=== PATIENT | male | born 1935 | race Caucasian/White ===

== ENCOUNTER 2017-03-26 06:00 | Outpatient (RCR) | payer SELFPAY | END 2017-04-17 23:59 | LOC: PR 06:00 | PROVIDERS: Family Provider Physician Assistant; PCP Physician Assistant; Visit Provider Family Medicine Geriatric Medicine | DX: Z00.00 Encounter for general adult medical examination without abnormal findings (principal) ==

== ENCOUNTER → 2017-07-04 06:58 | Outpatient (CLI) | payer MEDICARE, SELFPAY | PROVIDERS: Family Provider Physician Assistant; PCP Physician Assistant; Visit Provider Urology | DX: R97.20 Elevated prostate specific antigen [PSA] (principal) | CPT/HCPCS: 36415; 84153 ==

== ENCOUNTER → 2017-08-29 06:34 | Outpatient (CLI) | payer MEDICARE, SELFPAY ==
[2017-08-29 07:40] LABS: ALB/GLOB Ratio 1.1 RATIO (0.9-2.4); AST(SGOT) 16 U/L (15-37); Alanine Aminotransfer ALT/SGPT 22 U/L (16-61); Albumin, Serum 3.7 g/dL (3.2-5.0); Alkaline Phosphatase 80 U/L (45-117); Anion Gap 8 (5-15); BUN 20 mg/dL (7-18); BUN/Creat Ratio 16.9 RATIO (10-20); Calcium,Total 8.4 mg/dL (8.5-10.1); Chloride 101 mmol/L (98-107); Cholesterol 166 mg/dL (200); Creatinine, Serum 1.18 mg/dL (0.70-1.30); EST Glomerular Filtration Rate 63 mL/min (>60); Est Glom Filt Rate - Afr Amer 76 mL/min (>60); Globulin 3.5 g/dL (2.2-4.2); Glucose 92 mg/dL (74-106); High Density Lipoprotein 62 mg/dL; Potassium 4.2 mmol/L (3.5-5.1); Protein, Total 7.2 g/dL (6.4-8.2); Sodium Level 133 mmol/L (136-145); Thyroid Stim Hormone (TSH) 4.69 uIU/mL (0.358-3.74); Triglycerides 120 mg/dL; Very Low Density Lipoprotein 24 mg/dL (5-40)
[2017-08-29 08:18] LABS: Hemoglobin A1c 6.2 % (4.2-6.3)
[2017-08-30 08:21] LABS: Vitamin D,25 Hydroxy 24.6 ng/mL (29.95-100.01)
== END ==
PROVIDERS: Family Provider Physician Assistant; PCP Physician Assistant; Visit Provider Physician Assistant
DX: E11.22 Type 2 diabetes mellitus with diabetic chronic kidney disease (principal); N18.3 Chronic kidney disease, stage 3 (moderate); E78.2 Mixed hyperlipidemia; E55.9 Vitamin D deficiency, unspecified
CPT/HCPCS: 36415; 80053; 80061; 82306; 83036; 84443

== ENCOUNTER 2017-10-27 22:57 | Emergency (ER) | payer MEDICARE, SELFPAY ==
[2017-10-27 22:59] VITALS: BP 165/73; PULSE 55; RESP 16; TEMP 36.8; O2SAT 98; BMI 32.4
[2017-10-27 23:19] VITALS: BP 159/82; BP 170/77; BP 174/74; BP 174/77; PULSE 55; PULSE 56; PULSE 57; PULSE 58; RESP 14; O2SAT 96
--- NOTE | 2017-10-27 23:20 | ED.DCSUM_ITS ---
- ER Visit Summary Date of Service: 10/27/17 Chief Complaint: Acute generalized weakness and dizziness History of Present Illness: The patient is a 82 M history of CAD prior AR, cardiac stents ?3 and triple bypass. Patient also has a history of a prior prostatectomy for prostate CA. States 1-2 hours ago he had onset of dizziness. He did denies room spinning. He denies headache. He denies chest pain or shortness of breath. He just feels weak all over. No syncope. Denies any slurred speech or unilateral weakness or numbness. Denies any visual change. He denies any recent illness. Said he felt fine all day. Denies any nausea, vomiting, diarrhea, melena, fever or chills. No dysuria. Physical Examination: Well appearing older male comes in by his . Vital signs are stable afebrile. His heart rate is 55 they state that is his baseline he is on a beta-rabia. HEENT exam unremarkable. No facial droop. No slurred speech. Neck nontender. Lungs clear to auscultation bilaterally. Heart bradycardic rate 50-60 no appreciable murmur. Normal sinus rhythm. Abdomen soft and nontender. Normal bowel sounds. No peritoneal signs. He is moving all 4 extremities. They are neurovascularly intact. 5 out of 5 electronic semiconductor processor strength. Dorsi plantar flexion intact. No edema. Neurologically is awake and alert with no focal motor or sensory deficits. NIH is 0. Test Results: CBC normal. Normal hemoglobin and white count. Electrolytes unremarkable. Slightly signs of mild dehydration with a BUN 3 and a creatinine of 1. Troponin normal. Initial EKG sinus bradycardia rate of 52 but no change from prior EKG from 2016. Chest x-ray chronic changes no acute process with a prior sternotomy. Read both by myself and the radiologist. CAT scan of the brain showed chronic changes with chronic white matter changes but no acute process. No acute bleed or stroke as read by the radiologist and reviewed by me. His initial orthostatic vital signs his blood pressure did drop with standing. He was treated with p.o. fluids. Multiple repeat exams currently is doing well at 00 57. He walked to the bathroom on his own without any difficulty. His neurologic exam remains normal. Emergency Department Course and Treatment: Older male with known cardiac disease with onset of dizziness. Clinically this is not vertigo. He has a normal neurologic exam. He has had recent carotid studies which showed less than or equal to 50% stenosis. Currently has a normal neurologic exam Treatment Plan: Patient and are comfortable with him being discharged home. He will follow-up with his primary care provider as needed. Return if worse. Disposition: Discharge Impression: Acute generalized weakness and dizziness of uncertain etiology This note was generated with Brightfish dictation software. It may contain incorrect words, spelling, and punctuation that were not noted in review of the chart prior to signing ED Disposition - Plan for ED Patient: Chief Complaint: Dizziness Referrals: Chapito Das PA [Primary Care Provider] -
[2017-10-27 23:29] LABS: Absolute Lymphocyte Count 3.47 X10^3/ul (0.83-4.51); Absolute Neutrophil Count 3.5 X10^3/uL (2.0-7.7); Basophil# 0.05 X10^3/uL; Basophil% 0.6 % (0-1); Eosinophil# 0.65 X10^3/uL; Eosinophils% 7.5 % (0-5); Hematocrit 40.4 % (40-54); Hemoglobin 13.3 g/dl (13.0-16.5); Lymphocyte # 3.47 X10^3/ul (4.0); Lymphocyte % 40.1 % (19-41); Mean Corp Hgb Conc 32.9 g/gl (32-36); Mean Corpuscular Hgb 32.2 pg (27.0-32.0); Mean Corpuscular Volume 97.8 fL (80-94); Mean Platelet Vol. 9.4 fl (6.2-12.0); Monocyte# 0.94 X10^3/uL; Monocyte% 10.9 % (0-10); Neutrophil # 3.53 X10^3/uL (2.7-7.7); Neutrophil % 40.8 % (47-70); POSITIVE COUNT NO; POSITIVE DIFFERENTIAL NO; POSITIVE MORPHOLOGY NO; Platelet Count 200 K/mm3 (150-450); RBC Distribution Width CV 14.7 % (11.6-14.6); RBC Distribution Width SD 51.7 fl (35.1-43.9); Red Blood Count 4.13 M/mm3 (4.6-6.2); White Blood Count 8.7 K/mm3 (4.4-11.0)
[2017-10-27 23:46] LABS: Anion Gap 11 (5-15); BUN 23 mg/dL (7-18); BUN/Creat Ratio 22.1 RATIO (10-20); Calcium,Total 8.4 mg/dL (8.5-10.1); Chloride 100 mmol/L (98-107); Creatinine, Serum 1.04 mg/dL (0.70-1.30); EST Glomerular Filtration Rate 73 mL/min (>60); Est Glom Filt Rate - Afr Amer 88 mL/min (>60); Estimated Creatinine Clearance 62.96 ml/min; Glucose 109 mg/dL (74-106); Potassium 4.3 mmol/L (3.5-5.1); Sodium Level 136 mmol/L (136-145)
[2017-10-28 00:15] VITALS: BP 171/70; PULSE 52; RESP 20; O2SAT 94
--- NOTE | 2017-10-28 00:58 | ED.DEP ---
ED Disposition - Plan for ED Patient: Disposition: Home or Assisted Living Chief Complaint: Dizziness Instructions: ED Dizziness [facility] Referrals: Chapito Das PA [Primary Care Provider] - 3-5 Days if not improving Additional Instructions: Plenty of fluids and rest. Follow-up your primary care physician if not improving or return to the ER if feeling worse.
[2017-10-28 01:00] VITALS: BP 171/67; PULSE 50; RESP 15; O2SAT 97
== END 2017-10-28 01:07 | disposition home or self-care (01) ==
PROVIDERS: Emergency Provider Emergency Medicine; Family Provider Physician Assistant; PCP Physician Assistant
DX: R53.1 Weakness (principal); R42 Dizziness and giddiness; I25.10 Atherosclerotic heart disease of native coronary artery without angina pectoris; I25.2 Old myocardial infarction; Z95.1 Presence of aortocoronary bypass graft; Z95.5 Presence of coronary angioplasty implant and graft; Z85.46 Personal history of malignant neoplasm of prostate; E78.00 Pure hypercholesterolemia, unspecified; Z79.82 Long term (current) use of aspirin; Z79.01 Long term (current) use of anticoagulants; Z79.899 Other long term (current) drug therapy
CPT/HCPCS: 70450; 71045; 80048; 84484; 85025; 93005; 99284; A4216

== ENCOUNTER → 2018-01-02 06:41 | Outpatient (CLI) | payer MEDICARE, SELFPAY ==
[2018-01-02 07:21] LABS: Hematocrit 39.7 % (40-54); Hemoglobin 13.2 g/dl (13.0-16.5); Mean Corp Hgb Conc 33.2 g/gl (32-36); Mean Corpuscular Hgb 32.2 pg (27.0-32.0); Mean Corpuscular Volume 96.8 fL (80-94); Mean Platelet Vol. 9.5 fl (6.2-12.0); Platelet Count 204 K/mm3 (150-450); RBC Distribution Width CV 14.5 % (11.6-14.6); RBC Distribution Width SD 49.6 fl (35.1-43.9); White Blood Count 7.8 K/mm3 (4.4-11.0)
[2018-01-02 07:22] LABS: Scan Indicated on CBC? Y/N NO
[2018-01-02 07:51] LABS: ALB/GLOB Ratio 1.1 RATIO (0.9-2.4); AST(SGOT) 14 U/L (15-37); Alanine Aminotransfer ALT/SGPT 20 U/L (16-61); Albumin, Serum 3.6 g/dL (3.2-5.0); Alkaline Phosphatase 81 U/L (45-117); Anion Gap 7 (5-15); BUN 25 mg/dL (7-18); Calcium,Total 8.2 mg/dL (8.5-10.1); Chloride 101 mmol/L (98-107); Cholesterol 171 mg/dL (200); Creatinine, Serum 1.19 mg/dL (0.70-1.30); EST Glomerular Filtration Rate 62 mL/min (>60); Est Glom Filt Rate - Afr Amer 75 mL/min (>60); Globulin 3.4 g/dL (2.2-4.2); Glucose 87 mg/dL (74-106); High Density Lipoprotein 52 mg/dL; Potassium 4.5 mmol/L (3.5-5.1); Sodium Level 134 mmol/L (136-145); Triglycerides 142 mg/dL; Very Low Density Lipoprotein 28 mg/dL (5-40)
[2018-01-02 08:55] LABS: Vitamin D,25 Hydroxy 61.7 ng/mL (29.95-100.01)
== END ==
PROVIDERS: Family Provider Physician Assistant; PCP Physician Assistant; Referring Provider Physician Assistant; Visit Provider Physician Assistant
DX: N18.3 Chronic kidney disease, stage 3 (moderate) (principal); J44.9 Chronic obstructive pulmonary disease, unspecified; E78.2 Mixed hyperlipidemia
CPT/HCPCS: 36415; 80053; 80061; 82306; 85027

== ENCOUNTER 2018-05-23 09:42 | Emergency (ER) | payer MEDICARE, SELFPAY ==
[2018-05-23 09:42] VITALS: BP 139/65; PULSE 70; RESP 16; TEMP 36.2; O2SAT 95; BMI 33.4
--- NOTE | 2018-05-23 09:58 | RAD_ITS ---
STUDY: X-RAY - LEFT ELBOW REASON FOR EXAM: Male, 82 years old. Increased swelling of the left elbow after fall TECHNIQUE: 3 view(s) of the elbow. COMPARISON: None. FINDINGS: Normal visualized humerus, radius and ulna. Normal radiocapitellar and ulnotrochlear articulations. The soft tissue structures are unremarkable. There is no demonstrated fracture. Enthesophyte at the medial humeral epicondyle. RAD/Elbow min 3 Views IMPRESSION: No acute findings Electronically Signed: Wilbert Salazar DO at 10:39 EST Tel , Service support ,
--- NOTE | 2018-05-23 10:07 | ED.VIS.GEN ---
History of Present Illness Chief Complaint: Upper Extremity Injury Informant: Patient Onset: Today Context: Sudden Onset - awoke w/ sx this AM Timing: Continuous Quality: sore/painful Location: left elbow Current Severity: Moderate Maximum Severity: Moderate Worsened by: movement Relieved by: remaining still Associated Symptoms: swelling at elbow Narrative: LHD. Patient states he slipped on ice and fell onto his left upper extremity 1 week or more ago. He did not have discomfort he states until this morning when he woke up. Swelling started this morning too. He states he fell against his left shoulder but that has not been bothering him at all, and still is not no other injuries. He takes Plavix from a history of heart stents. - Past Medical History (1) CAD (coronary artery disease) Status: Chronic (2) COPD (chronic obstructive pulmonary disease) Status: Chronic (3) HLD (hyperlipidemia) Status: Chronic (4) HTN (hypertension) Status: Chronic (5) History of prostate cancer Status: Chronic (6) Hypothyroidism Status: Chronic Past Medical History - Allergies and Home Meds Allergies/Adverse Reactions: Allergies Penicillins Allergy (Verified 05/23/18 09:44) Hives Sulfa (Sulfonamide Antibiotics) Allergy (Verified 05/23/18 09:44) Hives minocycline Adverse Reaction (Verified 05/23/18 09:44) Nausea Primary Care Physician: Chapito Das PA [Primary Care Provider] - Surgical History: coronary bypass surgery Lives: Alone Smoking Status: Former smoker Review of Systems Gastrointestinal: Denies: Nausea, Vomiting Musculoskeletal: Reports: Swelling - Focal at left elbow, Extremity Pain. Denies: Neck pain, Back pain Neurological: Denies: Headache, Weakness, Parasthesia Physical Exam Vital Signs/Narrative: Vital Signs Temp Pulse Resp BP Pulse Ox 05/23/18 09:42 97.2 F L 70 16 139/65 H 95 Inital Vital Signs reviewed: Yes General: Well nourished, Well developed, No Acute Distress Head: Normocephalic, Atraumatic Extremities: Tenderness - Tenderness and swelling with ecchymosis about left radial head area. Olecranon nontender. Full range of motion with regards to flexion and extension, but has painful supination and pronation, limited due to pain. , - - Nontender throughout all bony aspects of left shoulder girdle, full range of motion without pain there. Skin: Normal color, Trauma - Ecchymosis about lateral aspect of left elbow. Skin is intact. Neurological: Alert, Oriented x3, Cranial nerves II-XII grossly intact, Normal Strength, Normal Sensation, Normal Gait, - - Left upper extremity radial, median, ulnar nerve function all intact, including AIN, PIN. Psychological: Normal affect, Normal Mood Diagnostic/Tx/Re-eval Clinical Impression(s) from Imaging Studies Elbow X-Ray 05/23/18 09:58 IMPRESSION: No acute findings Electronically Signed: Wilbert Salazar DO at 10:39 EST Tel , Service support , - Medical Decision Making X-rays are negative but I am suspicious of a possible occult radial head fracture. That is exactly where he is hurting and bruised. Will give him a sling. He declined analgesics here and states he has them at home. Advised to avoid heat and apply ice as needed, and follow-up with orthopedics. He is comfortable with that plan. ED Disposition - Plan for ED Patient: Disposition: Home or Assisted Living Diagnosis: Injury of elbow, left Instructions: ED Fx Radial Head Referrals: Chapito Das PA [Primary Care Provider] - Addison Garcia MD [STAFF PHYSICIAN] - (Call for appointment to be seen within the next week.) Additional Instructions: Use sling as much as you need. Let pain be your guide on what to do with your elbow. Pain medication and ice as needed, avoid applying heat.
== END 2018-05-23 12:48 | disposition home or self-care (01) ==
PROVIDERS: Emergency Provider Emergency Medicine; Family Provider Physician Assistant; PCP Physician Assistant
DX: S59.902A Unspecified injury of left elbow, initial encounter (principal); W00.9XXA Unspecified fall due to ice and snow, initial encounter; Y93.9 Activity, unspecified; Y92.9 Unspecified place or not applicable; I25.10 Atherosclerotic heart disease of native coronary artery without angina pectoris; I10 Essential (primary) hypertension; J44.9 Chronic obstructive pulmonary disease, unspecified; E78.5 Hyperlipidemia, unspecified; E03.9 Hypothyroidism, unspecified; Z95.1 Presence of aortocoronary bypass graft; Z95.5 Presence of coronary angioplasty implant and graft; Z85.46 Personal history of malignant neoplasm of prostate; Z79.01 Long term (current) use of anticoagulants; Z79.82 Long term (current) use of aspirin; Z79.899 Other long term (current) drug therapy; Z87.891 Personal history of nicotine dependence
CPT/HCPCS: 73080; 99283

== ENCOUNTER → 2018-06-07 07:01 | Outpatient (CLI) | payer MEDICARE, SELFPAY ==
[2018-05-23 09:42] VITALS: BMI 33.4
[2018-06-07 08:48] LABS: Hematocrit 41.9 % (40-54); Hemoglobin 13.5 g/dl (13.0-16.5); Mean Corp Hgb Conc 32.2 g/gl (32-36); Mean Corpuscular Hgb 31.5 pg (27.0-32.0); Mean Corpuscular Volume 97.9 fL (80-94); Mean Platelet Vol. 9.9 fl (6.2-12.0); Platelet Count 186 K/mm3 (150-450); RBC Distribution Width CV 14.9 % (11.6-14.6); RBC Distribution Width SD 51.5 fl (35.1-43.9); Red Blood Count 4.28 M/mm3 (4.6-6.2)
[2018-06-07 08:54] LABS: Scan Indicated on CBC? Y/N NO
[2018-06-07 09:11] LABS: Cholesterol 178 mg/dL (200); High Density Lipoprotein 55 mg/dL; Triglycerides 177 mg/dL; Very Low Density Lipoprotein 35 mg/dL (5-40)
[2018-06-07 09:56] LABS: ALB/GLOB Ratio 1.2 RATIO (0.9-2.4); AST(SGOT) 17 U/L (15-37); Alanine Aminotransfer ALT/SGPT 23 U/L (16-61); Albumin, Serum 3.7 g/dL (3.2-5.0); Alkaline Phosphatase 86 U/L (45-117); Anion Gap 6 (5-15); BUN 18 mg/dL (7-18); BUN/Creat Ratio 17.5 RATIO (10-20); Calcium,Total 8.6 mg/dL (8.5-10.1); Chloride 101 mmol/L (98-107); Creatinine, Serum 1.03 mg/dL (0.70-1.30); EST Glomerular Filtration Rate 74 mL/min (>60); Est Glom Filt Rate - Afr Amer 90 mL/min (>60); Globulin 3.1 g/dL (2.2-4.2); Glucose 83 mg/dL (74-106); Potassium 4.6 mmol/L (3.5-5.1); Protein, Total 6.8 g/dL (6.4-8.2); Sodium Level 134 mmol/L (136-145)
== END ==
PROVIDERS: Family Provider Physician Assistant; PCP Physician Assistant; Referring Provider Urology; Visit Provider Urology
DX: C61 Malignant neoplasm of prostate (principal); E78.2 Mixed hyperlipidemia; I25.119 Atherosclerotic heart disease of native coronary artery with unspecified angina pectoris; N18.3 Chronic kidney disease, stage 3 (moderate); E29.1 Testicular hypofunction; R97.20 Elevated prostate specific antigen [PSA]
CPT/HCPCS: 36415; 80053; 80061; 84153; 84403; 85027

== ENCOUNTER 2019-08-06 18:49 | Emergency (ER) | payer MEDICARE, SELFPAY ==
[2018-09-30 08:52] VITALS: BMI 32.8
[2019-08-06 18:49] VITALS: BP 152/85; PULSE 65; RESP 16; TEMP 36.1; O2SAT 97; BMI 31.9
--- NOTE | 2019-08-06 19:53 | ED.VIS.GEN ---
History of Present Illness Chief Complaint: Lower Extremity Injury Informant: Patient Narrative: Patient states for the past 2 weeks he has had pain in his calf. He thinks that maybe he bumped his upper right thigh because it started to turn green. Now he has some red dots on the lower leg. He is on aspirin and Plavix. He states he spoke with primary care and they wanted him to come in for an ultrasound to rule out DVT. No fevers. Past Medical History - Allergies and Home Meds Allergies/Adverse Reactions: Allergies Penicillins Allergy (Verified 05/23/18 09:44) Hives Sulfa (Sulfonamide Antibiotics) Allergy (Verified 05/23/18 09:44) Hives minocycline Adverse Reaction (Verified 05/23/18 09:44) Nausea Primary Care Physician: Chapito Das PA [Primary Care Provider] - 3-5 Days Surgical History: coronary bypass surgery Smoking Status: Former smoker Review of Systems General: Denies: Chills, Fever, Sweats Eyes: Denies: Visual changes - bilaterally, Diplopia ENT: Denies: Rhinorrhea, Sore throat Cardiovascular: Denies: Chest pain, Palpitations Respiratory: Denies: Dyspnea, Cough, Dyspnea on exertion Gastrointestinal: Denies: Abdominal pain, Nausea, Vomiting, Diarrhea, Melena, Hematochezia Genitourinary: Denies: Dysuria, Hematuria, Frequency Musculoskeletal: Reports: Swelling, Extremity Pain. Denies: Back pain Skin: Denies: Rash, Wounds Neurological: Denies: Headache, Weakness, Numbness Physical Exam Vital Signs/Narrative: Vital Signs Temp Pulse Resp BP Pulse Ox 08/06/19 18:49 97 F L 65 16 152/85 H 97 Inital Vital Signs reviewed: Yes General: Well nourished, Well developed, No Acute Distress Head: Normocephalic, Atraumatic Eyes: Perrl, EOMI ENT: Moist mucous membranes, No rhinorrhea Neck: Supple, Nontender Cardiovascular: Regular rate, Regular rhythm, No murmurs Respiratory: No distress, CTA bilaterally, Chest nontender Abdomen: Soft, Nontender, Nondistended, Normal bowel sounds Back: Nontender, Normal Inspection Extremities: Edema - Right slightly larger than left leg swelling on gross examination, Calf Tenderness - Patient is tender in the proximal calf and popliteal fossa., - - There is some nonblanching flat erythematous areas on his very distal right leg. There are not necessarily increased warmth. They do not change with elevation. Skin: Normal color, No rash Neurological: Alert, Oriented x3, Cranial nerves II-XII grossly intact, Normal Strength, Normal Sensation Psychological: Normal affect, Normal Mood Diagnostic/Tx/Re-eval - Medical Decision Making Duplex ultrasound reveals a fluid collection consistent with a Arango's cyst versus hematoma. I will see any ecchymosis in the region I think is most likely a Arango's cyst. Have him follow-up with primary care return if worsening or concerns ED Disposition - Plan for ED Patient: Disposition: Home or Assisted Living Diagnosis: Bakers cyst Instructions: ED Cyst Arango Referrals: Chapito Das PA [Primary Care Provider] - 3-5 Days
--- NOTE | 2019-08-06 19:56 | US_ITS ---
STUDY: VENOUS DOPPLER ULTRASOUND - RIGHT LOWER EXTREMITY REASON FOR EXAM: Male, 84 years old. RT LEG REDNESS AND SWELLING AROUND ANKLE-started posterior rt knee TECHNIQUE: Ultrasound evaluation of the deep vein system to include adams-scale imaging and compression was performed. Adams-scale imaging and Doppler sonographic evaluation, including duplex spectral analysis and qualitative color flow sonography, was performed. COMPARISON: None. FINDINGS: Common Femoral Vein: Normal compression, spontaneity and augmentation. Normal color Doppler. Common Femoral Vein/Greater Saphenous Junction: Normal compression. Deep Femoral Vein: Not assessed Femoral Proximal: Normal compression. Femoral Middle: Normal compression, spontaneity and augmentation. Normal color Doppler. Femoral Distal: Normal compression. Popliteal Vein: Normal compression, spontaneity and augmentation. Normal color Doppler. Posterior Tibial Vein: Normal compression. Peroneal Vein: Normal compression. Complex anechoic structure in the popliteal fossa, measuring 3.5 x 2.5 x 1.5 cm with a larger anechoic structure measuring 5.0 x 4.2 x 0.9 cm. US/Venous Duplex Imag/Limited/Uni IMPRESSION: No evidence for DVT of the left lower extremity. Complex anechoic structure in the popliteal fossa most likely represents a Arango''s cyst or hematoma. Electronically Signed: Joon Sandoval, at 21:02 EDT Tel , Service support ,
[2019-08-06 21:25] VITALS: BP 145/80; PULSE 68; RESP 16; O2SAT 99
== END 2019-08-06 21:30 | disposition home or self-care (01) ==
LOC: ED 21:26
PROVIDERS: Emergency Provider Emergency Medicine; PCP Physician Assistant
DX: M71.21 Synovial cyst of popliteal space [Baker], right knee (principal); M79.661 Pain in right lower leg; Z79.82 Long term (current) use of aspirin; Z79.02 Long term (current) use of antithrombotics/antiplatelets; Z95.5 Presence of coronary angioplasty implant and graft; Z79.891 Long term (current) use of opiate analgesic
CPT/HCPCS: 93971; 99282

== ENCOUNTER → 2020-01-02 06:59 | Outpatient (CLI) | payer MEDICARE, SELFPAY ==
[2020-01-02 08:27] LABS: Absolute Lymphocyte Count 2.67 X10^3/uL (0.83-4.51); Absolute Neutrophil Count 3.2 X10^3/uL (2.0-7.7); Basophil# 0.05 X10^3/uL; Basophil% 0.7 % (0-1); Eosinophil# 0.45 X10^3/uL; Eosinophils% 6.3 % (0-5); Hematocrit 39.5 % (40-54); Hemoglobin 12.7 g/dL (13.0-16.5); Lymphocyte # 2.67 X10^3/ul (4.0); Lymphocyte % 37.7 % (19-41); Mean Corp Hgb Conc 32.2 g/dL (32-36); Mean Corpuscular Hgb 31.7 pg (27.0-32.0); Mean Corpuscular Volume 98.5 fL (80-94); Mean Platelet Vol. 9.9 fl (6.2-12.0); Monocyte# 0.66 X10^3/uL; Monocyte% 9.3 % (0-10); NRBC Flagged by Analyzer 0 % (0-5); Neutrophil # 3.23 X10^3/uL (2.7-7.7); Neutrophil % 45.6 % (47-70); Platelet Count 175 K/mm3 (150-450); RBC Distribution Width CV 14.6 % (11.6-14.6); RBC Distribution Width SD 53.1 fl (35.1-43.9); Red Blood Count 4.01 M/mm3 (4.6-6.2); White Blood Count 7.1 K/mm3 (4.4-11.0)
[2020-01-02 09:29] LABS: Vitamin D,25 Hydroxy 51.7 ng/mL
[2020-01-02 12:01] LABS: AST(SGOT) 15 U/L (15-37); Alanine Aminotransfer ALT/SGPT 21 U/L (16-61); Albumin, Serum 3.5 g/dL (3.2-5.0); Alkaline Phosphatase 86 U/L (45-117); Anion Gap 5 (5-15); BUN 21 mg/dL (7-18); BUN/Creat Ratio 19.1 RATIO (10-20); Calcium,Total 8.2 mg/dL (8.5-10.1); Chloride 104 mmol/L (98-107); Cholesterol 159 mg/dL (200); EST Glomerular Filtration Rate 68 mL/min (>60); Est Glom Filt Rate - Afr Amer 82 mL/min (>60); Globulin 3.4 g/dL (2.2-4.2); Glucose 86 mg/dL (74-106); High Density Lipoprotein 63 mg/dL; Potassium 4.2 mmol/L (3.5-5.1); Protein, Total 6.9 g/dL (6.4-8.2); Sodium Level 136 mmol/L (136-145); Triglycerides 104 mg/dL; Very Low Density Lipoprotein 21 mg/dL (5-40)
== END ==
PROVIDERS: PCP Physician Assistant; Referring Provider Physician Assistant; Visit Provider Physician Assistant
DX: I25.119 Atherosclerotic heart disease of native coronary artery with unspecified angina pectoris (principal); N18.2 Chronic kidney disease, stage 2 (mild); E78.2 Mixed hyperlipidemia; E55.9 Vitamin D deficiency, unspecified; C61 Malignant neoplasm of prostate
CPT/HCPCS: 36415; 80053; 80061; 82306; 84153; 85025

== ENCOUNTER 2020-04-23 08:50 | Emergency (ER) | payer MEDICARE, SELFPAY ==
[2020-01-22 09:07] VITALS: BMI 31.9
[2020-04-23 08:52] VITALS: BP 107/56; PULSE 71; RESP 22; TEMP 36.1; O2SAT 96; BMI 32.1
[2020-04-23 09:29] VITALS: BP 126/57; PULSE 61; RESP 15; O2SAT 95
--- NOTE | 2020-04-23 09:35 | RAD_ITS ---
STUDY: X-RAY CHEST REASON FOR EXAM: Male, 84 years old. Fever and cough TECHNIQUE: Single AP portable view of the chest. COMPARISON: 2017 FINDINGS: EKG leads overlie the chest The lungs are clear and expanded. There is no demonstrated pleural abnormality. Sternal cerclage wires and vascular clips are present from a prior sternotomy and coronary artery bypass graft procedure (CABG). Normal mediastinum and carlos. Normal visualized pulmonary arteries. Normal visualized aortic arch and descending thoracic aorta. Normal visualized thoracic spine. Normal visualized ribs, clavicles, and shoulders. There is no demonstrated abnormality of the visualized soft tissue structures of the upper abdomen. RAD/Chest 1 View (Portable) IMPRESSION: No acute pulmonary process Electronically Signed: Arnold Brizuela MD at 10:55 EST , Service support ,
--- NOTE | 2020-04-23 09:35 | EKG12_ITS ---
Test Reason : FATIGUE Blood Pressure : / mmHG Vent. Rate : 061 BPM Atrial Rate : 061 BPM P-R Int : 218 ms QRS Dur : 094 ms QT Int : 444 ms P-R-T Axes : 036 -17 029 degrees QTc Int : 446 ms Sinus rhythm with 1st degree A-V block Otherwise normal ECG Confirmed by HUGO BOLTON, LENNIE ([id number]), book editor JILLIAN DE LA GARZA ([id number]) on 04/26/2020 8:17:41 AM Referred By: KIARA Confirmed By:LENNIE ARIAS MD
[2020-04-23 10:05] VITALS: PULSE 69; RESP 16
[2020-04-23 10:13] LABS: Absolute Lymphocyte Count 2.24 X10^3/uL (0.83-4.51); Absolute Neutrophil Count 2.8 X10^3/uL (2.0-7.7); Basophil# 0.01 X10^3/uL; Basophil% 0.2 % (0-1); Eosinophil# 0.05 X10^3/uL; Eosinophils% 0.8 % (0-5); Hematocrit 39.2 % (40-54); Hemoglobin 13.1 g/dL (13.0-16.5); Lymphocyte # 2.24 X10^3/ul (4.0); Lymphocyte % 37.5 % (19-41); Mean Corp Hgb Conc 33.4 g/dL (32-36); Mean Corpuscular Hgb 31.2 pg (27.0-32.0); Mean Corpuscular Volume 93.3 fL (80-94); Mean Platelet Vol. 9.6 fl (6.2-12.0); Monocyte# 0.89 X10^3/uL; Monocyte% 14.9 % (0-10); NRBC Flagged by Analyzer 0 % (0-5); Neutrophil # 2.78 X10^3/uL (2.7-7.7); Neutrophil % 46.4 % (47-70); Platelet Count 150 K/mm3 (150-450); RBC Distribution Width CV 14.3 % (11.6-14.6); RBC Distribution Width SD 48.6 fl (35.1-43.9)
[2020-04-23 10:27] LABS: AST(SGOT) 29 U/L (15-37); Alanine Aminotransfer ALT/SGPT 29 U/L (16-61); Albumin, Serum 3.4 g/dL (3.2-5.0); Alkaline Phosphatase 87 U/L (45-117); Anion Gap 7 (5-15); BUN 19 mg/dL (7-18); BUN/Creat Ratio 18.4 RATIO (10-20); Calcium,Total 8.2 mg/dL (8.5-10.1); Chloride 97 mmol/L (98-107); Creatinine, Serum 1.03 mg/dL (0.70-1.30); EST Glomerular Filtration Rate 73 mL/min (>60); Est Glom Filt Rate - Afr Amer 89 mL/min (>60); Estimated Creatinine Clearance 59.64 ml/min; Globulin 3.4 g/dL (2.2-4.2); Glucose 104 mg/dL (74-106); Potassium 4.3 mmol/L (3.5-5.1); Protein, Total 6.8 g/dL (6.4-8.2); Sodium Level 128 mmol/L (136-145)
[2020-04-23 10:36] LABS: Lactic Acid 1.1 mmol/L (0.4-1.9)
--- NOTE | 2020-04-23 10:37 | ED.DCSUM_ITS ---
- ER Visit Summary Date of Service: 04/23/20 Chief Complaint: Weakness History of Present Illness: The patient is a 84 M who presents with generalized weakness that is been getting worse over the past couple days. Patient states his symptoms began approximately 1-1/2 weeks ago. Patient had a positive COVID- 19 PCR test yesterday. Patient does admit to some general aches. Patient also admits to some pain in his chest. Patient denies any shortness of breath or cough. Patient states his symptoms improve whenever he lays down. Patient denies any fevers or chills. Patient denies any loss of taste or smell. Patient states his also tested positive for COVID-19. Physical Examination: Vital signs are stable. Patient is afebrile. Patient is in no acute distress. Oral mucosa is pink and moist. Neck is supple. Trachea is midline. There is no JVD noted. Heart was regular rate and rhythm. Lungs are diminished in the bases bilaterally. Abdomen is soft. Bowel sounds are normal. There is no tenderness. There is no rebound or guarding noted. Skin is warm dry. Cranial nerves II through XII are intact. There are no focal motor or sensory deficits noted. Extremities are intact. There is no calf tenderness or edema. Test Results: EKG was obtained. On my interpretation, there is a normal sinus rhythm with first-degree AV block with a rate of 61. There are no acute ST or T wave changes. Portable 1 view chest x-ray was obtained. On my interpretation, lung salazar are clear. There is normal cardiac silhouette. Bony thorax is normal. There is no acute process noted. Radiologist also interpreted the x- ray and agrees. CBC and comprehensive metabolic profile were obtained. There is mild hyponatremia with a sodium of 128. Lactate was normal. Emergency Department Course and Treatment: Patient was given albuterol inhaler here. Patient was feeling better on reevaluation. Patient was ambulated in his room and maintained pulse oximeter of 94% on room air. Patient was instructed t o continue his albuterol inhaler as needed. Patient was instructed to follow-up with his primary care physician in 3 to 5 days. Patient understood and was agreeable with the plan. All questions were answered. Disposition: Discharge home Impression: 1. COVID-19 This note was generated with Tamionation software. It may contain incorrect words, spelling, and punctuation that were not noted in review of the chart prior to signing ED Disposition - Plan for ED Patient: Disposition: Home or Assisted Living Diagnosis: COVID-19 Instructions: Coronavirus Disease 2019 (COVID-19): Overview Referrals: Chapito Das PA [Primary Care Provider] - 3-5 Days
[2020-04-23 11:15] VITALS: BP 137/92; PULSE 73; RESP 13; TEMP 36.7; O2SAT 94
[2020-04-23 12:23] VITALS: O2SAT 96
[2020-04-23 12:53] VITALS: BP 147/72; PULSE 68; RESP 15; O2SAT 95
== END 2020-04-23 13:17 | disposition home or self-care (01) ==
PROVIDERS: Emergency Provider Emergency Medicine; PCP Physician Assistant
DX: U07.1 COVID-19 (principal); I25.10 Atherosclerotic heart disease of native coronary artery without angina pectoris; Z95.1 Presence of aortocoronary bypass graft
CPT/HCPCS: 71045; 80053; 83605; 85025; 93005; 94640; 96360; 99284; J7040; A4216

== ENCOUNTER → 2020-06-16 06:32 | Outpatient (CLI) | payer MEDICARE, SELFPAY ==
[2020-06-16 07:55] LABS: AST(SGOT) 19 U/L (15-37); Alanine Aminotransfer ALT/SGPT 22 U/L (16-61); Albumin, Serum 3.6 g/dL (3.2-5.0); Alkaline Phosphatase 88 U/L (45-117); Bilirubin, Direct 0.14 mg/dL (0.00-0.30); Cholesterol 185 mg/dL (200); Globulin 3.8 g/dL (2.2-4.2); High Density Lipoprotein 68 mg/dL; Protein, Total 7.4 g/dL (6.4-8.2); Triglycerides 152 mg/dL; Very Low Density Lipoprotein 30 mg/dL (5-40)
== END ==
PROVIDERS: PCP Physician Assistant; Referring Provider Internal Medicine Cardiovascular Disease; Visit Provider Internal Medicine Cardiovascular Disease
DX: E78.00 Pure hypercholesterolemia, unspecified (principal)
CPT/HCPCS: 36415; 80061; 80076

== ENCOUNTER → 2021-03-01 10:28 | Outpatient (CLI) | payer MEDICARE, SELFPAY ==
--- NOTE | 2021-03-01 10:31 | ECHOD_ITS ---
Reason For Study: S/P CABG Procedure This was a 2D Doppler, Color Flow transthoracic echocardiogram. Exam performed in department. Left Ventricle Normal LV size. Left ventricular systolic function is normal. The estimated ejection fraction is 60 %. Stage 1 diastolic dysfunction. No regional wall motion abnormalities noted. Right Ventricle Normal RV size. Normal systolic function. Atria Normal left atrium. Normal right atrium. Mitral Valve Normal mitral valve. Tricuspid Valve Normal tricuspid valve. Mild tricuspid valve insufficiency. Aortic Valve Trisinus/trileaflet aortic valve. Mild (1+) aortic valve insufficiency. Pulmonic Valve The pulmonic valve is not well visualized. Great Vessels Normal aortic root. The pulmonary artery is normal size. Normal inferior vena cava. Pericardium/Pleural No pericardial effusion. MMode/2D Measurements & Calculations LVIDd: 5.1 cm IVSd: 1.1 cm LVOT diam: 2.1 cm LVIDs: 3.7 cm LVPWd: 1.3 cm LVOT area: 3.6 cm2 RVDd: 3.4 cm FS: 27.7 % Ao root diam: 3.4 cm LAV(MOD-bp): 92.6 ml LA A4 area: 27.5 cm2 LAV(MOD-bp) Indexed: 40.2 ml/m2 LAV(MOD-sp2): 91.7 ml LAV(MOD-sp4): 91.8 ml LA dimension(2D): 4.3 cm RA A4 area: 20.0 cm2 Time Measurements MV dec time: 0.20 sec Doppler Measurements & Calculations MV E max vernon: 71.1 cm/sec Lat Peak E' Vernon: 10.5 cm/sec Med Peak E' Vernon: 5.9 cm/sec MV A max vernon: 75.3 cm/sec E/E' lat: 6.8 E/E' med: 12.0 MV E/A: 0.94 Ao V2 max: 97.2 cm/sec AI max vernon: 390.3 cm/sec LV V1 max: 78.0 cm/sec Ao max P.8 mmHg AI max P.0 mmHg LV V1 max P.4 mmHg Ao V2 mean: 67.7 cm/sec AI dec slope: 161.6 cm/sec2 LV V1 mean P.2 mmHg Ao mean P.0 mmHg AI P1/2t: 707.5 msec LV V1 mean: 51.0 cm/sec Ao V2 VTI: 24.7 cm LV V1 VTI: 19.1 cm YAEL(I,D): 2.8 cm2 YAEL(V,D): 2.9 cm2 SV(LVOT): 69.0 ml PA V2 max: 85.5 cm/sec ECHO/Echo Complete Interpretation Summary Normal LV size. Left ventricular systolic function is normal. The estimated ejection fraction is 60 %. Stage 1 diastolic dysfunction. Mild (1+) aortic valve insufficiency. Ordering Physician: Jesús Antonio Referring Physician: Keaton Das Performed By: Roma Ch, PEYMAN, RVT
== END ==
PROVIDERS: PCP Physician Assistant; Referring Provider Internal Medicine Cardiovascular Disease; Visit Provider Internal Medicine Cardiovascular Disease
DX: I25.10 Atherosclerotic heart disease of native coronary artery without angina pectoris (principal)
CPT/HCPCS: 93306

== ENCOUNTER 2021-10-12 08:00 | Outpatient (RCR) | payer SELFPAY | END 2021-10-15 23:59 | LOC: PR 08:00 | PROVIDERS: PCP Physician Assistant; Visit Provider Family Medicine Geriatric Medicine | DX: Z00.00 Encounter for general adult medical examination without abnormal findings (principal) ==

== ENCOUNTER 2021-11-14 08:00 | Outpatient (RCR) | payer SELFPAY | END 2021-11-15 23:59 | LOC: PR 08:00 | PROVIDERS: PCP Physician Assistant; Referring Provider Family Medicine Geriatric Medicine; Visit Provider Family Medicine Geriatric Medicine | DX: Z00.00 Encounter for general adult medical examination without abnormal findings (principal) ==

== ENCOUNTER 2021-12-14 08:00 | Outpatient (RCR) | payer SELFPAY | END 2021-12-15 23:59 | LOC: PR 08:00 | PROVIDERS: PCP Physician Assistant; Referring Provider Family Medicine Geriatric Medicine; Visit Provider Family Medicine Geriatric Medicine | DX: Z00.00 Encounter for general adult medical examination without abnormal findings (principal) ==

== ENCOUNTER 2022-01-11 08:00 | Outpatient (RCR) | payer SELFPAY | END 2022-01-15 23:59 | LOC: PR 08:00 | PROVIDERS: PCP Physician Assistant; Referring Provider Family Medicine Geriatric Medicine; Visit Provider Family Medicine Geriatric Medicine | DX: Z00.00 Encounter for general adult medical examination without abnormal findings (principal) ==

== ENCOUNTER 2022-02-13 08:00 | Outpatient (RCR) | payer SELFPAY | END 2022-02-14 23:59 | LOC: PR 08:00 | PROVIDERS: PCP Physician Assistant; Referring Provider Family Medicine Geriatric Medicine; Visit Provider Family Medicine Geriatric Medicine | DX: Z00.00 Encounter for general adult medical examination without abnormal findings (principal) ==

== ENCOUNTER 2022-03-15 08:00 | Outpatient (RCR) | payer SELFPAY | END 2022-03-17 23:59 | LOC: PR 08:00 | PROVIDERS: PCP Physician Assistant; Referring Provider Family Medicine Geriatric Medicine; Visit Provider Family Medicine Geriatric Medicine | DX: Z00.00 Encounter for general adult medical examination without abnormal findings (principal) ==

== ENCOUNTER 2022-03-29 08:00 | Outpatient (RCR) | payer SELFPAY | END 2022-04-17 23:59 | LOC: PR 08:00 | PROVIDERS: PCP Physician Assistant; Visit Provider Family Medicine Geriatric Medicine | DX: Z00.00 Encounter for general adult medical examination without abnormal findings (principal) ==

== ENCOUNTER → 2022-12-18 | Outpatient (CLI) | payer MEDICARE, SELFPAY ==
--- NOTE | 2022-12-18 11:58 | RAD_ITS ---
INDICATION: ATHEROSCLEROSIS OF [place] CORONARY ARTERY, FATIGUE EXAMINATION/TECHNIQUE: X-RAY - XR Chest 2 Views COMPARISON: Prior study dated: 04/23/2020. FINDINGS: LINES/DEVICES: None. LUNGS: Mild stranding/scarring in the lung bases. No focal infiltrate is seen. No evidence of pleural effusions. MEDIASTINUM AND CARDIOVASCULAR STRUCTURES: Status post median sternotomy. Normal cardiac silhouette. BONES AND SOFT TISSUES: No demonstrated acute osseous changes. RAD/Chest PA and Lateral IMPRESSION: No radiographic evidence of acute cardiopulmonary disease. Electronically Signed: Elias Perkins MD at 12:58 EDT ,
== END | disposition home or self-care (01) ==
LOC: RAD 11:46
PROVIDERS: PCP Physician Assistant; Referring Provider Physician Assistant; Visit Provider Physician Assistant
DX: I25.119 Atherosclerotic heart disease of native coronary artery with unspecified angina pectoris (principal); R53.83 Other fatigue
CPT/HCPCS: 71046

== ENCOUNTER → 2022-12-19 | Outpatient (CLI) | payer MEDICARE, SELFPAY ==
[2022-12-19 08:16] LABS: Absolute Neutrophil Count 3.9 X10^3/uL (2.0-7.7); Basophil# 0.06 X10^3/uL; Basophil% 0.8 % (0-1); Eosinophil# 0.35 X10^3/uL; Eosinophils% 4.7 % (0-5); Hematocrit 35.7 % (40-54); Hemoglobin 11.6 g/dL (13.0-16.5); Lymphocyte % 29.6 % (19-41); Mean Corp Hgb Conc 32.5 g/dL (32-36); Mean Corpuscular Hgb 30.6 pg (27.0-32.0); Mean Corpuscular Volume 94.2 fL (80-94); Monocyte# 0.81 X10^3/uL; Monocyte% 10.9 % (0-10); NRBC Flagged by Analyzer 0 % (0-5); Neutrophil # 3.94 X10^3/uL (2.7-7.7); Neutrophil % 53.2 % (47-70); Platelet Count 251 K/mm3 (150-450); RBC Distribution Width CV 14.9 % (11.6-14.6); RBC Distribution Width SD 51.6 fl (35.1-43.9); Red Blood Count 3.79 M/mm3 (4.6-6.2); White Blood Count 7.4 K/mm3 (4.4-11.0)
[2022-12-19 08:33] LABS: ALB/GLOB Ratio 0.8 RATIO (0.9-2.4); AST(SGOT) 20 U/L (15-37); Alanine Aminotransfer ALT/SGPT 15 U/L (16-61); Alkaline Phosphatase 304 U/L (45-117); Anion Gap 7 (5-15); BUN 15 mg/dL (7-18); BUN/Creat Ratio 16.3 RATIO (10-20); Calcium,Total 8.4 mg/dL (8.5-10.1); Chloride 98 mmol/L (98-107); Cholesterol 138 mg/dL (200); Creatinine, Serum 0.92 mg/dL (0.70-1.30); EST Glomerular Filtration Rate 83 mL/min (>60); Est Glom Filt Rate - Afr Amer 100 mL/min (>60); Glucose 100 mg/dL (74-106); High Density Lipoprotein 58 mg/dL; Potassium 4.4 mmol/L (3.5-5.1); Sodium Level 129 mmol/L (136-145); Triglycerides 103 mg/dL; Very Low Density Lipoprotein 21 mg/dL (5-40)
[2022-12-19 09:32] LABS: Erythrocyte Sedimentation Rate 53 mm/hr (0-20)
== END | disposition home or self-care (01) ==
PROVIDERS: PCP Physician Assistant; Referring Provider Physician Assistant; Visit Provider Physician Assistant
DX: C61 Malignant neoplasm of prostate (principal); E78.2 Mixed hyperlipidemia; R53.83 Other fatigue; R63.4 Abnormal weight loss
CPT/HCPCS: 36415; 80053; 80061; 84153; 85025; 85652; 86140

== ENCOUNTER → 2022-12-27 | Outpatient (CLI) | payer MEDICARE, SELFPAY ==
--- NOTE | 2022-12-27 07:46 | RDU_ITS ---
Reason For Study: Abnormal weight loss Aorta Distal abdominal aorta 2.26 x 2.47 cm . Distal abdominal aorta peak systolic velocity is 147.4 cm/sec . . Celiac A - 410.5/88.3 cm/s Hepatic A - 317.0/ 92.9 cm/s Splenic A - Unable to visualize. SMA ALISE - 280.0/40.7 cm/s SMA Prox - 355.9/35.5 cm/s SMA Mid - 178.8/5.9 cm/s SMA Dist - 194.4/13.3 cm/s LORRAINE Prox - 97.9/12.4 cm/s. Procedures Mesenteric Artery Duplex with color and pulsed wave doppler. Limited views obtained. Technically difficult exam due to bowel gas and acoustic shadowing. 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
--- NOTE | 2022-12-27 07:46 | AAVD_ITS ---
Reason For Study: Abnormal weight loss Aorta Measurements Aorta Doppler Measurements Proximal aorta measures2.24 x 2.20cm. in cross- Peak systolic flow velocities within the proximal sectional axis. aorta measure 89.7 cm/sec. Proximal aorta measures2.28cm. in longitudinal Peak systolic flow velocities within the mid aorta axis. measure 90.2 cm/sec. Mid aorta measures2.68 x 2.55cm. in cross- Peak systolic flow velocities within the distal sectional axis. aorta measure 112.8 cm/sec. Mid aorta measures2.64cm. in longitudinal axis. Distal aorta measures2.63 x 2.60cm. in cross- sectional axis. Distal aorta measures2.59cm. in longitudinal axis. Left Iliac Artery Left iliac artery measures 1.57 x 1.58 cm. in the cross-sectional axis. Left iliac artery measures 1.61 cm. in the longitudinal axis. Peak systolic velocity in the left iliac artery measures 147.6 cm/sec. Right Iliac Artery Right iliac artery measures 0.88 x 0.93 cm. in the cross-sectional axis. Right iliac artery measures 0.95 cm. in the longitudinal axis. Peak systolic velocity in the right iliac artery measures 243.0 cm/sec. Procedure Aorta IVC Iliac vasculature or bypass grafts 36768. Exam performed in department. Technically difficult exam due to bowel gas and acoustic shadowing. VL/Abd Aortic/IVC Duplex scan Interpretation Summary Aorta patent with ectasia to 2.68 cm present Right iliac artery patent with ectasia to 1.58 cm present Left iliac artery normal caliber with >50% stenosis Ordering Physician: Chapito Das Referring Physician: Chapito Das Performed By: Al Ball RVT
--- NOTE | 2022-12-27 07:55 | US_ITS ---
INDICATION: WEIGHT LOSS EXAMINATION: Ultrasound US Kidney(s) complete (eg, kidneys and bladder) TECHNIQUE: Adams scale and color doppler images were obtained of the kidneys. COMPARISON: No relevant prior comparison study available FINDINGS: RIGHT KIDNEY: The right kidney measures 10.1 cm in length. There is no hydronephrosis. No shadowing calculus, focal lesion or perinephric collection is demonstrated. LEFT KIDNEY: The left kidney measures 11.6 cm in length. There is no hydronephrosis. No shadowing calculus, focal lesion or perinephric collection is demonstrated. URINARY BLADDER: No acute abnormality. US/Kidney and Bladder IMPRESSION: Within normal limits renal ultrasound. Electronically Signed: Mariana Jalloh MD at 13:17 EDT ,
== END | disposition home or self-care (01) ==
PROVIDERS: PCP Physician Assistant; Referring Provider Physician Assistant; Visit Provider Physician Assistant
DX: R09.89 Other specified symptoms and signs involving the circulatory and respiratory systems (principal); R63.4 Abnormal weight loss; R33.9 Retention of urine, unspecified; R35.0 Frequency of micturition
CPT/HCPCS: 76770; 93975; 93978

== ENCOUNTER → 2023-01-02 | Outpatient (CLI) | payer MEDICARE, SELFPAY ==
--- NOTE | 2023-01-02 08:55 | NM_ITS ---
CLINICAL: 87-year-old male with history of primary prostate carcinoma with rising serum PSA level. WHOLE BODY 99m Tc MDP RADIONUCLIDE BONE SCINTIGRAPHY COMPARISON: Previous whole body bone scintigraphy study dated 02/14/2015 FINDINGS: Following the intravenous administration of 26.9 mCi of 99m Tc MDP, whole body bone images reveal: 1. Newly visualized multifocal increased radiopharmaceutical concentration is defined in the axial skeletal structures to include the bilateral hemipelvis, right-left anterior and posterior ribs, multiple thoracic and lumbar vertebra, the sacrum, the bilateral proximal femurs and humerus. 2. Enhanced uptake appears evident in the right-left midfoot. 3. The remaining skeletal structures are scintigraphically unremarkable with normal-appearing renal images and urinary bladder activity identified. NM/Bone Scan Whole Body IMPRESSION: 1. The increase in tracer distribution multifocally defined in both the axial and appendicular skeleton is commensurate with diffuse skeletal metastatic disease. 2. Degenerative arthrosis is presently expressed in the bilateral midfoot. 3. Overall compared to the previous whole body bone scintigraphy study dated 02/14/2015, there is interim development of disseminated osseous metastasis. Electronically Signed: Wander Bergeron DO at 21:28 EDT ,
== END | disposition home or self-care (01) ==
PROVIDERS: PCP Physician Assistant; Referring Provider Urology; Visit Provider Urology
DX: C61 Malignant neoplasm of prostate (principal); R97.20 Elevated prostate specific antigen [PSA]
CPT/HCPCS: 78306; A9503

== ENCOUNTER → 2023-01-08 | Outpatient (CLI) | payer MEDICARE, SELFPAY ==
--- NOTE | 2023-01-08 14:50 | CT_ITS ---
EXAM: CT ABDOMEN AND PELVIS WITH INTRAVENOUS CONTRAST CLINICAL INDICATION: MALIGNANT NEOPLASM OF PROSTATE TECHNIQUE: Helically acquired images were obtained of the abdomen and pelvis with intravenous contrast. This CT exam was performed using one or more of the following dose reduction techniques: automated exposure control, adjustment of the mA and/or kV according to patient size, and/or use of iterative reconstruction technique. CONTRAST: IV 100mL Isovue-[id number] COMPARISON: No relevant prior studies available. 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 No cardiomegaly. No significant pericardial effusion. ABDOMEN: LIVER: Unremarkable. Homogeneous. No focal mass. GALLBLADDER AND BILE DUCTS: There are gallstones present but no inflammation. No gallbladder distention or wall edema. No intra- or extrahepatic biliary ductal dilation. PANCREAS: Unremarkable. No focal cystic or solid mass. SPLEEN: There are small splenic granulomas. ADRENALS: There is a 2.0 x 2.0 cm low-density mass right adrenal gland which may represent an adenoma. KIDNEYS AND URETERS: Unremarkable. Normal renal size and position. No hydronephrosis. STOMACH AND BOWEL: There is sigmoid diverticulosis with no evidence of diverticulitis. No stomach or bowel distention. PELVIS: APPENDIX: No evidence of acute appendicitis. BLADDER: Unremarkable. REPRODUCTIVE: Patient is status post prostatectomy. There are several seeds within the pelvis. ABDOMEN and PELVIS: INTRAPERITONEAL SPACE: Unremarkable. No ascites or other fluid collection. No free air. BONES/JOINTS: There are areas of sclerosis seen in the lumbar spine which may represent developing metastatic disease. There are also mildly increased density in the right inferior pubic ramus. 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 SOFT TISSUES: Unremarkable. No discrete abdominal or pelvic wall hernia. VASCULATURE: Unremarkable. Abdominal aorta is non-dilated. LYMPH NODES: Unremarkable. No enlarged lymph nodes. CT/Abdomen/Pelvis W IV Cont ONLY IMPRESSION: 1. Mild increased density within several lumbar vertebral bodies in right inferior pubic ramus which may represent metastatic disease. 2. 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 3. No acute abnormalities in the abdomen or pelvis. Electronically Signed: Efrain Dial MD at 22:14 EDT ,
== END | disposition home or self-care (01) ==
LOC: CT 14:49
PROVIDERS: PCP Physician Assistant; Referring Provider Urology; Visit Provider Urology
DX: C61 Malignant neoplasm of prostate (principal)
CPT/HCPCS: 74177; Q9967; A4216

== ENCOUNTER → 2023-04-09 | Outpatient (CLI) | payer MEDICARE, SELFPAY ==
--- OUTSIDE RECORDS SUMMARY | 2023-04-09 07:10 | XMS RPT_ITS | CCD ---
Author Name Unknown Address [address] [place] [address] Organization [facility] Care Team Providers Care Director Camp Name Role Phone Danna Mota Unavailable Margie REGAN, Diana Lipscomb Unavailable Unavailable Danna Mota Unavailable Chapito Das PA-C Primary Care Provider [phone] Chapito Das PA-C Primary Care Provider [phone] Chapito Das PA-C Primary Care Provider [phone] Chapito DAS Referring Unavailable Chapito DAS Primary Care Unavailable Chapito DAS Attending Unavailable Chapito DAS Primary Care Unavailable Chapito DAS Referring Unavailable Chpaito DAS Primary Care Unavailable Allergies Allergy Classification Reported Allergen(s) Allergy Type Date of Onset Reaction(s) Facility (20 sources) erythromycin; Translations: [ERYTHROMYCIN] drug allergy 1 [facility] Work Phone: [phone] (20 sources) minocycline; Translations: [MINOCYCLINE] drug allergy 6 GI Upset, Vomiting [facility] Work Phone: (6 sources) penicillin drug allergy 1 Hives [facility] Work Phone: (6 sources) Sulfonamides (Antibiotic) drug allergy 1 [facility] Work Phone: (3 sources) Penicillins; Translations: [PENICILLINS] Drug Allergy 5 [facility] Work Phone: (20 sources) Sulfonamides (Antibiotic); Translations: [SULFA (SULFONAMIDE ANTIBIOTICS)] Propensity to adverse reactions 5 [facility] (20 sources) Penicillins Drug Allergy 5 [facility] Work Phone: Medications Current Medications Medication Drug Class(es) Dates Sig (Normalized) Sig (Original) benzonatate 100 mg oral capsule (2 sources) Non-narcotic Antitussive Start: 06-17-2021 End: 06-24-2021 take 1 capsule by mouth twice daily as needed for cough benzonatate (TESSALON PERLES) 100 mg capsule Indications: Suspected COVID-19 virus infection Take 1 capsule by mouth twice daily as needed for cough for up to 7 days. 14 capsule 0 06/17/2021 06/24/2021 Active Completed/Discontinued Medications Medication Drug Class(es) Dates Sig (Normalized) Sig (Original) acetaminophen / HYDROcodone (6 sources) Opioid Agonist Start: 01-31-2011 End: 03-23-2014 VICODIN 5-500 MG TABS one to two tabs four times a day as needed for pain HYDROCODONE-ACETAMI NOPHEN [id number] Nadine Garnica PA-C Problems Active Problems Problem Classification Problem Date Documented Date Episodic/Chronic Acute myocardial infarction (3 sources) Non-ST elevation (NSTEMI) myocardial infarction; Translations: [Non-ST elevation (NSTEMI) myocardial infarction] Onset: 07-26-2010 07-26-2010 Chronic Cancer of prostate (20 sources) Malignant tumor of prostate; Translations: [Malignant neoplasm of prostate] Onset: 03-05-2005 03-05-2005 Chronic Cardiac dysrhythmias (14 sources) Paroxysmal ventricular tachycardia; Translations: [Paroxysmal ventricular tachycardia] Onset: 07-26-2010 07-26-2010 Chronic Chronic kidney disease (20 sources) Chronic kidney disease stage 3; Translations: [Chronic kidney disease, stage 3, mod decreased GFR] Onset: 02-17-2016 02-17-2016 Chronic Chronic obstructive pulmonary disease and bronchiectasis (20 sources) Chronic obstructive lung disease; 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] Onset: 07-26-2010 07-26-2010 Chronic Coagulation and hemorrhagic disorders (11 sources) Platelet count below reference range; Translations: [Thrombocytopenia, unspecified] Onset: 12-18-2022 12-18-2022 Chronic Complication of device; implant or graft (3 sources) Atherosclerosis of coronary artery bypass graft(s) without angina pectoris; Translations: [Atherosclerosis of coronary artery bypass graft(s) without angina pectoris] Onset: 07-26-2010 09-28-2015 Chronic Coronary atherosclerosis and other heart disease (20 sources) Old myocardial infarction; Translations: [Atherosclerotic heart disease of [place] coronary artery without angina pectoris] Onset: 07-26-2010 08-06-2016 Chronic Disorders of lipid metabolism (20 sources) Hyperlipidemia; Translations: [Mixed hyperlipidemia] Onset: 07-26-2010 07-26-2010 Chronic Diverticulosis and diverticulitis (20 sources) Diverticulitis of large intestine; Translations: [Diverticulitis of large intestine without perforation or abscess without bleeding] Onset: 10-30-2011 07-05-2017 Chronic Immunizations and screening for infectious disease (1 source) Suspected disease caused by 2019-nCoV; Translations: [Suspected COVID-19 virus infection] Episodic Other inflammatory condition of skin (20 sources) Rosacea; Translations: [Rosacea, unspecified] Onset: 01-19-2016 01-19-2016 Chronic Other non-traumatic joint disorders (1 source) Pain in left shoulder; Translations: [Pain in joint, shoulder region] 01-01-2023 Episodic Other nutritional; endocrine; and metabolic disorders (5 sources) Body mass index (BMI) 34.0-34.9, adult; Translations: [Body mass index (BMI) 33.0-33.9, adult] Onset: 09-17-2013 03-29-2015 Chronic Other nutritional; endocrine; and metabolic disorders (1 source) Body mass index (BMI) 33.0-33.9, adult; Translations: [Body mass index (BMI) 33.0-33.9, adult] Onset: 09-17-2013 09-17-2013 Chronic Other nutritional; endocrine; and metabolic disorders (20 sources) Obese class I; Translations: [Obesity, unspecified] Onset: 07-05-2017 07-05-2017 Chronic Unclassified (2 sources) Placement of stent in coronary artery ; Translations: [Presence of other cardiac implants and grafts] Onset: 07-26-2010 08-06-2016 Unclassified (1 source) 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; Translations: [Presence of aortocoronary bypass graft] Onset: 07-26-2010 08-06-2016 Past or Other Problems Problem Classification Problem Date Documented Da te Episodic/Chronic Conditions associated with dizziness or vertigo (6 sources) Dizziness; Translations: [Dizziness and giddiness] Onset: 07-26-2010 08-06-2016 Episodic Coronary atherosclerosis and other heart disease (8 sources) Presence of aortocoronary bypass graft; Translations: [Coronary angioplasty status] Onset: 07-26-2010 07-26-2010 Episodic Fluid and electrolyte disorders (20 sources) Hyponatremia; Translations: [Hypo-osmolality and hyponatremia] Onset: 01-19-2016 01-19-2016 Episodic Malaise and fatigue (1 source) Other fatigue; Translations: [Fatigue, unspecified type] Onset: 12-18-2022 Episodic Neoplasms of unspecified nature or uncertain behavior (6 sources) Neoplasm of unspecified behavior of bone, soft tissue, and skin; Translations: [Neoplasm of unspecified behavior of bone, soft tissue, and skin] Onset: 12-28-2010 12-31-2010 Episodic Other aftercare (7 sources) Other 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 renewal 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 (current) drug therapy; Translations: [Long-term (current) use of other medications] Onset: 06-06-2011 Resolved: 09-27-2014 09-27-2014 Episodic Other and unspecified benign neoplasm (3 sources) Other benign neoplasm of skin of unspecified eyelid, including canthus; Translations: [Other benign neoplasm of skin of unspecified eyelid, including canthus] Onset: 12-28-2010 02-11-2011 Episodic Other circulatory disease (6 sources) Abnormal result of cardiovascular function study, unspecified; Translations: [Abnormal result of cardiovascular function study, unspecified] Onset: 07-26-2010 Resolved: 08-06-2016 08-06-2016 Episodic Other non-epithelial cancer of skin (20 sources) Basal cell carcinoma of skin of unspecified parts of face; Translations: [Basal cell carcinoma of face] Onset: 12-28-2010 02-11-2011 Episodic Other screening for suspected conditions (not mental disorders or infectious disease) (20 sources) Raised prostate specific antigen; Translations: [Elevated prostate specific antigen [PSA]] Onset: 01-19-2016 03-14-2021 Episodic Syncope (3 sources) Near syncope; Translations: [Syncope and collapse] Onset: 08-06-2016 08-06-2016 Episodic Unclassified (4 sources) Preoperative cardiovascular examination ; Translations: [Encounter for preprocedural cardiovascular examination] Onset: 07-26-2010 Resolved: 08-06-2016 08-06-2016 Unclassified (2 sources) Long-term drug therapy; Translations: [Long-term (current) use of other medications] Onset: 06-06-2011 Resolved: 09-27-2014 06-06-2011 Results Test Name Value Interpretation Reference Range Facil ity Vital Signs Date Time Vital Sign Value Performing Clinician Lorraine colbert 06-17-2021 09:47-0400 Body temperature 97.9 [degF] Arianne Praisler-Wood [employer] Work Phone: [facility] 06-17-2021 09:47-0400 Body weight 107.86 kg Arianne Praisler-Wood [employer] Work Phone: [facility] 06-17-2021 09:47-0400 Diastolic blood pressure 72 mm[Hg] Arianne Praisler-Wood [employer] Work Phone: [facility] 06-17-2021 09:47-0400 Heart rate 75 /min Arianne Praisler-Wood [employer] Work Phone: [facility] 06-17-2021 09:47-0400 Respiratory rate 18 /min Arianne Praisler-Wood [employer] Work Phone: [facility] 06-17-2021 09:47-0400 SaO2% (BldA) [Mass fraction] 98 % Arianne Praisler-Wood [employer] Work Phone: [facility] 06-17-2021 09:47-0400 Systolic blood pressure 122 mm[Hg] Arianne Praisler-Wood [employer] Work Phone: [facility] 08-07-2016 16:35-0400 BMI (Body Mass Index) 34.09 kg/m2 Danna [facility] Work Phone: 08-07-2016 16:35-0400 Body weight 118.84 kg D[facility] Work Phone: 08-07-2016 16:35-0400 BP Diastolic 60 mm[Hg] Danna [facility] Work Phone: 08-07-2016 16:35-0400 BP Systolic 120 mm[Hg] Danna [facility] Work Phone: 08-07-2016 16:35-0400 Height 186.69 cm [facility] Work Phone: 08-07-2016 16:35-0400 Pulse (Heart Rate) 68 /min [facility] Work Phone: 08-07-2016 16:35-0400 Respiratory Rate 20 /min [facility] Work Phone: 08-07-2016 16:35-0400 Weight 118.84 kg Danna [facility] Work Phone: 04-10-2016 13:33-0500 BMI (Body Mass Index) 34.2 kg/m2 Diana [facility] Work Phone: 04-10-2016 13:33-0500 BP Diastolic 78 mm[Hg] Diana Hanson RN [facility] Work Phone: 04-10-2016 13:33-0500 BP Systolic 130 mm[Hg] Diana Hanson RN [facility] Work Phone: 04-10-2016 13:33-0500 BSA (Body Surface Area) 2.43 m2 Diana Hanson RN [facility] Work Phone: 04-10-2016 13:33-0500 Pulse (Heart Rate) 60 /min Diana Hanson RN [facility] Work Phone: 04-10-2016 13:33-0500 Pulse Oximetry 98 % Diana Hanson RN [facility] Work Phone: 04-10-2016 13:33-0500 Weight 119.21 kg Diana Hanson RN [facility] Work Phone: 10-04-2015 09:20-0400 Respiratory Rate 20 /min Diana Hanson RN [facility] Work Phone: 03-29-2015 09:17-0500 Heart rate 61 /min Dannasarah Mota [facility] Work Phone: 09-17-2013 10:02-0400 Height 186.69 cm Diana Hanson RN [facility] Work Phone: 03-08-2011 14:27-0500 Body Temperature 97.7 [degF] Diana Hanson RN [facility] Work Phone: Encounters Encounter Date Encounter Type Care Provider Facility Start: 02-14-2023 Luann erwin PA-C Work Phone: [facility] Procedures Date Procedure Procedure Detail Performing Clinician Start: 12-19-2022 C-reactive protein [facility] Start: 12-19-2022 Erythrocyte sedimentation rate [facility] Provider Start: 12-19-2022 Lipid panel [facility] Start: 12-19-2022 PSA screening [facility] Start: 08-07-2016 End: 08-07-2016 Documentation of current medications Danna Mota Start: 04-10-2016 End: 04-10-2016 Dietary management education, guidance, and counseling Danna Mota Start: 04-10-2016 End: 04-10-2016 JOHANNY Garnica PA-C Work Phone: Start: 04-10-2016 End: 04-10-2016 Follow Up Appt 6 months Nadine Garnica PA-C Work Phone: Start: 10-04-2015 End: 10-04-2015 Follow Up Appt 6 months Chapito Franklin Start: 10-04-2015 End: 10-04-2015 MACHELLE Antonio MD Start: 03-29-2015 End: 03-29-2015 JOHANNY Garnica PA-C Work Phone: Start: 03-29-2015 End: 03-29-2015 Follow Up Appt 6 months Nadine Garnica PA-C Work Phone: Start: 03-29-2015 End: 03-29-2015 Lipid panel [AGGREGATE] Nadine Garnica PA-C Work Phone: Start: 09-28-2014 End: 09-29-2014 Documentation of current medications Jesús Antonio MD Start: 09-28-2014 End: 09-28-2014 Follow Up Appt 6 months Chapito Franklin Start: 09-28-2014 End: 09-28-2014 MACHELLE Antonio MD Start: 09-24-2014 End: 09-24-2014 *Hepatic Function Panel Nadine Garnica PA-C Work Phone: Start: 09-24-2014 End: 09-24-2014 Lipid panel [AGGREGATE] Nadine Garnica PA-C Work Phone: Start: 03-23-2014 End: 03-23-2014 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 Nadine Garnica PA-C Work Phone: Start: 03-23-2014 End: 03-23-2014 Follow Up Appt 6 months Nadine Garnica PA-C Work Phone: Start: 03-18-2014 End: 03-19-2014 *Hepatic Function Panel Nadine Garnica PA-C Work Phone: Start: 03-18-2014 End: 03-19-2014 Lipid panel [AGGREGATE] Nadine Garnica PA-C Work Phone: Start: 09-17-2013 End: 03-03-2014 Follow Up Appt 6 months Chapito Franklin Start: 09-17-2013 End: 03-03-2014 MACHELLE Antonio MD Start: 09-14-2013 End: 09-15-2013 *Hepatic Function Panel Nadine Garnica PA-C Work Phone: Start: 09-14-2013 End: 09-15-2013 Lipid panel [AGGREGATE] Nadine Garnica PA-C Work Phone: Start: 03-04-2013 End: 03-04-2013 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 FILLER Nadine Garnica PA-C Work Phone: Start: 03-04-2013 End: 03-04-2013 Follow Up Appt 6 months Nadine Garnica PA-C Work Phone: Start: 09-02-2012 End: 03-02-2013 *Hepatic Function Panel Chapito Franklin Start: 09-02-2012 End: 09-02-2012 Electrocardiogram, complete Jesús Antonio MD Start: 09-02-2012 End: 09-02-2012 Follow Up Appt 6 months Chapito Franklin Start: 09-02-2012 End: 03-02-2013 Lipid panel [AGGREGATE] Chapito Franklin Start: 09-02-2012 End: 09-02-2012 MM Jesús Antonio MD Start: 02-19-2012 End: 02-19-2012 Follow Up Appt 6 months Chapito Franklin Start: 12-07-2011 End: 02-23-2013 *Hepatic Function Panel Chapito Franklin Start: 12-07-2011 End: 02-23-2013 Lipid panel [AGGREGATE] Chapito Franklin Start: 06-05-2011 End: 06-05-2011 Follow Up Appt 6 months Chapito Franklin Start: 07-26-2010 Placement of stent in coronary artery Mutilple coronary stents Danna Mota Start: 07-26-2010 End: 08-06-2016 Preoperative cardiovascular examination PRE-OPERATIVE CARDIOVASCULAR EXAMINATION Danna Mota Plan of Treatment Date Care Activity Detail Author Start: 01-05-2025 DIABETES SCREEN DIABETES SCREEN [facility] Start: 01-05-2025 Diabetes Screening Diabetes Screenin g [facility] Start: 12-20-2023 Hepatitis B surface antibody level LDL Cholesterol [facility] Start: 12-13-2023 DIABETES SCREEN DIABETES SCREEN [facility] Start: 01-09-2023 COVID-19 VACCINE (4 - Booster for Pfizer series) COVID-19 VACCINE (4 - Booster for Pfizer series) [facility] Immunizations Immunization Date Immunization Notes Care Provider Trace waller 12-28-2021 influenza, high-dose , quadrivalent vaccine (FLUZONE HIGH DOSE QUADRIVALENT) China Hauser [facility] 12-28-2021 influenza virus vacc ine, unspecified formulation China Dawnjose daniel [facility] 12-30-2020 influenza, high-dose , quadrivalent vaccine (FLUZONE HIGH DOSE QUADRIVALENT) China Hauser [facility] 04-08-2020 COVID-19 vaccine, ag e 12+ yr (PFIZER-BIONTEmpathy Co - PURPLE TOP) Arianne Flannery APRN.CNP Work Phone: [facility] 12-13-2019 influenza, high-dose , quadrivalent vaccine (FLUZONE HIGH DOSE QUADRIVALENT) Arianne Flannery APRN.BONDING AGENT Work Phone: [facility] 01-04-2019 influenza, high dose seasonal, preservative-free Arianne Flannery APRN.BONDING AGENT Work Phone: [facility] 01-04-2018 influenza, high dose seasonal, preservative-free Arianne Flannery APRN.BONDING AGENT Work Phone: [facility] 07-04-2017 pneumococcal polysaccharide vaccine, 23 valent Arianne Flannery APRN.BONDING AGENT Work Phone: [facility] 11-29-2015 influenza, injectabl e, quadrivalent, contains preservative Arianne Flannery APRN.BONDING AGENT Work Phone: [facility] Work Phone: 12-03-2012 pneumococcal conjuga te vaccine, 13 valent Arianne Flannery APRN.BONDING AGENT Work Phone: [facility] Work Phone: Payers Date Payer Category Payer Unknown [employer]IM[employer]IME [employer] POS [id number] 2014-Present [phone] [address] [place] [address] O [id number] 2014 Unknown PRIMETIME [employer] POS [id number] 2014-Present [phone] [place] [id number] O [id number] 2014 Unknown [id number] Social History Date Type Detail Facility Start: 07-04-2017 End: 01-09-2022 Tobacco smoking status NHIS Ex-smoker [facility] End: 09-15-2004 History of tobacco use Current smoker [facility] End: 09-15-2004 History of tobacco use Cigarette Smoker [facility] Start: 06-17-2021 End: 12-18-2022 Alcohol intake Current non-drinker of alcohol (finding) [facility] Start: 1935 Sex Assigned At Not on file [facility] Start: 06-07-2021 End: 01-09-2022 Exposure to SARS-CoV-2 (event) Not sure [facility] Start: 07-04-2017 End: 12-18-2022 Cigarettes smoked current (pack per day) - Reported 1 [facility] Work Phone: Start: 07-04-2017 End: 01-09-2022 Tobacco use and exposure Smokeless tobacco non-user [facility] Start: 01-09-2022 End: 12-18-2022 Tobacco use panel [facility] Work Phone: Adult Depression Screening Assessment 0 [facility] Work Phone: Clinical Notes 10-31-2017 to 02-14-2023 Telephone Encounter - Sudha Nash LPN - 02/14/2023 10:04 AM ESTTelephone Encounter - Keysha Pagan Ma - 01/29/2023 5:14 PM ESTTelephone Encounter - Chapito Das PA-C - 01/29/2023 4:20 PM EST Note Date & Type Note Facility 02-14-2023 Miscellaneous Notes Patient has been identified by name and date of : Spouse phones for refill(s): Requested Prescriptions Pending Prescriptions Disp Refills simvastatin (ZOCOR) 40 mg tablet 90 tablet 3 Sig: Take 1 tablet by mouth once daily. Date of last office visit in primary care: 12/18/2022 Date of next office visit in primary care: Visit date not found Last 2 Encounter Wt Readings: Date: Wt: 12/18/2022 100.7 kg (222 lb) 01/09/2022 104.3 kg (230 lb) Previous labs/tests for medication: Cholesterol: Triglycerides (mg/dL) Date Value 06/07/2018 177 HDL Cholesterol Date Value 12/19/2022 58 12/12/2020 64 mg/dL LDL Cholesterol Date Value 12/19/2022 59 12/12/2020 93 mg/dL ALT (U/L) Date Value 01/05/2022 14 12/12/2020 15 Non HDL Cholesterol (mg/dL) Date Value 01/05/2022 125 12/12/2020 112 Please advise. Thank you. Sudha Nash LPN. documented in this encounter [facility] 01-29-2023 Miscellaneous Notes notified The following approved medication requests have been transmitted electronically. Requested Prescriptions Signed Prescriptions Disp Refills doxycycline (VIBRA-TABS) 100 mg tablet 20 tablet 0 Sig: Take 1 tablet by mouth two times a day for 10 days. Authorizing Provider: Chapito DAS PA-C of pt called to reports pt's rosacea on nose if red swollen and sore. Requesting Medication below. Patient has been identified by name and date of : Yes, Provider Donavan Das, PAC Date 01/29/23 Time 1:36 pm. Spouse phones for refill(s): Requested Prescriptions Pending Prescriptions Disp Refills doxycycline (VIBRA-TABS) 100 mg tablet 20 tablet 0 Sig: Take 1 tablet by mouth two times a day for 10 days. Date of last office visit in primary care: 12/18/2022 Date of next office visit in primary care: Visit date not found Last 2 Encounter Wt Readings: Date: Wt: 12/18/2022 100.7 kg (222 lb) 01/09/2022 104.3 kg (230 lb) Previous labs/tests for medication: Not applicable Please advise. Thank you. Kenya Kirkland LPN. documented in this encounter [facility] 01-10-2023 Miscellaneous Notes See patient update from urology. Scan on 01/10/2023 2:22 PM by ProviderLaron PA-C: Consultation - documented in this encounter [facility] 01-03-2023 Miscellaneous Notes Routed to you as DELVIN. You did NOT order this scan. Scan on 01/02/2023 9:33 PM by Laron Franks PA-C: PET documented in this encounter [facility] 01-02-2023 Miscellaneous Notes Patients informed and verbalized understanding. Will fax order to [facility] per pt's request. Laurie Elizabeth The xray I am looking for was left shoulder, apparently I neglected to order it. My apologies. CXR was clear. Please send to [facility] \ Telephone on 01/01/23 XR SHOULDER GENERAL 3V OR MORE AP/TRUE AP/OTHER LEFT Acute pain of left shoulder (primary encounter diagnosis) Thanks, Donavan Das PA-C Read spouse note and she advised xray was 12/18 reviewed epic and 12/19 xray is scanned in that pcp ordered. Please review Deja Mosqueda Ma Please retrieve records from [facility] as I can't find them in [facility] or scanned on chart. Thanks, Donavan Das PA-C Spoke with patient's . Given results from other TE. She states that patient has good days where he is eating and up and walking around. Other days like today he isn't feeling well and not eating. No diarrhea. No fatigue, but has been feeling down due to dx and worry of expenses having all the testing done. She states he did have shoulder xrays completed on December 18 at [facility] with 2 views. See TE from this morning on results for ultrasounds. I cannot find shoulder xray report in scanned docs or on [facility]. Thanks, Donavan Das PA-C Pt's spouse Marybeth asking for shoulder xray results from 12/19/22 done at [facility]. Results are in epic. Marybeth also reports pt had 3 USs done was [facility] 12/27/22. Called med recs & requested those results, she will fax them over. Diana Rice LPN documented in this encounter [facility] 01-01-2023 Miscellaneous Notes Patient's notified. Verbalized understanding. 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 Please send copies to creative/art director at [facility]. 2. Renal US was normal. Unfortunately is was not done for residual (urine remaining after void) which is what I had requested. He will be seeing Dr. Grove and can review urine retnetion with him. How has he been the last week? Any appetite?. Diarrhea?, change in fatigue? documented in this encounter [facility] 12-27-2022 Miscellaneous Notes Completed form faxed back a. Drug: [employer] b. Set[employer] In[employer] Heating Equipment name:[employer] c. Submitted by via d. Date: Kellie received [employer] forms for [employer] PAP. Kellie will take forms to [facility] for prescription completion. Once complete forms may be faxed to #[phone]. documented in this encounter [facility] 12-24-[address] Grove's office and spoke to Laurie, who reports they received referral and patient is on the schedule for 12-31-22. Please let Dr. Rosa's office know he had labs done at [facility] PSA 83.80. Also has refused to follow up on repeated recommendations. Thanks, Donavan Das PA-C Pt's calls to report that pt has decided he does want to stay with Dr. Grove. reports that last night pt's bladder was full and he could not urinate. reports pt said he worked through it. is going to call [place] to set up an appt. Would like test results that pt is having on faxed to Dr. Grove. Kelsey Loyola LPN Reason for Consultation: changing provider to [facility]/ Formerly Dr. [place]. Doesn't want to return. S/p radical porstatectomy. PSA from 20.14 to 83.80 in 7 months CRP 28.70, ESR 53 Sudden dramatic increase in PSA. Has been slowly increasing and patient has refused f/u with urology, stating he would want treatment anyway Has had recent URI sx with diarrhea and fatigue. Recheck PSA Chapito Das PA-C documented in this encounter [facility] 10-09-2023 Miscellaneous Notes Spoke with pts. , she states pt. Wanted to see a different urologist, she knows nothing about seeing Oncology and refused to schedule. In looking at [facility] notes Under assessment /Plan 4. Malignant neoplasm of prostate (HCC) - ICD9: 185, ICD10: C61 Patient's PSA has climbed significantly over the last few years. Patient is stopping Dr. Grove, identifying him as a smart-dread. He does not really want to pursue another urologist or continue down the road of checking to see whether or not he has prostate cancer as he has no intention of doing any treatment. We will need records from Dr. Grove office, please have Donavan reach out to discuss referral with pt. Danya Van LPN Please review to schedule patient with Oncology: DX: Prostate Cancer Insurance: [employer] H[employer] POS Referred By: Keaton Rojas. [facility] Per referral patient is changing provider to [facility]/ Formerly Dr. [place] Martin [place]. Doesn't want to return. S/p radical porstatectomy. Sudden dramatic increase in PSA. Has been slowly increasing and patient has refused treatment as told to wait until PSA>20. documented in this encounter [facility] 12-21-2022 Miscellaneous Notes Sw received message from spouse that she looked through [employer] letter and found application on back of letter. Spouse notes that she will work on completing application with spouse and then drop off to [facility]. Sw will then take application to [facility] for prescription completion. Spouse notes that [employer] sent patient a letter regarding his Spiriva inhaler through their PAP. Spouse notes that she is not sure as to what the letter is referring to regarding renewing patient assistance application. Spouse reports that she and patient have been to the office frequently. Sw noted that spouse could ask staff to make copy of letter and ask it to be placed in mailbox. Then Sw can take a look at letter and let spouse know how to proceed with renewing patient assistance for Spiriva. Spouse reports that she will do that. Sw tried call again to patient spouse. No answer,Sw left message that she will try call another time to discuss prescription assistance needs. Sw received message from patient spouse requesting call back to discuss Spiriva Handi[employer]er[employer] application. Spouse notes that it is about time to complete new yearly application. Sw called and left message for spouse that Sw will try call another time. documented in this encounter [facility] 12-21-2022 Miscellaneous Notes notified of results. Provider called out of office today. Patient is scheduled for all three US's on 12/27/22 at [facility]. Scheduled pt for 12/28/22 at 11:40 am. Please let them know Labs were in good range except one of three liver enzymes was elevated. ALP was 304 Albumen (protein) mildly low- likely from loss of appetite and intake Sodium level moderately low 129 with other electrolytes normal CRP 28.70 very high ESR 53 very high PSA 83.80 Very high Mild anemia hgb 11.4 Please have them schedule to come in tomorrow to review testing and next steps for work up. Thanks, Donavan Das PA-C Results in office from [facility]. Will place on desk for review. documented in this encounter [facility] 12-18-2022 Note HNO ID: [id number] Author: Chapito Das PA-C Service: ? Author Type: Physician Billposting Supervisor Type: Progress Notes Filed: 12/18/2022 2:39 PM Note Text: 87 year old male with c/o left shoulder pain. Pain trying to lift overhead. 2. Fatigue, states started in October 16, after pressure washed driveway. Worked for 8 hours with intermittent rest. 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 Hasn't been hungry but has had URI improving over last 2 weeks. No nausea, vomiting, heart burn, BM once a week, brown, lifelong pattern. No fever or chills in last few weeks. Cat of 20 years 2 weeks ago. 15 lbs weight loss in last year. No pain other than shoulder 3. Feels not emptying out . Urinates small amounts, goes back and lays down, then has to go again. Usually gets up three times at night. HISTORIES No family history on file. PAST MEDICAL HISTORY Diagnosis Date BPPV (benign paroxysmal positional vertigo) 01/19/2016 COPD (chronic obstructive pulmonary disease) ([facility]) Diverticulosis Dizziness 10/31/2017 10/27/17 [facility] ED: acute generalized weakness and non-vertiginous dizziness, CBC, electrolyes, troponin WNL. BUN 33, creat 1. EKG SB 52. CXR WNL. C T brain WO: chronic age related white matter changes. 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 Skin cancer BCC removed left face PAST SURGICAL HISTORY Procedure Laterality Date COLONOSCOPY W/BIOPSY SINGLE/MULTIPLE 12/13/11 CORONARY ARTERY BYP W/VEIN AND ARTERY GRAFT 3 VEIN 2004 CABG, three grafts LEFT HEART CATH,PERCUTANEOUS Cardiac cath, L heart PAST SURGICAL HISTORY OF 1997 prostatectomy PAST SURGICAL HISTORY OF cyst and chip left elbow PAST SURGICAL HISTORY OF 2010 BCC removed from head RIGHT HEART CATHETERIZATION Cardiac cath, R heart RPR 1ST INGUN HRNA AGE 5 YRS/> REDUCIBLE 2003 Hernia repair, inguinal RPR UMBILICAL HRNA 5 YRS/> REDUCIBLE 2004 Hernia repair, umbilical >5yr TRANSCATH STENT ADDN VESSEL,PERCUT 2006 Transcath stent addn vessel percut TRANSCATH STENT INIT VESSEL,PERCUT 2006 Transcath stent init vessel percut Social History Tobacco Use Smoking status: Former Packs/day: 1.00 Years: 55.00 Additional pack years: 0.00 Total pack years: 55.00 Types: Cigarettes Quit date: 09/15/2004 Years since quittin.2 Smokeless tobacco: Never Substance Use Topics Alcohol use: No ACTIVE PROBLEM LIST Malignant Neoplasm of Prostate (Hcc) Diverticulitis Large Intestine Hyponatremia Elevated Psa, Between 10 and Less Than 20 Ng/Ml Low Testosterone Rosacea Atherosclerotic Heart Disease of [place] Coronary Artery With Angina Pectoris (Hcc) Chronic Kidney Disease, Stage 3, Mod Decreased Gfr (Hcc) Copd With Chronic Bronchitis Mixed Hyperlipidemia Low Vitamin D Level Bcc (Basal Cell Carcinoma), Face Obesity, Class I, Bmi 30-34.9 Current Outpatient Medications Medication Sig Dispense Refill simvastatin (ZOCOR) 40 mg tablet Take 1 tablet by mouth once daily. 90 tablet 3 tiotropium (SPIRIVA WITH HANDIHALER) 18 mcg inhalation capsule Inhale 1 capsule as instructed once daily. 90 capsule 3 cholecalciferol, Vitamin D3, (VITAMIN D3) 1,250 mcg (50,000 unit) cap capsule Take 1 capsule by mouth one time a week. 12 capsule 3 Cetirizine 10 mg cap Take by mouth. MULTIVITAMIN ORAL Take by mouth. metoprolol succinate(TOPROL XL 25 MG 24 HR TAB) take 1 tablet daily 0 ASPIRIN 325 MG TAB Take one(1) tablet daily. 0 clopidogrel bisulfate(PLAVIX 75 MG TAB) Take one(1) tablet daily. 0 B COMPLETE TAB Take one(1) tablet daily. 0 No current facility-administered medications for this visit. Spirometry Never done Advance Directive Discussion due on 03/18/2022 Depression Assessment due on 03/18/2022 Influenza Vaccine(1) due on 11/16/2022 LDL Cholesterol due on 01/05/2023 EXAM: BP 122/68 Pulse 68 Temp 36.6 ?C (97.8 ?F) (Left Tympanic) Resp 18 Wt 100.7 kg (222 lb) SpO2 95% BMI 30.40 kg/m? Pleasant well-appearing elderly male, in no acute distress but less energetic than usual. Alert and oriented all spheres. Normal affect and cognition. Speech normal. No deficits to learning or comprehension. Skin warm, dry, pink to lips and nailbeds. Normal turgor. Respirations regular and unlabored. HEENT: NCAT. No scleral icterus or conjunctival injection. TM's clear. Nose with rosacea mildly, and oropharynx free from injection or lesion. Oral membranes moist and pink. No cervical lymph nodes. Thyroid non-tender, no masses, or enlargement. Carotids pulses 2+/4+ without bruits. No JVD with HOB at 30 degrees. Neck is supple, range of motion expected for age. Chest clear to auscultation percussion, no dullness at bases. Cardiac exam regular rate and rhythm without murmur or gallop. Slow even pulse. Abdomen (more content not included)... [facility] 05-24-2022 Miscellaneous Notes Pts called and is notified of providers results and instructions. She voices understanding and will let her know. Will fax labs over to Dr Grove. Gloria Carlson RN He needs to follow up with Dr. Grove r/t PSA > 20 Please have him call to schedule. Thanks, Donavan Das PA-C Pts was calling in for Pts PSA results. Let her know they were 20.14, and that I'd let the provider know. Please call and advise. documented in this encounter [facility] 05-02-2022 Miscellaneous Notes The following approved medication requests have been transmitted electronically. Requested Prescriptions Signed Prescriptions Disp Refills doxycycline (VIBRA-TABS) 100 mg tablet 20 tablet 0 Sig: Take 1 tablet by mouth twice daily for 10 days. Authorizing Provider: Chapito DAS Keaton Das, PA-C documented in this encounter [facility] 04-27-2022 Miscellaneous Notes Telephone on 04/27/22 PSA/PROSTSPECAG DIAG Donavan Das PA-C Spouse is calling for a PSA order to complete in July and would like order marked routine for ins to pay. documented in this encounter [facility] 04-04-2022 Miscellaneous Notes Sw received message from patient spouse noting that she was able to speak with [facility] and that patient's Spiriva inhaler has been filled and that patient should be receiving inhaler in next couple of days. Spouse notes that [employer] rep notes that company did send out approval letter to patient home for this year. No other needs at this time. Sw [facility] Waited on hold extended time, no answer. Sw will try call again later. Sw received message from patient spouse that she has been trying to reach [employer] in regards to requesting a refill on patient spiriva handihaler and has not been able to reach anyone. Spouse notes that patient never received letter from [facility] in regards to approval. Spouse states that she was told by phone that patient was approved. Sw tried call to [employer] and waited on hold extended time no answer. Sw spoke with spouse and both will keep trying call to check on status of refill option for spiriva. documented in this encounter [facility] 02-19-2022 Miscellaneous Notes Last OV: 01/09/22 Last labs: 01/05/22 Patient has been identified by name and date of : Yes Requested Prescriptions Pending Prescriptions Disp Refills simvastatin (ZOCOR) 40 mg tablet 90 tablet 3 Sig: Take 1 tablet by mouth once daily. RX INSTRUCTIONS: Patient aware RX will be sent to pharmacy. No need to notify patient. Kelsey Loyola LPN documented in this encounter [facility] 02-15-2022 Miscellaneous Notes Kellie spoke with patient spouse and she notes that they received approval for patient Spiriva[employer] PAP. documented in this encounter [facility] 01-16-2022 History of Presen t illness Narrative a. Drug:Spiriva Handihaler b. [employer] name:[employer] c. Submitted byTara via fax d. Date:01/17/22 Patient stopped in to bring [employer] application for spiriva handihaler. Patient also signed HIPPA form for patient assistance. Kellie will take forms to [facility] office for prescription completion. Forms can then be faxed to [employer] fax. [phone]. documented in this encounter [facility] 01-16-2022 Miscellaneous Notes Kellie spoke with patient and he will come in with spouse when she brings in [employer]work-Spiriva. Patient has to sign HIPPA form now to attach to application. Sw will have patient sign at visit. Kellie spoke with patient spouse and she will bring in [employer] paperwork for patients spiriva tomorrow 01/16 @11am. documented in this encounter [facility] 01-08-2022 Miscellaneous Notes Lab faxed to [facility]. Patient has appt tomorrow and labs will be reviewed then. ----- Message from Chapito Das PA-C sent at 01/06/2022 11:03 AM EDT ----- Please advise labs overall look good except sodium and chloride are mildly low without a clear cause. This sometimes is a medication side effect but none of his medications really should cause this. Sometimes it can be related to dehydration know his other numbers do not indicate he is dehydrated. I would recommend that we recheck sometime in the next 4 weeks. During that time I would really like him to push fluids to make sure he is getting plenty of water and noncaffeinated nonalcoholic beverages. PSA has continued to rise, now at 18.39, please send lab results to Dr. Grove at [facility]. We will review these labs at his visit and place orders for the next check. Best. Chapito Das PA-C documented in this encounter [facility] 06-18-2021 Miscellaneous Notes Patient notified.Joanie Viveros LPN ----- Message from Arianne Flannery APRN.CNP sent at 06/18/2021 8:11 AM EDT ----- Please advise patient of negative COVID and influenza test. Arianne Flannery APRN.CNP documented in this encounter [facility] 06-17-2021 Instructions Juno Hernadez - 06/17/2021 9:55 AM EDT Beginning Home Isolation Isolation is used to separate people infected with SARS-CoV-2, the virus that causes COVID-19, from people who are not infected. People who are in isolation should stay home until it s safe for them to be around others. In the home, anyone sick or infected should separate themselves from others by staying in a specific sick room or area and using a separate bathroom (if available). Isolation or Quarantine: What's the difference? Quarantine keeps someone who might have been exposed to the virus away from others. Isolation keeps someone who is infected with the virus away from others, even in their home. Who needs to isolate People who have COVID-19 People who have symptoms of COVID-19 and are able to recover at home People who have no symptoms (are asymptomatic) but have tested positive for infection with SARS-CoV-2 Steps to take Stay home except to get medical care Monitor your symptoms. Stay in a separate room from other household members, if possible Use a separate bathroom, if possible Avoid contact with other members of the household and pets Don t share personal household items, like cups, towels, and utensils Wear a mask when around other people, if you are able to When to seek emergency medical attention Look for emergency warning signs* for COVID-19. If someone is showing any of these signs, seek emergency medical care immediately: Trouble breathing Persistent pain or pressure in the chest New confusion Inability to wake or stay awake Bluish lips or face *This list is not all possible symptoms. Please call your medical provider for any other symptoms that are severe or concerning to you. Call 911 or call ahead to your local emergency facility: Notify the lithographing machine operator that you are seeking care for someone who has or may have COVID-19. Ending Home Isolation - When you can be around others after you had or likely had COVID-19 When you can be around others after you had or likely had COVID-19 If You Test Positive for COVID-19 (Isolation) Everyone, regardless of vaccination status: 1. Stay home for 5 days. Note: Day 0 is your first day of symptoms or the date of collection of a positive viral test if no symptoms. Day 1 is the first full day after symptoms developed or test specimen was collected. 2. If you have no symptoms or your symptoms are resolving after 5 days, you can leave your house. 3. Continue to wear a mask around others for 5 additional days. If you have a fever, continue to stay home until your fever resolves, even if it is longer than 5 days. If You Were Exposed to Someone with COVID-19 (Quarantine) If you: 1. Have been boosted OR 2. Completed the primary series of Pfizer or Moderna vaccine within the last 6 months OR 3. Completed the primary series of J&J vaccine within the last 2 months THEN: 1. Wear a mask around others for 10 days. 2. Test on day 5, if possible. If you develop symptoms get a test and stay home. If You Were Exposed to Someone with COVID-19 (Quarantine) If you: 1. Completed the primary series of Pfizer or Moderna vaccine over 6 months ago and are not boosted OR 2. Completed the primary series of J&J over 2 months ago and are not boosted OR 3. Are unvaccinated THEN: 1. Stay home for 5 days. After that continue to wear a mask around others for 5 additional days. 2. If you can't quarantine you must wear a mask for 10 days. 3. Test on day 5 if possible. If you develop symptoms get a test and stay home. I had COVID-19 or I tested positive for COVID-19 and I have a weakened immune system If you have a weakened immune system (immunocompromised) due to a health condition or medication, you might need to stay home and isolate longer than 10 days. Talk to your healthcare provider for more information. Your doctor may work with an infectious disease expert at your local health department to determine when you can be around others. How to Manage Common Symptoms Associated with COVID for Adults Fever- Fever is a temperature over 100.4 F and can occur when the body is fighting an infection. To help treat a fever: Drink plenty of fluids and stay well hydrated. Eat small amounts of easy to digest food. Rest. Your body needs rest to recover, but getting up and moving around the house frequently is a good idea. You should try to continue doing your normal daily activities (bathing, toileting, grooming, cooking), though you will probably feel tired, and need to rest often. Avoid any heavy activity or exercise, as this will increase your body temperature. Dress in light clothing and stay covered in a light sheet. Keep the room temperature cool. Take a slightly warm (not cold or cool) bath, or apply damp washcloths to the forehead and wrists. Cough- Cough is a common symptom associated with COVID and can be bothersome. To help treat a cough: Stay well hydrated. Try warm water or tea with lemon and/or honey to help soothe the cough. Use a humidifier to add moisture to the air. Try a product with menthol, like a cough drop or a rub for your chest such as Vicks, which can help reduce cough. Try cough drops. Avoid smoking and other strong odors or perfumes. Try breathing exercises to keep your lungs open and clear. Take a big deep breath through your nose and hold for 5 seconds before slowly releasing. Repeat frequently, while you are awake. Congestion- Runny nose or nasal congestion can occur with COVID. Treatment can help relieve symptoms: Try OTC nasal saline spray, or nasal saline rinse to relieve mucus congestion. Nasal strips can help keep nasal passages open, to increase airflow. Elevating your head with an extra pillow in bed can help reduce congestion. Using a humidifier can increase moisture in the air, and make breathing easier. Sore Throat- Another common symptom with COVID, can be managed at home by: Stay well hydrated. Gargle with salt water mix teaspoon salt with 1 cup of warm water and gargle. This helps to loosen mucus in the back of the throat and may reduce discomfort. Try ice chips, popsicles or lozenges to soothe the throat. Nausea/Vomiting/Diarrhea- These are common symptoms, and staying hydrated is most important. If you are nauseous or vomiting, start with small sips of water every 10-15 minutes and increase as tolerated. You can try sucking an ice cube too. If tolerating, you can try pedialyte or Gatorade, or flat sprite or kimi-debora. Start slowly and increase as you are able to. Instead of meals, try smaller, more frequent snacks. Try eating bland foods like crackers, toast, rice, and applesauce. Avoid spicy, greasy or fried foods and dairy containing foods. Even if you aren't feeling hungry due to lack of smell or taste, it is important to try to take in some food when you are able. After drinking and eating, rest in an upright position for up to two hours as needed to help decrease nauseous feelings. Try closing your eyes, avoid moving and watching TV. Avoid strong odors that can make you feel more nauseated. When to seek emergency medical attention Look for emergency warning signs for COVID-19. If having any of these symptoms, seek emergency medical care immediately: Trouble breathing Persistent pain or pressure in the chest New confusion Inability to wake or stay awake Bluish lips or face *This list is not all possible symptoms. Please call your medical provider for any other symptoms that are severe or concerning to you. documented in this encounter [facility] 06-17-2021 History of Presen t illness Narrative SUBJECTIVE Julio Garcia SR is a 85 year old male who presents with 1 day of symptoms that are worsening. PMH significant for COPD. Symptoms include: Fever (?100.4F): No or Chills: No Cough: Yes Shortness of breath: No or Difficulty breathing: No Fatigue: Yes Muscle aches: No Headache: No New loss of smell or taste: No Sore throat: No Nasal congestion: No or Rhinorrhea: Yes Nausea: No or Vomiting: No Diarrhea: No OTC meds/remedies that patient has tried: Mucinex DM and OTC cough syrup. High risk category assessment Age > 60 years old Coronary artery disease Exposures: Sick contacts? No Family or close contacts with confirmed/probable COVID-19 in last 14 days? No He reports that he quit smoking about 16 years ago. His smoking use included cigarettes. He has a 55.00 pack-year smoking history. He has never used smokeless tobacco. OBJECTIVE 06/17/21 0947 BP: 122/72 Pulse: 75 Resp: 18 Temp: 36.6 C (97.9 F) TempSrc: Tympanic SpO2: 98% Weight: 107.9 kg (237 lb 12.8 oz) PAST MEDICAL HISTORY Diagnosis Date BPPV (benign paroxysmal positional vertigo) 01/19/2016 COPD (chronic obstructive pulmonary disease) (HCC) Diverticulosis Dizziness 10/31/2017 10/27/17 [facility] ED: acute generalized weakness and non-vertiginous dizziness, CBC, electrolyes, troponin WNL. BUN 33, creat 1. EKG SB 52. CXR WNL. C T brain WO: chronic age related white matter changes. 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 Skin cancer BCC removed left face PAST SURGICAL HISTORY Procedure Laterality Date COLONOSCOPY W/BIOPSY SINGLE/MULTIPLE 12/13/11 CORONARY ARTERY BYP W/VEIN & ARTERY GRAFT 3 VEIN 2004 CABG, three grafts LEFT HEART CATH,PERCUTANEOUS Cardiac cath, L heart PAST SURGICAL HISTORY OF 1997 prostatectomy PAST SURGICAL HISTORY OF cyst and chip left elbow PAST SURGICAL HISTORY OF 2010 BCC removed from head RIGHT HEART CATHETERIZATION Cardiac cath, R heart RPR 1ST INGUN HRNA AGE 5 YRS/> REDUCIBLE 2003 Hernia repair, inguinal RPR UMBILICAL HRNA 5 YRS/> REDUCIBLE 2003 Hernia repair, umbilical >5yr TRANSCATH STENT ADDN VESSEL,PERCUT 2006 Transcath stent addn vessel percut TRANSCATH STENT INIT VESSEL,PERCUT 2005 Transcath stent init vessel percut ALLERGIES Erythromycin, Minocycline, Penicillins, and Sulfa (Sulfonamide Antibiotics) MEDICATIONS simvastatin (ZOCOR) 40 mg tablet Take 1 tablet by mouth once daily. tiotropium (SPIRIVA WITH HANDIHALER) 18 mcg inhalation capsule Inhale 1 capsule as instructed once daily. cholecalciferol, Vitamin D3, (VITAMIN D3) 1,250 mcg (50,000 unit) cap capsule Take 1 capsule by mouth one time a week. Cetirizine (ZYRTEC) 10 mg cap Take by mouth. MULTIVITAMIN ORAL Take by mouth. ivermectin (SOOLANTRA) 1 % crea Apply 1 application to affected area once daily. metoprolol succinate(TOPROL XL 25 MG 24 HR TAB) take 1 tablet daily ASPIRIN 325 MG TAB Take one(1) tablet daily. clopidogrel bisulfate(PLAVIX 75 MG TAB) Take one(1) tablet daily. B COMPLETE TAB Take one(1) tablet daily. benzonatate (TESSALON PERLES) 100 mg capsule Take 1 capsule by mouth twice daily as needed for cough for up to 7 days. No family history on file. Social History Tobacco Use Smoking status: Former Smoker Packs/day: 1.00 Years: 55.00 Pack years: 55.00 Types: Cigarettes Quit date: 09/15/2004 Years since quittin.7 Smokeless tobacco: Never Used Substance Use Topics Alcohol use: No Drug use: Not on file Physical Exam Vitals reviewed. Constitutional: General: He is not in acute distress. Appearance: Normal appearance. HENT: Head: Normocephalic and atraumatic. Nose: Congestion present. Eyes: Extraocular Movements: Extraocular movements intact. Conjunctiva/sclera: Conjunctivae normal. Pupils: Pupils are equal, round, and reactive to light. Cardiovascular: Rate and Rhythm: Normal rate. Rhythm irregular. Pulses: Normal pulses. Heart sounds: Normal heart sounds. No murmur heard. Pulmonary: Effort: Pulmonary effort is normal. No respiratory distress. Breath sounds: No stridor. Wheezing present. No rhonchi. Musculoskeletal: Cervical back: Normal range of motion and neck supple. Skin: General: Skin is warm and dry. Capillary Refill: Capillary refill takes less than 2 seconds. Coloration: Skin is not jaundiced. Findings: Bruising present. Neurological: General: No focal deficit present. Mental Status: He is alert and oriented to person, place, and time. Mental status is at baseline. Psychiatric: Mood and Affect: Mood normal. Behavior: Behavior normal. ASSESSMENT/PLAN (Z20.822) Suspected COVID-19 virus infection (primary encounter diagnosis) ASSESSMENT/PLAN: 1. Suspected COVID-19 virus infection - ICD9: V01.79, ICD10: Z20.822 (primary diagnosis) - COVID WITH FLUA+B, ROUTINE - BENZONATATE 100 MG CAPSULE 2. COPD with chronic bronchitis (HCC) - ICD9: 491.20, ICD10: J44.9 - continue to use inhaler as prescribed. - Meets symptom-based criteria for testing and is high risk. - COVID swab collected at time of office visit - Instructed to isolate pending test results - Discussed symptom monitoring and supportive care - Red flag symptoms requiring follow up discussed This patient encounter involved the screening or treatment of novel coronavirus infection (COVID-19). Juno Hernadez RN TEACHING PROVIDER (Physician/PA/FIRE SERVICES PLUMBER) NOTE OF PERSONAL INVOLVEMENT IN CARE: I have personally seen and examined the patient and performed the medical decision-making components. I have reviewed the Advanced Practice Registered Nurse (FIRE SERVICES PLUMBER) Student's documentation and verified the findings in the note as written. Any additions or changes are noted in bold/italics. Signature: Arianne Flannery Date: 06/17/2021 Time: 10:10 AM documented in this encounter [facility] documented as of this encounter (statuses as of 06/17/2021) [facility] History of Past illness Narrative* Problem Noted Date Resolved Date Dizziness 10/31/2017 12/26/2020 Overview: 10/27/17 [facility] ED: acute generalized weakness and non-vertiginous dizziness, CBC, electrolyes, troponin WNL. BUN 33, creat 1. EKG SB 52. CXR WNL. C T brain WO: chronic age related white matter changes. 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 BUN 33, creat 1. EKG SB 52. CXR WNL. C T brain WO: chronic age related white matter changes. 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 BUN 33, creat 1. EKG SB 52. CXR WNL. C T brain WO: chronic age related white matter changes. 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 BUN 33, creat 1. EKG SB 52. CXR WNL. C T brain WO: chronic age related white matter changes. 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 BUN 33, creat 1. EKG SB 52. CXR WNL. C T brain WO: chronic age related white matter changes. 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 BUN 33, creat 1. EKG SB 52. CXR WNL. C T brain WO: chronic age related white matter changes. 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 BUN 33, creat 1. EKG SB 52. CXR WNL. C T brain WO: chronic age related white matter changes. 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 BUN 33, creat 1. EKG SB 52. CXR WNL. C T brain WO: chronic age related white matter changes. 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 BUN 33, creat 1. EKG SB 52. CXR WNL. C T brain WO: chronic age related white matter changes. 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 BUN 33, creat 1. EKG SB 52. CXR WNL. C T brain WO: chronic age related white matter changes. 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 BUN 33, creat 1. EKG SB 52. CXR WNL. C T brain WO: chronic age related white matter changes. 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 BUN 33, creat 1. EKG SB 52. CXR WNL. C T brain WO: chronic age related white matter changes. 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 BUN 33, creat 1. EKG SB 52. CXR WNL. C T brain WO: chronic age related white matter changes. 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 BUN 33, creat 1. EKG SB 52. CXR WNL. C T brain WO: chronic age related white matter changes. 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 BUN 33, creat 1. EKG SB 52. CXR WNL. C T brain WO: chronic age related white matter changes. 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 BUN 33, creat 1. EKG SB 52. CXR WNL. C T brain WO: chronic age related white matter changes. 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 BUN 33, creat 1. EKG SB 52. CXR WNL. C T brain WO: chronic age related white matter changes. 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 BUN 33, creat 1. EKG SB 52. CXR WNL. C T brain WO: chronic age related white matter changes. 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 BUN 33, creat 1. EKG SB 52. CXR WNL. C T brain WO: chronic age related white matter changes. 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 documented in this encounter [facility] note* Diagnosis Elevated PSA, between 10 and less than 20 ng/ml- Primary Elevated prostate specific antigen (PSA) documented in this encounter [facility] note* Diagnosis Prostate cancer (HCC)- Primary Malignant neoplasm of prostate documented in this encounter [facility] note* Diagnosis Acute pain of left shoulder- Primary documented in this encounter [facility] for referral (narrative)* Diagnostic Procedure Only (Routine) - Pending Review Specialty Diagnoses / Procedures Referred By Michael lubin Referred To Contact XR IMAGING Diagnoses Acute pain of left shoulder Procedures XR SHOULDER GENERAL 3V OR MORE AP/TRUE AP/OTHER LEFT RADEX SHOULDER COMPLETE MINIMUM 2 VIEWS Chapito Das PA-C [address] [place] [address] [place] [address] Referral ID Status Reason Start Date Expiration Date Visits Requested Visits Authorized [id number] Pending Review Auto-Generat ed Referral 01/31/2024 1 1 [facility] Health Concerns Infection Onset Date Last Indicated Resolved Time COVID-19 Rule-Out 06/17/2021 06/17/2021 Infection Onset Date Last Indicated Resolved Time COVID-19 Rule-Out 06/17/2021 06/17/2021 06/18/2021 7:24 AM EDT Advance Directives No Advanced Directives Records FoundDocuments on File Type Date Recorded 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 anation Advance Directive(s) 04/30/2018 11:25 AM Documents on File Type Date Recorded 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 Advance Directive(s) 04/30/2018 11:25 AM Reason for Referral Specialty Diagnoses / Procedures Referred By Michael lubin Referred To Contact Oncology Diagnoses Prostate cancer (HCC) Procedures CONSULT TO ONCOLOGY OFFICE/OUTPATIENT [facility] MDM 60-74 MINUTES Chapito Das PA-C [address] [place] [address] Referral ID Status Reason Start Date Expiration Date Visits Requested Visits Authorized [id number] Pending Review PCP Requested Referral 12/24/2022 12/24/2023 1 1 Specialty Diagnoses / Procedures Referred By Contjennifer t Referred To Contact Urology Diagnoses Prostate cancer (HCC) Procedures CONSULT TO UROLOGY OFFICE/OUTPATIENT [facility] MDM 60-74 MINUTES Chapito Das PA-C [address] [place] [address] Referral ID Status Reason Start Date Expiration Date Visits Requested Visits Authorized [id number] Pending Review PCP Requested Referral 12/24/2022 12/24/2023 1 1 Summary Purpose Family History No Family History Records Found Additional Source Comments Source Comments (unrecognize d section and content) In the event this informatio n is protected by the Federal Confidentiality of Alcohol and Drug Abuse Patient Records regulations: The Federal rules restrict any use of the information to criminally investigate or prosecute any alcohol or drug abuse patient.[facility] the event this information is protected by the Federal Confidentiality of Alcohol and Drug Abuse Patient Records regulations: The Federal rules restrict any use of the information to criminally investigate or prosecute any alcohol or drug abuse patient.[facility] the event this information is protected by the Federal Confidentiality of Alcohol and Drug Abuse Patient Records regulations: The Federal rules restrict any use of the information to criminally investigate or prosecute any alcohol or drug abuse patient.[facility] the event this information is protected by the Federal Confidentiality of Alcohol and Drug Abuse Patient Records regulations: The Federal rules restrict any use of the information to criminally investigate or prosecute any alcohol or drug abuse patient.[facility] the event this information is protected by the Federal Confidentiality of Alcohol and Drug Abuse Patient Records regulations: The Federal rules restrict any use of the information to criminally investigate or prosecute any alcohol or drug abuse patient.[facility] the event this information is protected by the Federal Confidentiality of Alcohol and Drug Abuse Patient Records regulations: The Federal rules restrict any use of the information to criminally investigate or prosecute any alcohol or drug abuse patient.[facility] the event this information is protected by the Federal Confidentiality of Alcohol and Drug Abuse Patient Records regulations: The Federal rules restrict any use of the information to criminally investigate or prosecute any alcohol or drug abuse patient.[facility] the event this information is protected by the Federal Confidentiality of Alcohol and Drug Abuse Patient Records regulations: The Federal rules restrict any use of the information to criminally investigate or prosecute any alcohol or drug abuse patient.[facility] System[facility] the event this information is protected by the Federal Confidentiality of Alcohol and Drug Abuse Patient Records regulations: The Federal rules restrict any use of the information to criminally investigate or prosecute any alcohol or drug abuse patient.[facility] System[facility] the event this information is protected by the Federal Confidentiality of Alcohol and Drug Abuse Patient Records regulations: The Federal rules restrict any use of the information to criminally investigate or prosecute any alcohol or drug abuse patient.[facility] System[facility] the event this information is protected by the Federal Confidentiality of Alcohol and Drug Abuse Patient Records regulations: The Federal rules restrict any use of the information to criminally investigate or prosecute any alcohol or drug abuse patient.[facility] System[facility] the event this information is protected by the Federal Confidentiality of Alcohol and Drug Abuse Patient Records regulations: The Federal rules restrict any use of the information to criminally investigate or prosecute any alcohol or drug abuse patient.[facility] System[facility] the event this information is protected by the Federal Confidentiality of Alcohol and Drug Abuse Patient Records regulations: The Federal rules restrict any use of the information to criminally investigate or prosecute any alcohol or drug abuse patient.[facility] System[facility] the event this information is protected by the Federal Confidentiality of Alcohol and Drug Abuse Patient Records regulations: The Federal rules restrict any use of the information to criminally investigate or prosecute any alcohol or drug abuse patient.[facility] System[facility] the event this information is protected by the Federal Confidentiality of Alcohol and Drug Abuse Patient Records regulations: The Federal rules restrict any use of the information to criminally investigate or prosecute any alcohol or drug abuse patient.[facility] System[facility] the event this information is protected by the Federal Confidentiality of Alcohol and Drug Abuse Patient Records regulations: The Federal rules restrict any use of the information to criminally investigate or prosecute any alcohol or drug abuse patient.[facility] System[facility] the event this information is protected by the Federal Confidentiality of Alcohol and Drug Abuse Patient Records regulations: The Federal rules restrict any use of the information to criminally investigate or prosecute any alcohol or drug abuse patient.[facility] System[facility] the event this information is protected by the Federal Confidentiality of Alcohol and Drug Abuse Patient Records regulations: The Federal rules restrict any use of the information to criminally investigate or prosecute any alcohol or drug abuse patient.[facility] System[facility] the event this information is protected by the Federal Confidentiality of Alcohol and Drug Abuse Patient Records regulations: The Federal rules restrict any use of the information to criminally investigate or prosecute any alcohol or drug abuse patient.[facility] SystemIn the event this information is protected by the Federal Confidentiality of Alcohol and Drug Abuse Patient Records regulations: The Federal rules restrict any use of the information to criminally investigate or prosecute any alcohol or drug abuse patient.[facility] SystemIn the event this information is protected by the Federal Confidentiality of Alcohol and Drug Abuse Patient Records regulations: The Federal rules restrict any use of the information to criminally investigate or prosecute any alcohol or drug abuse patient.[facility] SystemIn the event this information is protected by the Federal Confidentiality of Alcohol and Drug Abuse Patient Records regulations: The Federal rules restrict any use of the information to criminally investigate or prosecute any alcohol or drug abuse patient.[facility] Reason for Visit (unrecogniz ed section and content) Reason Comments Results Reason Comments Patient Assistance Reason Onset Date Comments Refill Request 02/19/2022 Reason Comments prescription assistance Reason Comments Orders Reason Comments Rash Reason Comments New Patient Reason Comments Results Shoulder XRay Reason Comments FYI-No Action Needed Reason Comments Results Bone scan as FYI Reason Comments Rosacea flare Reason Onset Date Comments Refill Request 02/14/2023 Care Teams (unrecognized sec tion and content) Director Camp Relationship Specialty Start Date End Date Chapito Das PA-C [address] [place] [address] PCP - General Family Practice 01/18/16 Director Camp Relationship Specialty Start Date End Date Chapito Das PA-C [address] [place] [address] PCP - General Family Medicine 01/18/16 Director Camp Relationship Specialty Start Date End Date Chapito Das PA-C [address] [place] [address] PCP - General Family Medicine 01/18/16 Director Camp Relationship Specialty Start Date End Date Chapito Das PA-C [address] [facility] [place] [address] PCP - General Family Medicine 01/18/16 Director Camp Relationship Specialty Start Date End Date Chapito Das PA-C [address] [place] [address] PCP - General Family Medicine 01/18/16 Director Camp Relationship Specialty Start Date End Date Chapito Das PA-C [address] [facility] [place] [address] PCP - General Family Medicine 01/18/16 Director Camp Relationship Specialty Start Date End Date Chapito Das PA-C [address] [place] [address] PCP - General Family Medicine 01/18/16 Director Camp Relationship Specialty Start Date End Date Chapito Das PA-C [address] [place] [address] PCP - General Family Medicine 01/18/16 Director Camp Relationship Specialty Start Date End Date Chapito Das PA-C [address] [place] [address] PCP - General Family Medicine 01/18/16 Director Camp Relationship Specialty Start Date End Date Chapito Das PA-C [address] [place] [address] PCP - General Family Medicine 01/18/16 Director Camp Relationship Specialty Start Date End Date Chapito Das PA-C [address] [place] [address] PCP - General Family Medicine 01/18/16 Director Camp Relationship Specialty Start Date End Date Chapito Das PA-C [address] [place] [address] PCP - General Family Medicine 01/18/16 Director Camp Relationship Specialty Start Date End Date Chapito Das PA-C [address] [place] [address] PCP - General Family Medicine 01/18/16 (unrecognized sect ion and content) No Status Records Found INFORMATION SOURCE (unrecogn ized section and content) FOR RECORDS PERTAINING TO PATIENTS WHO ARE OR HAVE BEEN ENROLLED IN A CHEMICAL DEPENDENCY/SUBSTANCEABUSE PROGRAM, SOME INFORMATION MAY BE OMITTED. This clinical summary was aggregated from multiple sources. Caution should be exercised in using it in the provision of clinical care. This summary normalizes information from multiple sources, and as a consequence, information in this document may materially change the coding, format and clinical context of patient data. In addition, data may be omitted in some cases. CLINICAL DECISIONS SHOULD BE BASED ON THE PRIMARY CLINICAL RECORDS. [facility]. provides no warranty or guarantee of the accuracy or completeness of information in this document.
[2023-04-09 08:04] LABS: PSA,Total- Diagnostic 1.48 ng/mL (0.0-4.0)
== END | disposition home or self-care (01) ==
LOC: LAB 07:07
PROVIDERS: PCP Physician Assistant; Referring Provider Urology; Visit Provider Urology
DX: C61 Malignant neoplasm of prostate (principal)
CPT/HCPCS: 36415; 84153

== ENCOUNTER → 2023-07-19 | Outpatient (CLI) | payer MEDICARE, SELFPAY | END | disposition home or self-care (01) | LOC: LAB 07:14 | PROVIDERS: PCP Physician Assistant; Referring Provider Urology; Visit Provider Urology | DX: C61 Malignant neoplasm of prostate (principal) | CPT/HCPCS: 36415; 84153 ==

== ENCOUNTER → 2023-07-23 | Outpatient (CLI) | payer MEDICARE, SELFPAY ==
--- NOTE | 2023-07-23 16:05 | RAD_ITS ---
STUDY: X-RAY - LEFT ANKLE REASON FOR EXAM: Male, 88 years old. ACUTE PAIN TECHNIQUE: 3 views of the left ankle. COMPARISON: None. FINDINGS: Normal visualized distal tibia and fibula. Normal medial and lateral malleoli. 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 Intact visualized talus and calcaneus. There is a posterior calcaneal tuberosity spur. The visualized subtalar, talonavicular, calcaneocuboid and tarsal articulations are normal. On the oblique view, there is suggestion of a nondisplaced transverse fracture through the fourth proximal metatarsal. There are mild atherosclerotic calcifications. RAD/Ankle min 3 Views IMPRESSION: Mild tibiotalar arthrosis. Posterior calcaneal tuberosity spur. Possible nondisplaced transverse fracture through the fourth proximal metatarsal. Correlate clinically. Electronically Signed: Kp Barlow MD at 8:55 EDT ,
== END | disposition home or self-care (01) ==
LOC: RAD 15:59
PROVIDERS: PCP Physician Assistant; Referring Provider Physician Assistant; Visit Provider Physician Assistant
DX: M25.572 Pain in left ankle and joints of left foot (principal)
CPT/HCPCS: 73610

== ENCOUNTER → 2023-08-06 | Outpatient (CLI) | payer MEDICARE, SELFPAY ==
--- NOTE | 2023-08-06 16:43 | CT_ITS ---
STUDY: CT LEFT FOOT REASON FOR EXAM: Male, 88 years old. Foot fracture. RADIATION DOSAGE (If Supplied By Facility): CTDIvol = ( 15.35 ) mGy, DLP = ( 407.49 ) mGycm TECHNIQUE: Thin section transaxial imaging of the left foot was obtained, with sagittal and coronal reconstructed images. Individualized dose optimization techniques were used for this CT. COMPARISON: Left ankle radiographs dated 07/23/2023. FINDINGS: There is an old healed fracture deformity of the posterior malleolus of the distal tibia (sagittal series 601 images 22-25). There are small smooth ossific densities inferior to the medial malleolus (sagittal series 601 images 17-20), probably the sequelae of old avulsion injuries. 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 Intact talus, calcaneus, and tarsal bones. There are plantar and posterior calcaneal spurs. Normal visualized subtalar, talonavicular, and calcaneocuboid joints. There is mild degenerative arthrosis at the navicular-cuneiform articulations. There is degenerative arthrosis of the second through fifth tarsometatarsal joints. Normal metatarsi. Normal metatarsophalangeal joint of the great toe. Normal tibial and fibular sesamoid bones. Normal interphalangeal joint of the great toe. Normal phalanges of the great toe. Normal second through fifth MTP joints. Normal interphalangeal joints and phalanges of the lesser toes. There is no demonstrated acute fracture. The soft tissue structures are unremarkable. CT/Extremity Lower without Contra IMPRESSION: Old healed fracture deformity of the posterior malleolus of the distal tibia. Small smooth ossific densities inferior to the medial malleolus, probably the sequelae of old avulsion injuries. 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 Mild degenerative arthrosis at the navicular-cuneiform articulations. Degenerative arthrosis of the second through fifth tarsometatarsal joints. Electronically Signed: Kp Barlow MD at 8:31 EDT ,
== END | disposition home or self-care (01) ==
LOC: CT 16:42
PROVIDERS: PCP Physician Assistant; Referring Provider Physician Assistant; Visit Provider Physician Assistant
DX: S92.902G Unspecified fracture of left foot, subsequent encounter for fracture with delayed healing (principal); X58.XXXD Exposure to other specified factors, subsequent encounter
CPT/HCPCS: 73700

== ENCOUNTER 2023-08-17 18:56 | Inpatient (IN) | payer MEDICARE, SELFPAY ==
[2023-08-17 18:58] VITALS: BP 108/51; PULSE 85; RESP 18; TEMP 36.9; O2SAT 95
--- NOTE | 2023-08-17 19:07 | EKG12_ITS ---
Test Reason : FALL Blood Pressure : / mmHG Vent. Rate : 081 BPM Atrial Rate : 081 BPM P-R Int : 184 ms QRS Dur : 084 ms QT Int : 376 ms P-R-T Axes : 073 -01 067 degrees QTc Int : 436 ms Sinus rhythm with marked sinus arrhythmia Nonspecific ST abnormality Abnormal ECG Confirmed by HUGO BOLTON, LENNIE ([id number]), news video editor DEANGELO READ ([id number]) on 08/19/2023 6:53:31 AM Referred By: Confirmed By:LENNIE ARIAS MD
--- NOTE | 2023-08-17 19:07 | CT_ITS ---
INDICATION: Head trauma, altered mental status, headache EXAMINATION: CT BRAIN - CT Head or Brain W/O Contrast Injection TECHNIQUE: Multiple axial images were obtained of the head without intravenous contrast. A radiation dose optimization technique was used for this scan. IV Contrast dosage and agent: None. COMPARISON: 10/27/2017 FINDINGS: BRAIN PARENCHYMA: No intra- or extra-axial hemorrhage. No evidence of acute infarct. No intracranial mass or mass effect. There is preservation of the plummer/white matter interface. Posterior fossa structures are unremarkable. Stable volume loss with low attenuation of the periventricular white matter typical of chronic small vessel disease. CSF SPACES: Appropriate for age. No hydrocephalus. Basal cisterns are patent. CALVARIUM, SKULL BASE, PARANASAL SINUSES AND MASTOID AIR CELLS: Clear. No acute fracture. CT/Brain/Head without Contrast IMPRESSION: Volume loss with chronic white matter changes. No acute intracranial findings. Electronically Signed: Rik Villasenor MD at 20:32 EDT ,
--- NOTE | 2023-08-17 19:09 | EX.ED.DYSGE1 ---
HPI History of Present Illness Chief Complaint: Weakness Detail of Chief Complaint: Generalized weakness, difficulty ambulating, fall, decreased intake Informant: patient, spouse/S.O. and family Onset/Context/Timing Onset: Days Context: Sudden Onset Timing: Continuous Quality: Occipital headache, decreased intake, difficulty ambulating Location: Multiple systems Current Severity: Moderate Maximum Severity: Moderate Worsened by: Nothing specific Relieved by: Nothing Associated Symptoms Associated Symptoms: Diet HPI narrative Narrative Narrative: patient is 88-year-old who is oriented but disoriented for the past 24 to 48 hours compared to baseline. Patient has history of atherosclerotic heart disease status post bypass surgery and stent placement, essential hypertension, hyperlipidemia, prostate cancer with metastasis to bone who was brought to the emergency department because of decreased p.o. intake, recent fall with head trauma complaining of headache, inability to stand up and ambulate without assistance, which is new. Patient does complain of headache which is localized to the occipital area. Double vision blurred vision loss of vision. He denies trouble with speech or swallowing. He does endorse thirst and dry mouth. He denies neck pain. He does report chest discomfort. He does report cough productive of white slime. He does and Dors shortness of breath compared to normal and with minimal activity. He denies nausea, vomiting or diarrhea. He denies abdominal pain. He does endorse decreased urine output. Denies dysuria, urgency or hematuria. The generalized weakness and difficulty ambulating has been for the past 2 days and worse since fall with head trauma. He hit his head on a cabinet in the restroom according to . Family reports that he looks pale compared to normal. 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 Atherosclerosis of coronary artery of [place] heart without angina pectoris Essential (primary) hypertension Hyperlipidemia History of bronchitis History of prostate cancer Hypothyroidism COPD (chronic obstructive pulmonary disease) Home Medications ?Medication ?Instructions ?Recorded ?Last Taken ?Type aspirin 325 mg tablet 325 mg PO QDAY 02/19/17 Unknown History multivitamin (Daily Multi-Vitamin 1 tab PO QAM 02/19/17 Unknown History tablet) cetirizine 10 mg tablet 10 mg PO DAILY PRN Allergies 10/27/17 Unknown History pyridoxine (vitamin B6) 50 mg 50 mg PO DAILY 09/30/18 Unknown History capsule nitroglycerin 0.4 mg sublingual 0.4 mg sublingual Q5-15M PRN Pain 05/24/20 Unknown Rx tablet #25 tabs cholecalciferol (vitamin D3) 50 50 mcg PO DAILY 06/08/22 Unknown History mcg (2,000 unit) capsule clopidogrel 75 mg tablet 75 mg PO DAILY #90 tabs 05/06/23 Unknown Rx enzalutamide 40 mg capsule (Xtandi) 160 mg PO DAILY 05/06/23 Unknown History leuprolide (3 month) 22.5 mg (3 22.5 mg subcut [id number] 05/06/23 Unknown History month) subcutaneous syringe ([facility]) metoprolol succinate 25 mg 25 mg PO DAILY #90 tabs 05/06/23 Unknown Rx tablet,extended release 24 hr simvastatin 40 mg tablet 40 mg PO DAILY #90 tabs 05/06/23 Unknown Rx tiotropium bromide 18 mcg capsule 1 cap inhalation DAILY 06/11/23 Unknown History with inhalation device (Spiriva with HandiHaler) Allergy/AdvReac Type Severity Reaction Status Date / Time Penicillins Allergy Hives Verified 08/17/23 18:58 Sulfa (Sulfonamide Allergy Hives Verified 08/17/23 18:58 Antibiotics) erythromycin base AdvReac Intermediate Rash Verified 08/17/23 18:58 minocycline AdvReac Nausea Verified 08/17/23 18:58 Family History Brother CAD (coronary artery disease) Myocardial infarction Sudden cardiac Diabetes Sister Breast cancer Mother Diabetes Surgical History History of colonoscopy History of left heart catheterization (07/25/07) History of coronary artery stent placement (07/16/07) H/O coronary artery bypass surgery (2004) H/O basal cell carcinoma excision History of thoracentesis left elbow bursitis History of hernia repair spermatolectomy History of radical prostatectomy Social History (Updated 08/17/23 @ 19:[address] Kingsley Mas MD) household members: spouse Smoking Status: Former smoker how long ago did patient quit smokin second hand exposure: No alcohol intake: former year quit: 2003 substance use type: does not use what type of physical activity do you participate in: walking and additional details: pulmonary rehab frequency: 1-2 times per week duration: 45-60 minutes/day seatbelt use: always do you feel safe at home: Yes ROS ROS ED Review of Systems ROS Unobtainable: due to mental status Constitutional Constitutional ED: Reports weight loss; Denies chills or fever(s) Eyes Eyes: Denies blurry vision or change in vision ENT ENT ED: Denies ear pain, rhinorrhea or sore throat Cardiovascular Cardiovascular: Reports chest pain; Denies orthopnea, palpitations, paroxysmal nocturnal dyspnea or racing heartbeat Respiratory/Chest Respiratory/Chest: Reports cough, dyspnea, dyspnea on exertion and sputum; Denies orthopnea or paroxysmal nocturnal dyspnea Gastrointestinal Gastrointestinal: Denies abdominal pain, diarrhea, melena, nausea or vomiting Genitourinary Genitourinary ED: Reports other Details: Decreased urine output. ; Denies dysuria, hematuria or urinary frequency Musculoskeletal Musculoskeletal: Reports back pain; Denies neck pain Integumentary Denies rash Neurologic Neurologic: Reports headache(s) and weakness; Denies paresthesias Endocrine Endocrinology: Reports cold intolerance Hematologic/Lymphatic Hematologic/Lymphatic: Reports systems reviewed and no addt'l complaints, except as documented and other Details: Patient is only on a baby aspirin. Dr. Antonio recently discontinued his Plavix. EXAM Physical Exam Const Vital Signs: 08/17/23 18:58 08/17/23 19:53 Temperature 98.4 F Temperature Source Temporal Pulse Rate 85 Respiratory Rate 18 Respiratory Effort Normal Non-Labored Blood Pressure 108/51 L Blood Pressure Mean 70 Pulse Ox 95 Oxygen Delivery Method Room Air Positive well nourished and well developed Constitutional Narrative: Patient appears ill, pale and is not alert. He is awake. He is disoriented to time. General Appearance ED: well developed and pallor; Negative for NAD HEENT Reports dry mucous membranes HEENT Narrative: Expiratory findings of basilar skull fracture. tenderness; Negative for trauma Mouth ED: Yes dry mucous membranes Mouth: dry mucous membranes Eyes PERRL and EOMs intact bilaterally General Eye ED: Yes pale conjunctiva; Negative for scleral icterus Neck no lymphadenopathy, supple and no JVD Chest Wall inspection of chest normal and palpation of chest normal Resp normal respiratory effort and No clear to auscultation bilaterally Auscultation: rales left base Cardio regular rate, regular rhythm, S1 normal heart sound, S2 normal heart sound and no murmurs GI normal to inspection, nondistended, normoactive bowel sounds, non-tender, non-distended and no masses; Negative for hepatosplenomegaly Palpation: soft Back/Spine no CVA tenderness Extremity Negative for normal to inspection General Extremety ED: Yes edema General Extremity: edema Neuro No oriented x3 and CN's II-XII intact bilaterally Sensorium / Orientation: Negative for alert Psych Mood & Affect: depressed Skin No skin turgor normal General Skin Exam: pallor; Negative for elasticity normal or jaundice MDM MDM MDM Narrative Medical decision making narrative: With history of head trauma headache and change in behavior will obtain CT to rule out intracranial bleed. Appropriate workup was undertaken to assess for metabolic infectious cause of his altered mental status. Also with decreased p.o. intake need to assess renal function. Patient is unable to ambulate without significant assistance. He required assistance to rise from sitting position to shuffle to the examination bed. History & Record Review Additional record(s) reviewed:: Prior inpatient record (No inpatient records noted dating back to 2015.), Prior outpatient record, Prior ED visit (Most recent ER visit was April 2020 for COVID. There are outpatient visits for chronic obstructive pulmonary disease noted. Also for coronary bypass surgery.) and Prior labs Lab Data Attestation: I reviewed the patient's lab results. Lab results narrative: White count is elevated at 13.4 thousand with no shift. Patient has anemia with normal indices. Comprehensive metabolic panel reveals a sodium of 125 and chloride 92. Most recent sodium is 128. BUN and creatinine are normal. Estimated GFR 82. Glucose is elevated 123 with normal CO2 anion gap. Alkaline phosphatase elevated 1412. This is due to his prostate cancer with metastasis to bone. Calcium is slightly low. Albumin is low as well. Calcium normal once corrected for low albumin. Labs: Laboratory Results - last 24 hr 08/17/23 08/17/23 19:30 20:15 WBC 13.4 H RBC 3.52 L Hgb 10.4 L Hct 32.0 L MCV 90.9 MCH 29.5 MCHC 32.5 RDW Std Deviation 53.0 H RDW Coeff of Seun 16.0 H Plt Count 257 MPV 8.3 Immature Gran % (Auto) 3.300 H Neut % (Auto) 62.7 Lymph % (Auto) 20.0 Schley % (Auto) 12.9 H Eos % (Auto) 0.8 Baso % (Auto) 0.3 Absolute Neuts (auto) 8.4 H Absolute Lymphs (auto) 2.67 Nucleated RBC % 0.1 Differential Comment SEE COMMENT Diff Path Review May foll Platelet Estimate ADEQUATE RBC Morphology N CHROM Anisocytosis RARE Macrocytosis RARE Sodium 125 L Potassium 4.3 Chloride 92 L Carbon Dioxide 23.0 Anion Gap 10 BUN 17 Creatinine 0.93 Estim Creat Clear Calc 67.30 Est GFR (MDRD) Af Amer 99 Est GFR (MDRD) Non-Af 82 BUN/Creatinine Ratio 18.3 Glucose 123 H Lactic Acid 1.2 Calcium 8.4 L Total Bilirubin 0.70 AST 36 ALT 15 L Alkaline Phosphatase 1412 H Total Protein 6.8 Albumin 2.6 L Globulin 4.2 Albumin/Globulin Ratio 0.6 L Urine Color Yellow Urine Clarity Sl. Cloudy Urine pH 6.5 Ur Specific [place] 1.010 Urine Protein 30 H Urine Glucose (UA) Normal Urine Ketones Negative Urine Occult Blood Negative Urine Nitrite Negative Urine Bilirubin 1 H Urine Urobilinogen 8 H Ur Leukocyte Esterase Negative Urine RBC 0 SEEN Urine WBC 0 SEEN Ur Squamous Epith Cells 0 SEEN Urine Bacteria 0 SEEN Urine Mucus 0 SEEN Urinalysis macro is positive for bilirubin and urobilinogen. Radiography Chest X-Ray - ED: 2 View (2 view x-ray interpreted by me at 2007 reveals limited inspiratory volume. Normal cardiac silhouette and size. Hilum is unremarkable. Osseous structures are unremarkable. There is no effusion or pneumothorax noted.), Read by ED Physician and - (Interpretation of chest x-ray by radiologist was reviewed. Question infiltrate versus atelectasis. This is difficult to assess. Since patient will require require admission will discuss case with hospitalist prior to starting antibiotics. He does not meet sepsis criteria at this point. 2038.) X-Ray: - Diagnostic Testing: Clinical Impression(s) from Imaging Studies Brain CT 08/17/23 19:07 IMPRESSION: Volume loss with chronic white matter changes. No acute intracranial findings. Electronically Signed: Rik Villasenor MD at 20:32 EDT , Chest X-Ray 08/17/23 19:40 IMPRESSION: Left lower lobe airspace disease may be atelectasis or pneumonia. Perhaps minimal pulmonary opacity in the right lower lobe as well. Electronically Signed: Danilo Bentley, at 20:35 EDT , CT of the head without contrast per my review at 2006 reveals no evidence of subdural hematoma, epidural hematoma, traumatic subarachnoid hemorrhage, intraparenchymal contusion or skull fracture. There is significant atrophy noted. Discharge Plan Dx/Rx/DC Orders Clinical Impression: Acute alteration in mental status, Hyperlipidemia, Essential (primary) hypertension, Atherosclerosis of coronary artery of [place] heart without angina pectoris, Primary malignant neoplasm of prostate metastatic to bone, Frequent falls, Leukocytosis, Left lower lobe pulmonary infiltrate Disposition Disposition: Acute Care [facility]
[2023-08-17] MEDS: 0.9% Normal Saline (1000mL) 1,000 ML 1000 ML IV (19:21)
[2023-08-17 19:22] VITALS: BMI 28.7
[2023-08-17 19:38] LABS: Absolute Lymphocyte Count 2.67 X10^3/uL (0.83-4.51); Absolute Neutrophil Count 8.4 X10^3/uL (2.0-7.7); Basophil# 0.04 X10^3/uL; Basophil% 0.3 % (0-1); Eosinophil# 0.11 X10^3/uL; Eosinophils% 0.8 % (0-5); Hemoglobin 10.4 g/dL (13.0-16.5); Lymphocyte # 2.67 X10^3/ul (0.83-4.51); Mean Corp Hgb Conc 32.5 g/dL (32-36); Mean Corpuscular Hgb 29.5 pg (27.0-32.0); Mean Corpuscular Volume 90.9 fL (80-94); Mean Platelet Vol. 8.3 fl (6.2-12.0); Monocyte# 1.72 X10^3/uL; Monocyte% 12.9 % (0-10); NRBC Flagged by Analyzer 0.1 % (0-5); Neutrophil # 8.38 X10^3/uL (2.7-7.7); Neutrophil % 62.7 % (47-70); POSITIVE DIFFERENTIAL YES; Platelet Count 257 K/mm3 (150-450); Red Blood Count 3.52 M/mm3 (4.6-6.2); White Blood Count 13.4 K/mm3 (4.4-11.0)
--- NOTE | 2023-08-17 19:40 | RAD_ITS ---
EXAM: XR CHEST, 2 VIEWS CLINICAL INDICATION: Productive cough, rales LLL TECHNIQUE: Frontal and lateral views of the chest. COMPARISON: No relevant prior studies available. FINDINGS: LUNGS AND PLEURAL SPACES: Left lower lobe airspace disease may be atelectasis or pneumonia. Perhaps minimal pulmonary opacity in the right lower lobe as well. Left hilar granulomas. No pneumothorax. No effusion. HEART: No significant abnormality. Cardiac silhouette not enlarged. MEDIASTINUM: Central airways and mediastinal contour are unremarkable. BONES/JOINTS: Median sternotomy. No acute fracture. SOFT TISSUES: No significant abnormality. VASCULATURE: Atherosclerosis. RAD/Chest PA and Lateral IMPRESSION: Left lower lobe airspace disease may be atelectasis or pneumonia. Perhaps minimal pulmonary opacity in the right lower lobe as well. Electronically Signed: Danilo Bentley DO at 20:35 EDT ,
[2023-08-17 20:04] LABS: Differential Indicated SCAN CRITERIA MET
[2023-08-17 20:06] LABS: Anisocytosis RARE; Macrocytosis RARE; Platelet Estimate ADEQUATE (ADEQ); Red Cell Morphology N CHROM NORMAL (NORM C&C)
[2023-08-17 20:11] LABS: ALB/GLOB Ratio 0.6 RATIO (0.9-2.4); AST(SGOT) 36 U/L (15-37); Alanine Aminotransfer ALT/SGPT 15 U/L (16-61); Albumin, Serum 2.6 g/dL (3.2-5.0); Alkaline Phosphatase 1412 U/L (45-117); Anion Gap 10 (5-15); BUN 17 mg/dL (7-18); BUN/Creat Ratio 18.3 RATIO (10-20); Calcium,Total 8.4 mg/dL (8.5-10.1); Chloride 92 mmol/L (98-107); Creatinine, Serum 0.93 mg/dL (0.70-1.30); EST Glomerular Filtration Rate 82 mL/min (>60); Est Glom Filt Rate - Afr Amer 99 mL/min (>60); Globulin 4.2 g/dL (2.2-4.2); Glucose 123 mg/dL (74-106); Potassium 4.3 mmol/L (3.5-5.1); Protein, Total 6.8 g/dL (6.4-8.2); Sodium Level 125 mmol/L (136-145)
[2023-08-17 20:20] LABS: Lactic Acid 1.2 mmol/L (0.4-1.9)
[2023-08-17 20:26] LABS: Bacteria 0 SEEN /hpf (None Seen); Mucous, Urine 0 SEEN /hpf (<or=2+); Red Blood Cells-Urine 0 SEEN /hpf (0-5); Squamous Epithelial Cells - UA 0 SEEN /hpf (0-5); White Blood Cells 0 SEEN /hpf (0-5)
[2023-08-17 20:41] LABS: Color, Urine Yellow (Yellow); Glucose, Dipstick Normal (Normal); Ketone-Dipstick Negative (Negative); Leukocyte Esterase-Dipstick Negative /ul (Negative); Nitrite-Dipstick Negative (Negative); Occult Blood-Urine Negative /ul (Negative); Protein-Dipstick 30 mg/dl (Negative); Urine Clarity Sl. Cloudy (Clear); Urine Urobilinogen 8 mg/dl (Normal); Urine pH 6.5 (5.0 - 8.0)
[2023-08-17 20:42] LABS: Urine Bilirubin Dipstick 1 mg/dL (Negative)
[2023-08-17 20:57] VITALS: BP 141/60; PULSE 76; RESP 22; TEMP 36.6; O2SAT 94
[2023-08-17] MEDS: levoFLOXacin IV 750 MG/150 ML BAG 100 MG IV (21:12)
--- NOTE | 2023-08-17 21:26 | HP.PCM.HOS_ITS ---
HPI - General General Date of Admission: 08/17/23 Date of Service: 08/17/23 Chief Complaint: Fall, fatigue, malaise, cough, LH/dizziness, N/V. HPI Narrative The patient is an 88 y/o M w/ PMHx: Former tobacco use, Metastatic Prostate CA following with Dr. Grove, HTN, HLD, CAD s/p PCI and CABG, Chronic anemia, COPD, Hypothyroidism. to the [facility] ED on 08/17/23 with history of increasing fatigue and malaise over the last 72 hours with onset of productive cough of griffith yellow- white sputum with persistent cough and mild dyspnea with exertion with unfortunately mechanical fall noted to have hit his head with EMS call at that time however he refused any transport for evaluation and on day of presentation continued to worsen with onset then nausea and a bout of emesis with poor appetite prompting family to bring him in eventually for evaluation given his significant debility. Patient reports that over the last 3 days he has had lightheadedness some send dizziness especially the activity attempts as well. He again reports poor oral intake including food and water. Workup in the ED included T98.4, heart rate 85, BP 108/51, respiratory rate 18, 95% on room air, CBC with WC 13.4, human 10.4, MCV 90.9, platelet 257 with left shift, CMP with sodium 125, chloride 92, glucose 123, hepatic profile with alk phos 1412, lactic acid 1.2, urinalysis not marked appearing, CT brain with chronic volume loss with white matter changes, no acute intracranial findings, chest x-ray with left lower lobe airspace disease with possible atelectasis versus pneumonia's and minimal opacity noted in the right lower lobe as well, EKG with sinus rhythm with no acute evidence of ischemia. In the ED patient ministered 1 L normal saline as well as Levaquin 7 and 50 mg IV x 1. [facility] Medical History COVID-19 virus detected (04/2020) Old inferior wall myocardial infarction Obesity Atherosclerosis of coronary artery bypass graft without angina pectoris Atherosclerosis of coronary artery of unga heart without angina pectoris Essential (primary) hypertension Hyperlipidemia History of bronchitis History of prostate cancer Hypothyroidism COPD (chronic obstructive pulmonary disease) Home Medications ?Medication ?Instructions ?Recorded ?Last Taken ?Type aspirin 325 mg tablet 325 mg PO QDAY 02/19/17 Unknown History multivitamin (Daily Multi-Vitamin 1 tab PO QAM 02/19/17 Unknown History tablet) cetirizine 10 mg tablet 10 mg PO DAILY PRN Allergies 10/27/17 Unknown History pyridoxine (vitamin B6) 50 mg 50 mg PO DAILY 09/30/18 Unknown History capsule nitroglycerin 0.4 mg sublingual 0.4 mg sublingual Q5-15M PRN Pain 05/24/20 Unknown Rx tablet #25 tabs cholecalciferol (vitamin D3) 50 50 mcg PO DAILY 06/08/22 Unknown History mcg (2,000 unit) capsule enzalutamide 40 mg capsule (Xtandi) 160 mg PO DAILY 05/06/23 Unknown History leuprolide (3 month) 22.5 mg (3 22.5 mg subcut [id number] 05/06/23 Unknown History month) subcutaneous syringe ([employer]) metoprolol succinate 25 mg 25 mg PO DAILY #90 tabs 05/06/23 Unknown Rx tablet,extended release 24 hr simvastatin 40 mg tablet 40 mg PO DAILY #90 tabs 05/06/23 Unknown Rx tiotropium bromide 18 mcg capsule 1 cap inhalation DAILY 06/11/23 Unknown History with inhalation device (Spiriva with HandiHaler) Allergy/AdvReac Type Severity Reaction Status Date / Time Penicillins Allergy Hives Verified 08/17/23 18:58 Sulfa (Sulfonamide Allergy Hives Verified 08/17/23 18:58 Antibiotics) erythromycin base AdvReac Intermediate Rash Verified 08/17/23 18:58 minocycline AdvReac Nausea Verified 08/17/23 18:58 Family History Brother CAD (coronary artery disease) Myocardial infarction Sudden cardiac Diabetes Sister Breast cancer Mother Diabetes Surgical History History of colonoscopy History of left heart catheterization (07/25/07) History of coronary artery stent placement (07/16/07) H/O coronary artery bypass surgery (2004) H/O basal cell carcinoma excision History of thoracentesis left elbow bursitis History of hernia repair spermatolectomy History of radical prostatectomy Social History household members: spouse Smoking Status: Former smoker how long ago did patient quit smokin second hand exposure: No alcohol intake: former year quit: 2003 substance use type: does not use what type of physical activity do you participate in: walking and additional details: pulmonary rehab frequency: 1-2 times per week duration: 45-60 minutes/day seatbelt use: always do you feel safe at home: Yes ROS ROS Narrative Admission Review of Systems: CONSTITUTIONAL: No weight loss, fever, chills, + weakness or fatigue. HEENT: + Lightheadedness, dizziness. Eyes: No visual loss, blurred vision, double vision or yellow sclerae. Ears, Nose, Throat: No hearing loss, sneezing, congestion, runny nose or sore throat. SKIN: No rash or itching, lesions, wounds. CARDIOVASCULAR: + Lightheadedness, dizziness. No chest pain, chest pressure or chest discomfort, palpitations, edema, orthopnea, syncopal events. RESPIRATORY: + Productive cough, dizziness. No wheezing, hemoptysis. GASTROINTESTINAL: + Anorexia, nausea, vomiting. No diarrhea, abdominal pain, melena, BRBPR. GENITOURINARY: No dysuria, frequency, urgency or retention. NEUROLOGICAL: + Lightheadedness, dizziness, frequent falls. No headache, syncope, paralysis, ataxia, numbness or tingling in the extremities, focal weakness, change in bowel or bladder control, seizure. MUSCULOSKELETAL: + muscle, back pain, joint pain or stiffness. HEMATOLOGIC: + Chronic anemia, easy bleeding/bruising. LYMPHATICS: No enlarged nodes. No history of splenectomy. PSYCHIATRIC: No history of depression or anxiety. ENDOCRINOLOGIC: No reports of sweating, cold or heat intolerance. No polyuria or polydipsia. ALLERGIES: + History of allergic rhinitis, hives. Vital Signs Vital Signs Vital Signs: 08/17/23 18:58 08/17/23 19:53 08/17/23 20:57 Temperature 98.4 F 97.8 F Temperature Source Temporal Pulse Rate 85 76 Respiratory Rate 18 22 H Respiratory Effort Normal Non-Labored Blood Pressure 108/51 L 141/60 H Blood Pressure Mean 70 87 Pulse Ox 95 94 Oxygen Delivery Method Room Air Weight Weight: 212 lb Body Mass Index (BMI) 28.7 Physical Exam Narrative Physical Examination: General: Awake, alert, oriented x 3 and cooperative, laying in the ED bed, ill- appearing, no acute distress Skin: Normal color, normal turgor, no icterus, no cyanosis except occasional staged ecchymoses. HEENT: AT/NC, EOMI, PERRLA, dry MM, no carotid bruits or JVD noted. Lungs: Diminished, greater bases, mildly rhonchorous, mildly increased respiratory rate but no distress, no rales or wheezing. Heart: Regular rate and rhythm; no gallop, rub audible. Abdomen: Soft, overweight, NTTP, ND, hyperactive BS, no appreciated HSM. Extremities: No cyanosis, clubbing, or edema. Neurological: Patient awake, alert, oriented as noted, cognitive function intact; pupils equally reactive to light and accommodation, cranial nerves grossly normal, moving all 4 extremities, no focal deficits, strength severely globally decreased secondary to acute presentation and underlying comorbidities. Psychiatric: Affect appears flat, fatigued, ill-appearing, no acute evidence of depressive or anxiety feelings. Results Lab / Micro Data 08/17/23 19:30 08/17/23 19:30 Labs: Laboratory Results - last 24 hr 08/17/23 19:30: WBC 13.4 H, RBC 3.52 L, Hgb 10.4 L, Hct 32.0 L, MCV 90.9, MCH 29.5, MCHC 32.5, RDW Std Deviation 53.0 H, RDW Coeff of Seun 16.0 H, Plt Count 257, MPV 8.3, Immature Gran % (Auto) 3.300 H, Neut % (Auto) 62.7, Lymph % (Auto) 20.0, Dukes % (Auto) 12.9 H, Eos % (Auto) 0.8, Baso % (Auto) 0.3, Absolute Neuts (auto) 8.4 H, Absolute Lymphs (auto) 2.67, Nucleated RBC % 0.1, Differential Comment SEE COMMENT, Diff Path Review May foll, Platelet Estimate ADEQUATE, RBC Morphology N CHROM, Anisocytosis RARE, Macrocytosis RARE, Sodium 125 L, Potassium 4.3, Chloride 92 L, Carbon Dioxide 23.0, Anion Gap 10, BUN 17, Creatinine 0.93, Estim Creat Clear Calc 67.30, Est GFR (MDRD) Af Amer 99, Est GFR (MDRD) Non-Af 82, BUN/Creatinine Ratio 18.3, Glucose 123 H, Lactic Acid 1.2, Calcium 8.4 L, Total Bilirubin 0.70, AST 36, ALT 15 L, Alkaline Phosphatase 1412 H, Total Protein 6.8, Albumin 2.6 L, Globulin 4.2, Albumin/Globulin Ratio 0.6 L 08/17/23 20:15: Urine Color Yellow, Urine Clarity Sl. Cloudy, Urine pH 6.5, Ur Specific [place] 1.010, Urine Protein 30 H, Urine Glucose (UA) Normal, Urine Ketones Negative, Urine Occult Blood Negative, Urine Nitrite Negative, Urine Bilirubin 1 H, Urine Urobilinogen 8 H, Ur Leukocyte Esterase Negative, Urine RBC 0 SEEN, Urine WBC 0 SEEN, Ur Squamous Epith Cells 0 SEEN, Urine Bacteria 0 SEEN, Urine Mucus 0 SEEN Imaging Radiology Impression Brain CT 08/17/23 19:07 IMPRESSION: Volume loss with chronic white matter changes. No acute intracranial findings. Electronically Signed: Rik Villasenor MD at 20:32 EDT , Chest X-Ray 08/17/23 19:40 IMPRESSION: Left lower lobe airspace disease may be atelectasis or pneumonia. Perhaps minimal pulmonary opacity in the right lower lobe as well. Electronically Signed: Danilo Bentley DO at 20:35 EDT , Assessment & Plan Assessment/Plan (1) Left lower lobe pulmonary infiltrate: PLAN: Plan The patient is an 88 y/o M w/ PMHx: Former tobacco use, Metastatic Prostate CA following with Dr. Grove, HTN, HLD, CAD s/p PCI and CABG, Chronic anemia, COPD, Hypothyroidism. to the [facility] ED on 08/17/23 with history of increasing fatigue and malaise over the last 72 hours with onset of productive cough of griffith yellow- white sputum with persistent cough and mild dyspnea with exertion with unfortunately mechanical fall noted to have hit his head with EMS call at that time however he refused any transport for evaluation and on day of presentation continued to worsen with onset then nausea and a bout of emesis with poor appetite prompting family to bring him in eventually for evaluation given his significant debility. #1. Mechanical fall with fatigue, malaise, adult failure to thrive, multifactorial as noted below however primarily secondary to acute community- acquired pneumonia, left lower lobe, possibly right lower lobe complicated by underlying COPD: Will admit to [facility], maintain on ATC budesonide therapy, PRN albuterol, maintained on IV Levaquin given allergy history, HOB, IS parameters w/ pending sputum cultures, full respiratory viral panel, procalcitonin and urine antigens. Suspect likely patient will need placed. PT/OT/case management consulted for discharge planning. #2. Acute on chronic hyponatremia, hypochloremia, hypovolemic associated: Admission CMP with sodium 125, chloride 92, baseline sodium noted previously primarily 130 low range, will judiciously hydrate and repeat CMP in AM. #3. Metastatic prostate cancer: Following with Dr. Grove, ongoing oral chemotherapy and status post radical prostatectomy, unfortunately significant metastatic disease to the bone now with plan follow-up this coming week to ascertain if more aggressive treatments would be tolerated. #4. Chronic normocytic anemia: Admission hemoglobin 10.4, MCV 90.9, baseline hemoglobin appears most recently hemoglobin 11.6 12/19/2022 however this is more remote thus unclear recent, will continue to trend CBC. #5. CAD: Status post PCI as well as CABG, will continue aspirin, statin, metoprolol home regimen, not on AG inhibitor/ARB. Also noted previous prescription of Plavix, clarifying this is a prescription that is also ongoing. #6. Chart reported history hypothyroidism: Per current list does not appear to be any type of supplementation, TSH and free T4 will be requested to be cautious. #7. Hypertension: Continue home regimen including metoprolol, PRN hydralazine. #8. Hyperlipidemia: We will continue patient on statin therapy. #9. Allergic rhinitis: Will continue patient on cetirizine regimen. #10. Former tobacco use: Encourage continued tobacco cessation. #11. DVT prophylaxis: Lovenox. #12. CODE status: Patient HCPOA and living will are not in place but his and his 2 children will be his decision makers if necessary he notes. Discussed his age and underlying comorbidities and likelihood of a good outcome should an aggressive cardiopulmonary event occur. Discussed CODE status at length including difference between FULL code, DNR-CCA and DNR-CC status. Following discussions about the differences in these status, requested Full Code status. Advanced Care Planning Face to Face Time: 16 minutes. Charges/Coding Visit Charges Inpatient E&M: 69031 Init Hosp L3 Procedures Hospitalists Procedures: 59791 Advncd Care Plan 30 Min
[2023-08-17 21:45] VITALS: BP 137/52; PULSE 77; RESP 18; TEMP 36.8; O2SAT 96
[2023-08-17 21:56] VITALS: BMI 28.5
[2023-08-17 22:21] LABS: Magnesium 2.2 mg/dL (1.6-2.6); Phosphorus 2.6 mg/dL (2.5-4.9)
[2023-08-17 22:32] LABS: Procalcitonin 0.16 ng/mL (0.00-0.09)
[2023-08-17] MEDS: 0.9% Normal Saline (1000mL) 1,000 ML 100 ML IV (22:35)
[2023-08-17 23:40] LABS: M R Staph aureus DNA By PCR Negative (Negative); Probe Check PASS
[2023-08-18] VITALS (7 sets, daily range): BP systolic 126–148; BP diastolic 51–75; PULSE 70–80; RESP 16–20; TEMP 36.4–37.2; O2SAT 95–98; BMI 28.4
[2023-08-18 05:09] LABS: Absolute Lymphocyte Count 2.53 X10^3/uL (0.83-4.51); Absolute Neutrophil Count 6.8 X10^3/uL (2.0-7.7); Basophil# 0.03 X10^3/uL; Basophil% 0.3 % (0-1); Eosinophil# 0.07 X10^3/uL; Eosinophils% 0.6 % (0-5); Hematocrit 26.8 % (40-54); Hemoglobin 8.7 g/dL (13.0-16.5); Lymphocyte # 2.53 X10^3/ul (0.83-4.51); Lymphocyte % 22.7 % (19-41); Mean Corp Hgb Conc 32.5 g/dL (32-36); Mean Corpuscular Hgb 29.6 pg (27.0-32.0); Mean Corpuscular Volume 91.2 fL (80-94); Mean Platelet Vol. 8.5 fl (6.2-12.0); Monocyte# 1.26 X10^3/uL; Monocyte% 11.3 % (0-10); NRBC Flagged by Analyzer 0 % (0-5); Neutrophil % 61.1 % (47-70); Platelet Count 212 K/mm3 (150-450); RBC Distribution Width CV 16.2 % (11.6-14.6); Red Blood Count 2.94 M/mm3 (4.6-6.2); White Blood Count 11.1 K/mm3 (4.4-11.0)
[2023-08-18 06:13] LABS: ALB/GLOB Ratio 0.6 RATIO (0.9-2.4); AST(SGOT) 22 U/L (15-37); Alanine Aminotransfer ALT/SGPT 11 U/L (16-61); Albumin, Serum 2.1 g/dL (3.2-5.0); Alkaline Phosphatase 1126 U/L (45-117); Anion Gap 11 (5-15); BUN 15 mg/dL (7-18); Calcium,Total 7.7 mg/dL (8.5-10.1); Chloride 97 mmol/L (98-107); Creatinine, Serum 0.71 mg/dL (0.70-1.30); EST Glomerular Filtration Rate 111 mL/min (>60); Est Glom Filt Rate - Afr Amer 134 mL/min (>60); Globulin 3.7 g/dL (2.2-4.2); Glucose 109 mg/dL (74-106); Protein, Total 5.8 g/dL (6.4-8.2); Sodium Level 128 mmol/L (136-145); T4 Free Direct 1.17 ng/dL (0.76-1.46); Thyroid Stim Hormone (TSH) 1.64 uIU/mL (0.358-3.74)
[2023-08-18] MEDS: Aspirin 325 MG Tablet PO (07:42)
--- NOTE | 2023-08-18 08:09 | PCM.PN.HOSP ---
Subjective Subjective Doing well, no issues overnight Objective Data Objective Data Vital Signs: Vital Signs Temp Pulse Resp BP Pulse Ox O2 Del Method 98.2 F 75 16 134/61 H 95 Room Air 08/18/23 07:30 08/18/23 07:30 08/18/23 07:30 08/18/23 07:30 08/18/23 07:30 08/18/23 07:30 Oxygen Delivery Method Room Air Weight: 209 lb 15.845 oz Body Mass Index (BMI) 28.4 Intake & Output: Intake and Output for Last 24 Hours 08/17/23 08/18/23 08/19/23 03:59 03:59 03:59 Intake Total 1150 / 1150 Output Total 300 / 300 Balance 1150 / 1150 -300 / -300 Lab / Micro Data 08/18/23 04:40 08/18/23 04:40 Labs: Laboratory Results - last 24 hr 08/17/23 19:30: WBC 13.4 H, RBC 3.52 L, Hgb 10.4 L, Hct 32.0 L, MCV 90.9, MCH 29.5, MCHC 32.5, RDW Std Deviation 53.0 H, RDW Coeff of Seun 16.0 H, Plt Count 257, MPV 8.3, Immature Gran % (Auto) 3.300 H, Neut % (Auto) 62.7, Lymph % (Auto) 20.0, Cherry % (Auto) 12.9 H, Eos % (Auto) 0.8, Baso % (Auto) 0.3, Absolute Neuts (auto) 8.4 H, Absolute Lymphs (auto) 2.67, Nucleated RBC % 0.1, Differential Comment SEE COMMENT, Diff Path Review May foll, Platelet Estimate ADEQUATE, RBC Morphology N CHROM, Anisocytosis RARE, Macrocytosis RARE, Sodium 125 L, Potassium 4.3, Chloride 92 L, Carbon Dioxide 23.0, Anion Gap 10, BUN 17, Creatinine 0.93, Estim Creat Clear Calc 67.30, Est GFR (MDRD) Af Amer 99, Est GFR (MDRD) Non-Af 82, BUN/Creatinine Ratio 18.3, Glucose 123 H, Lactic Acid 1.2, Calcium 8.4 L, Total Bilirubin 0.70, AST 36, ALT 15 L, Alkaline Phosphatase 1412 H, Total Protein 6.8, Albumin 2.6 L, Globulin 4.2, Albumin/Globulin Ratio 0.6 L 08/17/23 20:15: Urine Color Yellow, Urine Clarity Sl. Cloudy, Urine pH 6.5, Ur Specific [place] 1.010, Urine Protein 30 H, Urine Glucose (UA) Normal, Urine Ketones Negative, Urine Occult Blood Negative, Urine Nitrite Negative, Urine Bilirubin 1 H, Urine Urobilinogen 8 H, Ur Leukocyte Esterase Negative, Urine RBC 0 SEEN, Urine WBC 0 SEEN, Ur Squamous Epith Cells 0 SEEN, Urine Bacteria 0 SEEN, Urine Mucus 0 SEEN 08/17/23 21:57: Phosphorus 2.6, Magnesium 2.2, Procalcitonin 0.16 H 08/17/23 22:25: MRSA (PCR) Negative 08/18/23 04:40: WBC 11.1 H, RBC 2.94 L, Hgb 8.7 L, Hct 26.8 L, MCV 91.2, MCH 29.6, MCHC 32.5, RDW Std Deviation 53.0 H, RDW Coeff of Seun 16.2 H, Plt Count 212, MPV 8.5, Immature Gran % (Auto) 4.000 H, Neut % (Auto) 61.1, Lymph % (Auto) 22.7, Cherry % (Auto) 11.3 H, Eos % (Auto) 0.6, Baso % (Auto) 0.3, Absolute Neuts (auto) 6.8, Absolute Lymphs (auto) 2.53, Nucleated RBC % 0, Sodium 128 L, Potassium 4.0, Chloride 97 L, Carbon Dioxide 20.0 L, Anion Gap 11, BUN 15, Creatinine 0.71, Estim Creat Clear Calc 77.90, Est GFR (MDRD) Af Amer 134, Est GFR (MDRD) Non-Af 111, BUN/Creatinine Ratio 21.0 H, Glucose 109 H, Calcium 7.7 L, Total Bilirubin 0.60, AST 22, ALT 11 L, Alkaline Phosphatase 1126 H, Total Protein 5.8 L, Albumin 2.1 L, Globulin 3.7, Albumin/Globulin Ratio 0.6 L, TSH 1.64, Free T4 1.17 Micro: Microbiology 08/17/23 22:55 Mucosa - Nasopharyngeal Respiratory Panel (PCR) - Final 08/17/23 20:15 Urine Catheter - Catheter Legionella Antigen - Final 08/17/23 20:15 Urine Catheter - Catheter Streptococcus pneumoniae Antigen (M - Final Radiography Diagnostic Testing: Radiology Impression Brain CT 08/17/23 19:07 IMPRESSION: Volume loss with chronic white matter changes. No acute intracranial findings. Electronically Signed: Rik Villasenor MD at 20:32 EDT , Chest X-Ray 08/17/23 19:40 IMPRESSION: Left lower lobe airspace disease may be atelectasis or pneumonia. Perhaps minimal pulmonary opacity in the right lower lobe as well. Electronically Signed: Danilo Bentley DO at 20:35 EDT , Physical Exam Narrative General: Alert, Oriented x3, Cooperative, No apparent distress HEENT: Atraumatic, PERRLA, EOMI, Normocephalic Oral: Moist Mucosa Neck: Supple, No JVD Lungs: Diminished, Normal air movement, No rhonchi, No wheeze, No rales Cardiovascular: Regular rate, Regular Rhythm, Normal S1, Normal S2, No murmurs Abdomen: Soft, Non Tender, Non-Distended, No Hepato-splenomegaly Extremities: No edema, Capillary Refill Less than 3 Seconds Skin: No rashes, No breakdown Musculoskeletal: No Tenderness to Palpation of Joints or Extremities Neurological: No focal neurological deficits, Motor Exam 5/5 strength throughout, Sensory exam intact to light touch and pain Psych/Mental Status: Normal Affect, Appropriate Assessment & Plan Assessment/Plan (1) Left lower lobe pulmonary infiltrate: PLAN: Plan 1. Mechanical fall and failure to thrive secondary to metastatic prostate cancer and community-acquired pneumonia ? She is currently on chemotherapy for metastatic prostate cancer, he was initially diagnosed in 1994 and currently in his bones ? Also found to have a left lower lobe pneumonia started on Levaquin ? PT/OT ? Consult case management for discharge planning he is a little bit hesitant about going to a detention even if it would be necessary 2. Essential HTN/HLD/CAD status post CABG and stent ? Continue with his home blood pressure medications ? Monitor make adjustments as necessary ? Continue with his statin medication DVT: Melissanox Charges/Coding Visit Charges Inpatient E&M: 86474 Subs Hosp L2
[2023-08-18] MEDS: Enoxaparin 40 MG/0.4 ML Syringe SC (10:24)
[2023-08-18] MEDS: Metoprolol(XL)Succ 25 MG Tablet PO (10:24)
[2023-08-18] MEDS: ENZALUTAMIDE 40 MG TABLET 160 MG PO (15:55)
[2023-08-18] MEDS: Budesonide Respules 0.5 MG/2 ML AMPUL.NEB. INHALATION (18:57)
[2023-08-18] MEDS: levoFLOXacin IV 750 MG/150 ML BAG 100 MG IV (21:13)
[2023-08-18] MEDS: Atorvastatin Calcium 20 MG Tablet PO (21:13)
[2023-08-19] VITALS (7 sets, daily range): BP systolic 132–156; BP diastolic 58–62; PULSE 73–82; RESP 16–18; TEMP 36.2–36.7; O2SAT 95–99; BMI 28.4
[2023-08-19 06:03] LABS: Hematocrit 27.2 % (40-54); Hemoglobin 8.7 g/dL (13.0-16.5); Mean Corpuscular Hgb 29.3 pg (27.0-32.0); Mean Corpuscular Volume 91.6 fL (80-94); Mean Platelet Vol. 8.3 fl (6.2-12.0); POSITIVE COUNT YES; POSITIVE MORPHOLOGY YES; Platelet Count 223 K/mm3 (150-450); Red Blood Count 2.97 M/mm3 (4.6-6.2); White Blood Count 9.8 K/mm3 (4.4-11.0)
[2023-08-19 06:28] LABS: Differential Indicated MANUAL DIFF
[2023-08-19 06:38] LABS: Anion Gap 10 (5-15); BUN 14 mg/dL (7-18); BUN/Creat Ratio 21.1 RATIO (10-20); Chloride 96 mmol/L (98-107); Creatinine, Serum 0.66 mg/dL (0.70-1.30); EST Glomerular Filtration Rate 121 mL/min (>60); Est Glom Filt Rate - Afr Amer 146 mL/min (>60); Estimated Creatinine Clearance 77.88 ml/min; Glucose 101 mg/dL (74-106); Potassium 3.9 mmol/L (3.5-5.1); Sodium Level 127 mmol/L (136-145)
[2023-08-19] MEDS: Budesonide Respules 0.5 MG/2 ML AMPUL.NEB. INHALATION ×2 (07:17→18:54)
[2023-08-19] MEDS: Enoxaparin 40 MG/0.4 ML Syringe SC (08:15)
[2023-08-19] MEDS: Metoprolol(XL)Succ 25 MG Tablet PO (08:15)
[2023-08-19] MEDS: Aspirin 325 MG Tablet PO (08:15)
[2023-08-19 08:24] LABS: Eosinophil 1 % (0-5); Lymphocyte 27 % (19-41); Metamyelocyte 2 % (0-1); Monocyte 12 % (0-10); Neutrophil-Band 2 % (0-5); Neutrophil-Segmented 56 % (47-70); Total Cells Counted 100 (MANUAL DIFF)
[2023-08-19 08:25] LABS: Platelet Estimate ADEQUATE (ADEQ); Red Cell Morphology NORM C+C NORMAL (NORM C&C)
[2023-08-19 08:28] LABS: Absolute Neutrophil Count 5.7 X10^3/uL (2.0-7.7)
--- NOTE | 2023-08-19 09:14 | PCM.PN.HOSP ---
Subjective Subjective Doing well, no issues overnight. Says that he was able to get up with assistance last night did have some dizziness though. Objective Data Objective Data Vital Signs: Vital Signs Temp Pulse Resp BP Pulse Ox O2 Del Method 97.2 F L 75 18 137/59 H 95 Room Air 08/19/23 08:03 08/19/23 08:15 08/19/23 08:03 08/19/23 08:03 08/19/23 08:03 08/19/23 08:03 Oxygen Delivery Method Room Air Weight: 209 lb 14.081 oz Body Mass Index (BMI) 28.4 Intake & Output: Intake and Output for Last 24 Hours 08/18/23 08/19/23 08/20/23 03:59 03:59 03:59 Intake Total 1150 / 1150 1400 / 1400 100 / 100 Output Total 1000 / 1000 300 / 300 Balance 1150 / 1150 400 / 400 -200 / -200 Lab / Micro Data 08/19/23 05:29 08/19/23 05:29 Labs: Laboratory Results - last 24 hr 08/19/23 05:29: WBC 9.8, RBC 2.97 L, Hgb 8.7 L, Hct 27.2 L, MCV 91.6, MCH 29.3, MCHC 32.0, RDW Std Deviation 54.0 H, RDW Coeff of Seun 16.0 H, Plt Count 223, MPV 8.3, Neut % (Auto) Not Reportable, Absolute Neuts (auto) 5.7, Absolute Lymphs (auto) 2.60, Total Counted 100, Neutrophils % (Manual) 56, Band Neutrophils % 2, Lymphocytes % (Manual) 27, Monocytes % (Manual) 12 H, Eosinophils % (Manual) 1, Metamyelocytes % 2 H, Diff Path Review July foll, Platelet Estimate ADEQUATE, RBC Morphology NORM C+C, Sodium 127 L, Potassium 3.9, Chloride 96 L, Carbon Dioxide 21.0, Anion Gap 10, BUN 14, Creatinine 0.66 L, Estim Creat Clear Calc 77.88, Est GFR (MDRD) Af Amer 146, Est GFR (MDRD) Non-Af 121, BUN/Creatinine Ratio 21.1 H, Glucose 101, Calcium 8.0 L, Total PSA 257.00 H Micro: Microbiology 08/17/23 22:55 Sputum, Expectorated/Coughed Gram Stain - Final 08/17/23 22:55 Mucosa - Nasopharyngeal Respiratory Panel (PCR) - Final 08/17/23 20:15 Urine Catheter - Catheter Legionella Antigen - Final 08/17/23 20:15 Urine Catheter - Catheter Streptococcus pneumoniae Antigen (M - Final Physical Exam Narrative General: Alert, Oriented x3, Cooperative, No apparent distress HEENT: Atraumatic, PERRLA, EOMI, Normocephalic Oral: Moist Mucosa Neck: Supple, No JVD Lungs: Diminished, Normal air movement, No rhonchi, No wheeze, No rales Cardiovascular: Regular rate, Regular Rhythm, Normal S1, Normal S2, No murmurs Abdomen: Soft, Non Tender, Non-Distended, No Hepato-splenomegaly Extremities: No edema, Capillary Refill Less than 3 Seconds Skin: No rashes, No breakdown Musculoskeletal: No Tenderness to Palpation of Joints or Extremities Neurological: No focal neurological deficits, Motor Exam 5/5 strength throughout, Sensory exam intact to light touch and pain Psych/Mental Status: Normal Affect, Appropriate Assessment & Plan Assessment/Plan (1) Left lower lobe pulmonary infiltrate: PLAN: Plan 1. Mechanical fall and failure to thrive secondary to metastatic prostate cancer and community-acquired pneumonia ? She is currently on chemotherapy for metastatic prostate cancer, he was initially diagnosed in 1994 and currently in his bones ? Recheck PSA and it is in the 250 range ? Also found to have a left lower lobe pneumonia started on Levaquin ? PT/OT ? Consult case management for discharge planning he is a little bit hesitant about going to a [place] health care facility even if it would be necessary 2. Essential HTN/HLD/CAD status post CABG and stent ? Continue with his home blood pressure medications ? Monitor make adjustments as necessary ? Continue with his statin medication 3. Anemia ? Unclear as to the etiology at this time ? No obvious bloody bowel movements ? Will check iron studies ? Recheck hemoglobin this afternoon DVT: Lovenox Charges/Coding Visit Charges Inpatient E&M: 02319 Subs Hosp L2
--- NOTE | 2023-08-19 10:02 | CASEMGMT ---
Social Work- SW met with pt to discuss preferences at d/c. Pt declines list and states FOC is [facility] followed by [facility]. Pt asked SW to call to discuss. SW called pt , Marybeth. Marybeth asked for TCU as first choice. Daughter and POA Monica will be in this afternoon to talk to SW as well. SW to confirm with pt. CHRISTOPHER Guadalupe
[2023-08-19 11:08] LABS: Pathologist Review Reviewed
[2023-08-19 11:08] LABS: Pathologist Review Reviewed
[2023-08-19 11:12] LABS: Ferritin 967 ng/mL (26-388); Iron 35 ug/dL (65-175); Iron Binding Capacity,Total 141 ug/dL (250-450); PERCENT IRON SATURATION 24.8 % (15.0-55.0)
--- NOTE | 2023-08-19 11:15 | CASEMGMT ---
RN CM Face to Face with patient for initial transition planning/care coordination assessment. RN CM introduced self and role at [facility]. Patient lying in bed, alert and oriented. Patient willing to participate in assessment and is able to answer all questions appropriately. Care providers, pharmacy, and demographics verified. PCP: ABHILASH Das Specialists: Dev, urologist; Marisela, cone machine operator Preferred Pharmacy: [facility] Insurance: [employer] [facility]. Prescription Benefit: yes Living Will/HPOA: yes, Marybeth Garcia LNOK: , daughter Living Arrangements: Patient lives with in a single story home with 1 step to enter. Patient states he was independent at home. Transportation: self, DME/HHC: Patient has raised toilet, cane, and walker at home. No previous HHC or SNF Patient wishes to discharge to SNF for additional therapy, SW aware and working with patient and family. Patient states he has no further needs or concerns at this time. CM to follow for discharge planning needs that may arise. Disposition Plan: SNF pending acceptance and precert. Hilaria MADDEN, RN, CM
--- NOTE | 2023-08-19 12:10 | CASEMGMT ---
social Work- SW met with dtr Monica who states that she is hoping for TCU as FOC as well, followed by [facility] and [facility]. Monica states that the family is interested in potential hospice/palliative referral at d/c from rehab, as pt needs additional help at home. SW also discussed HHC. SW provided referral to TCU. CHRISTOPHER Guadalupe
[2023-08-19 12:57] LABS: Hemoglobin 8.9 g/dL (13.0-16.5)
[2023-08-19] MEDS: ENZALUTAMIDE 40 MG TABLET 160 MG PO (15:39)
--- NOTE | 2023-08-19 16:04 | CHAPLAIN ---
Type of Pastoral Visit _x__ Initial Visit ___ Follow-up Visit ___ On-call Visit ___ General Patient Visit ___ Spiritual Assessment ___ Family Conference ___ Bereavement ___ Rapid Response ___ Code Blue ___ Other (describe below) Pastoral Care Referral From _x__ Patient ___ Family ___ Nurse ___ Physician ___ Operations Architect ___ Polisher And Buffer ___ Other (describe below) Sacrament/Intervention _x__ Active listening ___ Anointing ___ Judaism ___ Bereavement ___ Communion ___ Denisse exploration ___ ___ Life review _x__ Prayer ___ Reconciliation ___ Sacrament of Sick _x__ Supportive presence ___ Wedding ___ Other (describe below) Pastoral Comments patient speaks of his aging and increased health needs; pt reports of having communion served today and appreciated; pt states that he has a great family and that is what keeps him going; pt welcomes presence and prayer for support
[2023-08-19] MEDS: levoFLOXacin IV 750 MG/150 ML BAG 100 MG IV (21:52)
[2023-08-19] MEDS: Atorvastatin Calcium 20 MG Tablet PO (21:54)
[2023-08-20 03:04] VITALS: BP 157/69; PULSE 84; RESP 18; TEMP 36.4; O2SAT 96
[2023-08-20 06:00] VITALS: BMI 28.3
[2023-08-20 06:54] VITALS: O2SAT 98
[2023-08-20] MEDS: Budesonide Respules 0.5 MG/2 ML AMPUL.NEB. INHALATION (06:54)
[2023-08-20 06:55] VITALS: PULSE 77; RESP 16
[2023-08-20 08:22] VITALS: BP 144/65; PULSE 80; RESP 18; TEMP 36.4; O2SAT 93
[2023-08-20 08:27] VITALS: PULSE 80
[2023-08-20] MEDS: Enoxaparin 40 MG/0.4 ML Syringe SC (08:27)
[2023-08-20] MEDS: Aspirin 325 MG Tablet PO (08:27)
[2023-08-20] MEDS: Metoprolol(XL)Succ 25 MG Tablet PO (08:27)
[2023-08-20] MEDS: levoFLOXacin 750 MG Tablet PO (08:28)
--- NOTE | 2023-08-20 11:03 | TREXTCAR_ITS ---
Diet Diet Order/Speech Therapy: 08/17/23 21:55 Diet: Cardiac - Heart Healthy Food consistency:: Regular Liquid Consistency:: Regular/Thin Routine Orders/Code Status Routine Lab Work: CBC and BMP Code Status: Full Code Wound(s) right elbow: Wound Type: scattered abrasions Therapies Physical Therapy: Eval and Treat Occupational Therapy: Eval and Treat Problem/Diagnosis (1) Left lower lobe pulmonary infiltrate: Status: Acute Code(s): R91.8 - Other nonspecific abnormal finding of lung field Plan 1. Mechanical fall and failure to thrive secondary to metastatic prostate cancer and community-acquired pneumonia ? She is currently on chemotherapy for metastatic prostate cancer, he was initially diagnosed in 1994 and currently in his bones ? Recheck PSA and it is in the 250 range ? Also found to have a left lower lobe pneumonia started on Levaquin ? PT/OT ? Consult case management for discharge planning he is a little bit hesitant about going to a alf even if it would be necessary 2. Essential HTN/HLD/CAD status post CABG and stent ? Continue with his home blood pressure medications ? Monitor make adjustments as necessary ? Continue with his statin medication 3. Anemia ? Unclear as to the etiology at this time ? No obvious bloody bowel movements ? Will check iron studies ? Recheck hemoglobin this afternoon DVT: Lovenox Allergies/Procedures Done in Hospital Allergies Penicillins Allergy (Verified 08/17/23 18:58) Hives Sulfa (Sulfonamide Antibiotics) Allergy (Verified 08/17/23 18:58) Hives erythromycin base Adverse Reaction (Intermediate, Verified 08/17/23 18:58) Rash minocycline Adverse Reaction (Verified 08/17/23 18:58) Nausea Procedures: None Type of Care/Length of Stay Estimated LOS: Convalescent Care Less Than 30 days Type of Care Needed: Skilled Rehab Potential: Good Prognosis: Good Additional Orders/Day of Discharge Day of Discharge: 08/20/23 Discharge Plan Admission Admit Date/Time: 08/17/23 21:27 Attending Provider: Kraig Michael Primary Care Provider: Chapito Das Consulting Providers: Mouna Brothers Discharge Orders/Prescriptions Prescriptions: New levofloxacin 750 mg Tablet 750 mg PO DAILY@0600 6 Days Qty: 0 0RF Continued aspirin 325 mg tablet 325 mg PO QDAY multivitamin [Daily Multi-Vitamin] tablet 1 tab PO QAM pyridoxine (vitamin B6) 50 mg capsule 50 mg PO DAILY tiotropium bromide [Spiriva with HandiHaler] 18 mcg capsule, w/inhalation device 1 cap inhalation DAILY Rx Instructions: puncture 1 cap using device; one dose = 2 inhalations cetirizine 10 MG tablet 10 mg PO DAILY PRN (Reason: Allergies) nitroglycerin 0.4 mg tablet, sublingual 0.4 mg SUBLINGUAL Q5-15M PRN (Reason: Pain) Qty: 25 3RF cholecalciferol (vitamin D3) 50 mcg (2,000 unit) capsule 50 mcg PO DAILY metoprolol succinate 25 mg tablet extended release 24 hr 25 mg PO DAILY Qty: 90 3RF simvastatin 40 mg tablet 40 mg PO DAILY Qty: 90 3RF Xtandi 40 mg capsule 160 mg PO DAILY Eligard (3 month) 22.5 mg syringe 22.5 mg subcut [id number] Referrals / Follow Up: Chapito Das PA [Primary Care Provider] - Disposition Disposition (needs filled in before D/C Order can be placed): [facility]
--- NOTE | 2023-08-20 11:24 | PHA.DC.MR.R ---
Pharmacy CT Med Reconciliation Pharmacy Service has performed discharge medication reconciliation for this patient. The patient's discharge medication list was reviewed for discrepancies and discrepancies were resolved. Medications at Discharge Home Medications aspirin 325 mg tablet 325 mg PO QDAY 02/19/17 multivitamin (Daily Multi-Vitamin tablet) 1 tab PO QAM 02/19/17 cetirizine 10 mg tablet 10 mg PO DAILY PRN Allergies 10/27/17 pyridoxine (vitamin B6) 50 mg capsule 50 mg PO DAILY 09/30/18 nitroglycerin 0.4 mg sublingual tablet 0.4 mg sublingual Q5-15M PRN Pain #25 tabs 05/24/20 cholecalciferol (vitamin D3) 50 mcg (2,000 unit) capsule 50 mcg PO DAILY 06/08/22 enzalutamide 40 mg capsule (Xtandi) 160 mg PO DAILY 05/06/23 leuprolide (3 month) 22.5 mg (3 month) subcutaneous syringe ([employer]) 22.5 mg subcut [id number] 05/06/23 metoprolol succinate 25 mg tablet,extended release 24 hr 25 mg PO DAILY #90 tabs 05/06/23 simvastatin 40 mg tablet 40 mg PO DAILY #90 tabs 05/06/23 tiotropium bromide 18 mcg capsule with inhalation device (Spiriva with HandiHaler) 1 cap inhalation DAILY 06/11/23 levofloxacin 750 mg tablet 750 mg PO DAILY@0600 6 days #0 tabs 08/20/23
--- NOTE | 2023-08-20 13:24 | CASEMGMT ---
Social Work Pt was accepted by TCU and they did receive insurance authorization. SW called daughter, message left letting her know pt will go to TCU today. SW also let pt know that he was authorized by insurance and will go to TCU today. SW faxed discharge instructions over to TCU. No futher needs, pt to TCU, skilled today. KACY Vasquez
--- NOTE | 2023-08-20 13:38 | DS.PCM_ITS ---
Providers Date of Admission: 08/17/23 Primary Care Physician: ABHILASH Wood Reason For Visit: FALL, ADULT FTT, PNA Diagnosis Discharge Diagnosis (1) Left lower lobe pulmonary infiltrate: Status: Acute Code(s): R91.8 - Other nonspecific abnormal finding of lung field Medications at Discharge Home Medications aspirin 325 mg tablet 325 mg PO QDAY 02/19/17 multivitamin (Daily Multi-Vitamin tablet) 1 tab PO QAM 02/19/17 cetirizine 10 mg tablet 10 mg PO DAILY PRN Allergies 10/27/17 pyridoxine (vitamin B6) 50 mg capsule 50 mg PO DAILY 09/30/18 nitroglycerin 0.4 mg sublingual tablet 0.4 mg sublingual Q5-15M PRN Pain #25 tabs 05/24/20 cholecalciferol (vitamin D3) 50 mcg (2,000 unit) capsule 50 mcg PO DAILY 06/08/22 enzalutamide 40 mg capsule (Xtandi) 160 mg PO DAILY 05/06/23 leuprolide (3 month) 22.5 mg (3 month) subcutaneous syringe ([employer]) 22.5 mg subcut [id number] 05/06/23 metoprolol succinate 25 mg tablet,extended release 24 hr 25 mg PO DAILY #90 tabs 05/06/23 simvastatin 40 mg tablet 40 mg PO DAILY #90 tabs 05/06/23 tiotropium bromide 18 mcg capsule with inhalation device (Spiriva with HandiHaler) 1 cap inhalation DAILY 06/11/23 levofloxacin 750 mg tablet 750 mg PO DAILY@0600 6 days #0 tabs 08/20/23 Hospital Course Operations None Procedures None Summary of Care Provided Minutes Spent on Discharge: 33 Hospital Course: Per HPI: The patient is an 88 y/o M w/ PMHx: Former tobacco use, Metastatic Prostate CA following with Dr. Grove, HTN, HLD, CAD s/p PCI and CABG, Chronic anemia, COPD, Hypothyroidism. to the [facility] ED on 08/17/23 with history of increasing fatigue and malaise over the last 72 hours with onset of productive cough of griffith yellow-white sputum with persistent cough and mild dyspnea with exertion with unfortunately mechanical fall noted to have hit his head with EMS call at that time however he refused any transport for evaluation and on day of presentation continued to worsen with onset then nausea and a bout of emesis with poor appetite prompting family to bring him in eventually for evaluation given his significant debility. Patient reports that over the last 3 days he has had lightheadedness some send dizziness especially the activity attempts as well. He again reports poor oral intake including food and water. Workup in the ED included T98.4, heart rate 85, BP 108/51, respiratory rate 18, 95% on room air, CBC with WC 13.4, human 10.4, MCV 90.9, platelet 257 with left shift, CMP with sodium 125, chloride 92, glucose 123, hepatic profile with alk phos 1412, lactic acid 1.2, urinalysis not marked appearing, CT brain with chronic volume loss with white matter changes, no acute intracranial findings, chest x-ray with left lower lobe airspace disease with possible atelectasis versus pneumonia's and minimal opacity noted in the right lower lobe as well, EKG with sinus rhythm with no acute evidence of ischemia. In the ED patient ministered 1 L normal saline as well as Levaquin 7 and 50 mg IV x 1. Hospital Course: 1. Mechanical fall failure to thrive secondary to metastatic prostate cancer and community-acquired pneumonia due to stenotrophomonas?88-year-old male presented to the hospital with failure to thrive and mechanical fall. He has been significantly weak and is currently dealing with metastatic prostate cancer to his bones. He did have a recheck of his PSA which was in the 250 range he does have an elevation in alk phos as well which is related to his bone metastasis. On CT he was found to have community-acquired pneumonia and culture demonstrates stenotrophomonas sensitive to Levaquin which she has been on since admission. Will continue for another 6 days at 750 mg p.o. daily. I discussed with him the plan for discharge today he expressed understanding the risk benefits of going to SNF and would like to go to SNF today. 2. Anemia of chronic disease?iron studies demonstrate a chronic disease pattern he does not have any bright red blood or dark stools. Given his age and his functionality would recommend continued outpatient monitoring of his hemoglobin versus proceeding with colon prep and EGD though this could be considered in the future if he has better protoplasm and would be better able to tolerate any type of procedures. Of note his hemoglobin did go up to 8.9. 3. Essential hypertension, hyperlipidemia, coronary artery disease status post CABG and stent Physical Exam Narrative General: Alert, Oriented x3, Cooperative, No apparent distress HEENT: Atraumatic, PERRLA, EOMI, Normocephalic Oral: Moist Mucosa Neck: Supple, No JVD Lungs: Diminished, Normal air movement, No rhonchi, No wheeze, No rales Cardiovascular: Regular rate, Regular Rhythm, Normal S1, Normal S2, No murmurs Abdomen: Soft, Non Tender, Non-Distended, No Hepato-splenomegaly Extremities: No edema, Capillary Refill Less than 3 Seconds Skin: No rashes, No breakdown Musculoskeletal: No Tenderness to Palpation of Joints or Extremities Neurological: No focal neurological deficits, Motor Exam 5/5 strength throughout, Sensory exam intact to light touch and pain Psych/Mental Status: Normal Affect, Appropriate Weight / BMI Weight Weight: 209 lb 10.554 oz Body Mass Index (BMI) 28.3 ABG / Lab / Microbiology Data 08/19/23 12:20 08/19/23 05:29 Microbiology: Microbiology 08/17/23 22:55 Sputum, Expectorated/Coughed Gram Stain - Final 08/17/23 22:55 Sputum, Expectorated/Coughed Respiratory Culture - Preliminary Stenotrophomonas maltophilia 08/17/23 22:55 Mucosa - Nasopharyngeal Respiratory Panel (PCR) - Final 08/17/23 20:15 Urine Catheter - Catheter Legionella Antigen - Final 08/17/23 20:15 Urine Catheter - Catheter Streptococcus pneumoniae Antigen (M - Final Meaningful Use Info Meaningful Use Meaningful Use Diagnoses (Choose all that apply): None applicable Ischemic Stroke Statin Dosing Therapy Reference: STATIN DOSE THERAPY REFERENCE: * Patients > 75 years receive moderate or high dose statin therapy. * Patients 75 years or YOUNGER should receive HIGH intensity statin dose unless contraindicated. You will be required to document reason for non-treatment if statin daily dose does not meet guidelines. HIGH DOSE STATIN THERAPY DAILY Atorvastatin > than or = to 40 mg Rosuvastatin > than or = to 20 mg Amlodipine + Atorvastatin > than or = to 2.5/40 mg Ezetimibe + Simvastatin 10/80 mg Simvastatin 80mg Discharge Plan Admission Admit Date/Time: 08/17/23 21:27 Attending Provider: Kraig Michael Primary Care Provider: Chapito Das Consulting Providers: Mouna Brothers Discharge Orders/Prescriptions Prescriptions: New levofloxacin 750 mg Tablet 750 mg PO DAILY@0600 6 Days Qty: 0 0RF Continued aspirin 325 mg tablet 325 mg PO QDAY multivitamin [Daily Multi-Vitamin] tablet 1 tab PO QAM pyridoxine (vitamin B6) 50 mg capsule 50 mg PO DAILY tiotropium bromide [Spiriva with HandiHaler] 18 mcg capsule, w/inhalation device 1 cap inhalation DAILY Rx Instructions: puncture 1 cap using device; one dose = 2 inhalations cetirizine 10 MG tablet 10 mg PO DAILY PRN (Reason: Allergies) nitroglycerin 0.4 mg tablet, sublingual 0.4 mg SUBLINGUAL Q5-15M PRN (Reason: Pain) Qty: 25 3RF cholecalciferol (vitamin D3) 50 mcg (2,000 unit) capsule 50 mcg PO DAILY metoprolol succinate 25 mg tablet extended release 24 hr 25 mg PO DAILY Qty: 90 3RF simvastatin 40 mg tablet 40 mg PO DAILY Qty: 90 3RF Xtandi 40 mg capsule 160 mg PO DAILY Eligard (3 month) 22.5 mg syringe 22.5 mg subcut [id number] Referrals / Follow Up: Chapito Das PA [Primary Care Provider] - Disposition Disposition (needs filled in before D/C Order can be placed): Long-Term Facility Charges/Coding Visit Charges Inpatient E&M: 56255 Disch Hosp >30min
[2023-08-20 13:58] VITALS: BP 130/62; PULSE 80; RESP 18; TEMP 36.7; O2SAT 96
[2023-08-20] MEDS: ENZALUTAMIDE 40 MG TABLET 160 MG PO (14:00)
== END 2023-08-20 14:33 | disposition skilled nursing facility (03) | DRG 178 ==
LOC: ED 20:46 → MS3 21:44
PROVIDERS: Admitting Provider Family Medicine; Emergency Provider Emergency Medicine; PCP Physician Assistant; Visit Provider Family Medicine
DX: J15.69 Pneumonia due to other Gram-negative bacteria (principal); C79.51 Secondary malignant neoplasm of bone; J44.0 Chronic obstructive pulmonary disease with (acute) lower respiratory infection; R62.7 Adult failure to thrive; C61 Malignant neoplasm of prostate; D63.0 Anemia in neoplastic disease; I10 Essential (primary) hypertension; E03.9 Hypothyroidism, unspecified; E78.5 Hyperlipidemia, unspecified; I25.10 Atherosclerotic heart disease of native coronary artery without angina pectoris; I25.2 Old myocardial infarction; Z68.28 Body mass index [BMI] 28.0-28.9, adult; Z95.1 Presence of aortocoronary bypass graft; Z95.5 Presence of coronary angioplasty implant and graft; Z79.82 Long term (current) use of aspirin; Z79.899 Other long term (current) drug therapy; Z86.16 Personal history of COVID-19; Z87.891 Personal history of nicotine dependence
CPT/HCPCS: 36415; 70450; 71046; 80048; 80053; 81001; 82728; 83540; 83550; 83605; 83735; 84100; 84145; 84153; 84439; 84443; 85018; 85025; 87070; 87077; 87186; 87205; 87449; 87633; 87641; 93005; 94640; 94668; 97162; 97166; 97530; 99285; J7030; P9612; A4216

== ENCOUNTER 2023-08-20 14:40 | Inpatient (IN) | payer MEDICARE, SELFPAY ==
[2023-08-20 15:06] VITALS: BP 138/60; PULSE 77; RESP 18; TEMP 36.3; O2SAT 97; BMI 28.0
--- NOTE | 2023-08-20 21:03 | HP.PCM_ITS ---
HPI - General General Date of Admission: 08/20/23 Date of Service: 08/20/23 Chief Complaint: Here for rehabilitation. HPI Narrative 08/17/2023 SONJA HOPE, is a 88 Male who presents to [facility] ED with weakness. Disoriented for 1-2 days, not eating, fell, hit head, occipital headache. Unable to stand or walk. Thirsty, dry mouth. Chest pain, cough productive of white sputum. Chest X-ray x/w pneumonia, antibiotics given. 08/17/2023 Admit [facility]. Levaquin iv for pneumonia. PT/OT for debility. IV fluids for sodium 125. 08/18/2023 Doing well, no overnight issues. On chemotherapy for metastatic prostate cancer. PT/OT SNF. Levaquin iv for pneumonia. 08/19/2023 Able to get up with assistance, but dizzy. PSA > 250, metastatic prostate cancer currently being treated with Xtandi daily, and Eligard injections q3m. Levaquin iv left lower lobe pneumonia. 08/20/2023 Admit to TCU with debility, here for rehabilitation, strengthening, prior to discharge home with . [facility] Medical History (Updated 08/20/23 @ 21:[address] Sam Trejo MD) COVID-19 virus detected (04/2020) Old inferior wall myocardial infarction Obesity Atherosclerosis of coronary artery bypass graft without angina pectoris Atherosclerosis of coronary artery of [place] heart without angina pectoris Essential (primary) hypertension Hyperlipidemia History of bronchitis History of prostate cancer Hypothyroidism COPD (chronic obstructive pulmonary disease) Home Medications ?Medication ?Instructions ?Recorded ?Last Taken ?Type aspirin 325 mg tablet 325 mg PO QDAY blood thinner 02/19/17 Unknown History multivitamin (Daily Multi-Vitamin 1 tab PO QAM supplement 02/19/17 Unknown History tablet) cetirizine 10 mg tablet 10 mg PO DAILY PRN Allergies 10/27/17 Unknown History pyridoxine (vitamin B6) 50 mg 50 mg PO DAILY supplement 09/30/18 Unknown History capsule nitroglycerin 0.4 mg sublingual 0.4 mg sublingual Q5-15M PRN Pain 05/24/20 Unknown Rx tablet #25 tabs cholecalciferol (vitamin D3) 50 50 mcg PO DAILY supplement 06/08/22 Unknown History mcg (2,000 unit) capsule enzalutamide 40 mg capsule (Xtandi) 160 mg PO DAILY Prostate CA 05/06/23 08/20/23 History leuprolide (3 month) 22.5 mg (3 22.5 mg subcut [id number] hormone 05/06/23 Unknown History month) subcutaneous syringe (Eligard) metoprolol succinate 25 mg 25 mg PO DAILY BP/pulse #90 tabs 05/06/23 Unknown Rx tablet,extended release 24 hr simvastatin 40 mg tablet 40 mg PO DAILY cholesterol #90 tabs 05/06/23 Unknown Rx tiotropium bromide 18 mcg capsule 1 cap inhalation DAILY COPD 06/11/23 Unknown History with inhalation device (Spiriva with HandiHaler) levofloxacin 750 mg tablet 750 mg PO DAILY@0600 antibiotic 6 08/20/23 Unknown Rx days #0 tabs Allergy/AdvReac Type Severity Reaction Status Date / Time Penicillins Allergy Hives Verified 08/17/23 18:58 Sulfa (Sulfonamide Allergy Hives Verified 08/17/23 18:58 Antibiotics) erythromycin base AdvReac Intermediate Rash Verified 08/17/23 18:58 minocycline AdvReac Nausea Verified 08/17/23 18:58 Family History Brother CAD (coronary artery disease) Myocardial infarction Sudden cardiac Diabetes Sister Breast cancer Mother Diabetes Surgical History History of colonoscopy History of left heart catheterization (07/25/07) History of coronary artery stent placement (07/16/07) H/O coronary artery bypass surgery (2004) H/O basal cell carcinoma excision History of thoracentesis left elbow bursitis History of hernia repair spermatolectomy History of radical prostatectomy Social History household members: spouse Smoking Status: Former smoker how long ago did patient quit smokin second hand exposure: No alcohol intake: former year quit: 2003 substance use type: does not use what type of physical activity do you participate in: walking and additional details: pulmonary rehab frequency: 1-2 times per week duration: 45-60 minutes/day seatbelt use: always do you feel safe at home: Yes ROS Constitutional Constitutional: Denies chills, fever(s) or weight gain ENT HEENT: Denies headache(s), nasal congestion or nasal discharge Cardiovascular Cardiovascular: Denies chest pain or palpitations Respiratory/Chest Respiratory/Chest: Denies cough, excessive phlegm production or shortness of breath with exertion Gastrointestinal Gastrointestinal: Denies abdominal pain, nausea or vomiting Genitourinary Genitourinary: Denies dysuria Musculoskeletal Musculoskeletal: Denies joint pain or joint swelling Integumentary Integumentary: Denies rash or wounds Neurologic Neurologic: Denies focal weakness, numbness or tingling Psychiatric Psychiatric: Denies anxiety, auditory hallucinations, depression, homicidal ideation or suicidal ideation Vital Signs Vital Signs Vital Signs: 08/20/23 15:06 08/20/23 15:06 Temperature 97.3 F L Temperature Source Temporal Pulse Rate 77 Pulse Rhythm Regular Pulse Strength Normal (2+) Respiratory Rate 18 Respiratory Effort Normal Non-Labored Respiratory Depth Normal Respiratory Pattern Normal Blood Pressure 138/60 H Blood Pressure Mean 86 Blood Pressure Source Monitor Blood Pressure Position Semi-Fowlers Blood Pressure Location Right Arm Pulse Ox 97 Oxygen Delivery Method Room Air Room Air Weight Weight: 93.894 kg Body Mass Index (BMI) 28.0 Physical Exam Const alert General Appearance: cooperative HEENT normocephalic Eyes PERRL and EOMs intact bilaterally Neck supple, no JVD and no carotid bruits Resp normal respiratory effort, normal air movement and clear to auscultation bilaterally Cardio regular rate and regular rhythm GI normal to inspection, nondistended, normoactive bowel sounds, non-tender and non-distended Extremity normal capillary refill General Extremity: Negative for edema Skin no rashes or lesions noted General Skin Exam: no breakdown Psych affect normal Appearance: appropriate Assessment & Plan Assessment/Plan (1) Debility: (2) Fall: (3) Closed head injury: (4) Left lower lobe pneumonia: (5) Hyponatremia: (6) Primary malignant neoplasm of prostate metastatic to bone: (7) Coronary artery disease: (8) Essential (primary) hypertension: (9) Hyperlipidemia: (10) Allergic rhinitis: (11) COPD (chronic obstructive pulmonary disease): PLAN: Plan 88 year old male with below past medical history significant for metastatic prostate cancer, hospitalized for weakness 2/2 left lower lobe pneumonia, admitted to TCU with debility, here for rehabilitation, strengthening, prior to discharge home with . * Debility - PT/OT. * Pain - Tylenol 1000mg q6 prn pain (1-10). * Bowel - senna/colace 1 tablet bid, Magnesium citrate 300ml daily prn. * Adult immunization - Administer pneumonia vaccine, covid vaccine, flu vaccine as appropriate. * DVT prophylaxis - Lovenox 40mg sc daily. * Hyponatremia - bmp tomorrow. * Metastatic prostate cancer - Xtandi 160mg daily, Eligard 22.5mg im q3m, PSA > 250, consult Dr. Grove to see what is next step in treatment. * Coronary artery disease - Metoprolol succinate 25mg daily, Aspirin 325mg daily, NTG 0.4mg sl q5m prn. * Hyperlipidemia - Atorvastatin 20mg qhs. * Vitamin D deficiency - D3 50mcg daily. * LLL pneumonia - Levaquin 750mg po daily thru 08/27/2023. * Allergic rhinitis - Loratadine 10mg daily prn. * Skin irritation - Calmoseptine topical bid. * Nutrition - MVI 1 tablet daily * Vitamin B-6 deficiency - B-6 50mg daily. * COPD - Incruse 1 puff daily.
[2023-08-20] MEDS: Senna/Docusate Sodium 1 Tablet PO (21:44)
[2023-08-20] MEDS: Atorvastatin Calcium 20 MG Tablet PO (21:44)
[2023-08-20] MEDS: Menthol/Lanolin/Calamine/Znox 113 GM Tube 1 APPLIC TOPICAL (21:44)
[2023-08-21] MEDS: levoFLOXacin 750 MG Tablet PO (05:43)
[2023-08-21] MEDS: Enoxaparin 40 MG/0.4 ML Syringe SC (05:43)
[2023-08-21 05:56] LABS: Hematocrit 28.6 % (40-54); Mean Corp Hgb Conc 31.5 g/dL (32-36); Mean Corpuscular Volume 92.3 fL (80-94); Mean Platelet Vol. 8.4 fl (6.2-12.0); POSITIVE COUNT YES; POSITIVE MORPHOLOGY YES; Platelet Count 226 K/mm3 (150-450); RBC Distribution Width CV 16.1 % (11.6-14.6); RBC Distribution Width SD 54.2 fl (35.1-43.9); White Blood Count 10.1 K/mm3 (4.4-11.0)
[2023-08-21 06:23] LABS: Differential Indicated MANUAL DIFF
[2023-08-21 07:44] LABS: Lymphocyte 33 % (19-41); Metamyelocyte 4 % (0-1); Monocyte 5 % (0-10); Myelocyte 2 % (0-0); Neutrophil-Band 5 % (0-5); Neutrophil-Segmented 51 % (47-70); Platelet Estimate ADEQUATE (ADEQ); Red Cell Morphology NORM C+C NORMAL (NORM C&C); Total Cells Counted 100 (MANUAL DIFF)
[2023-08-21 07:45] LABS: Absolute Neutrophil Count 5.6 X10^3/uL (2.0-7.7)
[2023-08-21] MEDS: Acetaminophen 500 MG Tablet 1000 MG PO (08:20)
[2023-08-21] MEDS: Aspirin 325 MG Tablet PO (08:20)
[2023-08-21] MEDS: Multivitamins,Therapeutic Tablet 1 TABLET PO (08:20)
[2023-08-21 08:56] LABS: Anion Gap 9 (5-15); BUN 14 mg/dL (7-18); BUN/Creat Ratio 20.3 RATIO (10-20); Calcium,Total 8.3 mg/dL (8.5-10.1); Chloride 96 mmol/L (98-107); Creatinine, Serum 0.69 mg/dL (0.70-1.30); EST Glomerular Filtration Rate 115 mL/min (>60); Est Glom Filt Rate - Afr Amer 139 mL/min (>60); Glucose 102 mg/dL (74-106); Potassium 3.9 mmol/L (3.5-5.1); Sodium Level 127 mmol/L (136-145)
[2023-08-21] MEDS: Umeclidinium Bromide Inhaler 1 PUFF INHALATION (09:47)
[2023-08-21] MEDS: Senna/Docusate Sodium 1 Tablet PO ×2 (09:48→21:30)
[2023-08-21] MEDS: Menthol/Lanolin/Calamine/Znox 113 GM Tube 1 APPLIC TOPICAL ×2 (09:49→21:31)
[2023-08-21 09:51] VITALS: BP 100/49; PULSE 80
[2023-08-21] MEDS: Metoprolol(XL)Succ 25 MG Tablet PO (09:51)
[2023-08-21] MEDS: Tuberculin,Purif.prot.deriv. 50 TU/ML Vial 0.1 ML ID (09:55)
[2023-08-21] MEDS: Cholecalciferol (VIT D3) 25 MCG TABLET (1,000 UNITS) 50 MCG PO (10:20)
[2023-08-21] MEDS: Pyridoxine HCl 50 MG Tablet PO (10:20)
[2023-08-21 10:45] LABS: Pathologist Review Reviewed
--- NOTE | 2023-08-21 12:11 | NURSING ---
Programs Director Note; Activity Asset: Beau Kim is independent in his choice of daily activities. His and children will visits along w/[facility]. He welcomes visits from the shake table operator and therapy dog as well. He requested small print word search stating he can not see well when it is larger print. He will read and watch tv in his room when not w/therapy. Staff will remind him of weekly activities, encourage social interaction and respect his right to say no.
[2023-08-21 16:00] VITALS: BP 100/49; PULSE 80; RESP 16; TEMP 36.6; O2SAT 95
[2023-08-21] MEDS: Ensure Plus High Protein 120 ML LIQUID PO (16:43)
[2023-08-21] MEDS: ENZALUTAMIDE 40 MG TABLET 160 MG PO (16:44)
[2023-08-21] MEDS: Atorvastatin Calcium 20 MG Tablet PO (21:30)
[2023-08-21 21:38] VITALS: PULSE 81; RESP 16; O2SAT 95
[2023-08-22] MEDS: levoFLOXacin 750 MG Tablet PO (05:42)
[2023-08-22] MEDS: Ensure Plus High Protein 120 ML LIQUID PO ×3 (08:01→17:04)
[2023-08-22 08:02] VITALS: BP 116/48; PULSE 78
[2023-08-22] MEDS: Cholecalciferol (VIT D3) 25 MCG TABLET (1,000 UNITS) 50 MCG PO (08:02)
[2023-08-22] MEDS: Metoprolol(XL)Succ 25 MG Tablet PO (08:02)
[2023-08-22] MEDS: Umeclidinium Bromide Inhaler 1 PUFF INHALATION (08:02)
[2023-08-22] MEDS: Senna/Docusate Sodium 1 Tablet PO ×2 (08:04→21:10)
[2023-08-22] MEDS: Aspirin 325 MG Tablet PO (08:04)
[2023-08-22] MEDS: Pyridoxine HCl 50 MG Tablet PO (08:04)
[2023-08-22] MEDS: Multivitamins,Therapeutic Tablet 1 TABLET PO (08:04)
[2023-08-22] MEDS: Menthol/Lanolin/Calamine/Znox 113 GM Tube 1 APPLIC TOPICAL ×2 (08:04→21:11)
[2023-08-22 08:46] LABS: Osmolality, Serum 269 mOsm/KG (280-301)
--- NOTE | 2023-08-22 09:46 | MDS.RN ---
Pt request family not be notified about Care Plan Meeting scheduled for 08/28/23.
--- NOTE | 2023-08-22 10:45 | NURSING ---
Called for consult with Dr. Grove, they asked for patient to be brought to office. Office appt made for August 25 at 10:30. Patient updated, he will update his when she comes in today.
--- NOTE | 2023-08-22 15:06 | PCM.PN.DRR ---
TCU RX Drug Regimen Review Subjective/Objective Subjective/Objective: Subjective: 88 YOM admitted to [facility] for weakness, inability to stand. Chest X-ray during hospitalization showed pneumonia, pt treated with Levofloxacin. Patient now admitted to TCU on 08/20/23 for strengthening and rehabilitation prior to discharge home where he resides with his . Objective: Allergies Penicillins Allergy (Verified 08/17/23 18:58) Hives Sulfa (Sulfonamide Antibiotics) Allergy (Verified 08/17/23 18:58) Hives erythromycin base Adverse Reaction (Intermediate, Verified 08/17/23 18:58) Rash minocycline Adverse Reaction (Verified 08/17/23 18:58) Nausea Current Medications Generic Name Dose Route Start Last Admin Trade Name Freq PRN Reason Stop Dose Admin Acetaminophen 1,000 mg 08/20/23 21:17 08/21/23 08:20 Acetaminophen 500 Mg Tablet PO 1,000 mg Q6H PRN PRN Administration Pain Score 1-10 Aspirin 325 mg 08/21/23 08:00 08/22/23 08:04 Aspirin 325 Mg Tablet PO 325 mg DAILYCM FLAVIO Administration Atorvastatin Calcium 20 mg 08/20/23 22:00 08/21/23 21:30 Atorvastatin Calcium 20 Mg Tablet PO 20 mg QHS FLAVIO Administration Calamine/Phenol 1 applic 08/20/23 22:00 08/22/23 08:04 Menthol/Lanolin/Calamine/Znox 113 Gm Tube TOPICAL 1 applic BID FLAVIO Administration Protocol Cholecalciferol 50 mcg 08/21/23 10:00 08/22/23 08:02 Cholecalciferol (Vit D3) 25 Mcg Tablet (1,000 Units) PO 50 mcg DAILY FLAVIO Administration Levofloxacin 750 mg 08/21/23 06:00 08/22/23 05:42 Levofloxacin 750 Mg Tablet PO 08/27/23 06:01 750 mg DAILY@0600 FLAVIO Administration Loratadine 10 mg 08/21/23 10:00 Loratadine 10 Mg Tablet PO DAILY PRN Allergies Magnesium Citrate 300 ml 08/20/23 21:17 Magnesium Citrate 300 Ml PO DAILY PRN Constipation Metoprolol Succinate 25 mg 08/21/23 10:00 08/22/23 08:02 Metoprolol(Xl)Succ 25 Mg Tablet PO 25 mg DAILY FLAVIO Administration Protocol Multivitamins 1 tablet 08/21/23 08:00 08/22/23 08:04 Multivitamins,Therapeutic Tablet PO 1 tablet DAILYCM FLAVIO Administration Nitroglycerin 0.4 mg 08/20/23 15:26 Nitroglycerin (Inpatient Use) 0.4 Mg Tab.Subl SL Q5M PRN CARDIAC/CHEST PAIN Nutritional Formula (Lactose Free) 120 ml 08/21/23 17:45 08/22/23 12:35 Ensure Plus High Protein 120 Ml Liquid PO 120 ml TIDCM FLAVIO Administration Pyridoxine HCl 50 mg 08/21/23 10:00 08/22/23 08:04 Pyridoxine Hcl 50 Mg Tablet PO 50 mg DAILY FLAVIO Administration Senna/Docusate Sodium 1 tablet 08/20/23 22:00 08/22/23 08:04 Senna/Docusate Sodium 1 Tablet PO 1 tablet BID FLAVIO Administration Tuberculin PPD 0.1 ml 08/28/23 10:00 Tuberculin,Purif.Prot.Deriv. 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) Hyperlipidemia (Chronic) Vital Signs Temp Pulse Resp BP Pulse Ox O2 Del Method 97.9 F 78 16 116/48 L 95 Room Air 08/21/23 16:00 08/22/23 08:02 08/21/23 21:38 08/22/23 08:02 08/21/23 21:38 08/22/23 06:27 Oxygen Delivery Method Room Air Weight: 93.894 kg Body Mass Index (BMI) 28.0 Sodium 127 mmol/L (136-145) L 08/21/23 05:26 Potassium 3.9 mmol/L (3.5-5.1) 08/21/23 05:26 Chloride 96 mmol/L (98-107) L 08/21/23 05:26 Carbon Dioxide 22.0 mmol/L (21.0-32.0) 06/05/24 05:26 Anion Gap 9 (5-15) 08/21/23 05:26 BUN 14 mg/dL (7-18) 08/21/23 05:26 Creatinine 0.69 mg/dL (0.70-1.30) L 08/21/23 05:26 Est GFR (MDRD) Af Amer 139 mL/min (>60) 08/21/23 05:26 Est GFR (MDRD) Non-Af 115 mL/min (>60) 08/21/23 05:26 BUN/Creatinine Ratio 20.3 RATIO (10-20) H 08/21/23 05:26 Glucose 102 mg/dL (74-106) 08/21/23 05:26 Assessment/Plan: 1. Pain: Tylenol 1000mg PO Q6h PRN Pain 1-10. Please continue to monitor for increased/decreased S/S pain, PRN medication usage. -The patient has had 1 PRN dose of PRN Tylenol for pain in the ankle rated 6/10. Post medication pain rated 2/10. Pain appears managed with current therapy. 2. LLL Pneumonia: Levofloxacin 750mg PO Daily thru 08/27/23. Please continue to monitor for resolution of infection, microbiology data if applicable, CrCl (77 mL/min on 08/20), GI upset, diarrhea. -Culture data from 08/16 shows sputum culture growing Stenotrophomonas, sensitive to Levaquin. Patient's therapy is adequate at this time based on sensitivity data. 3. CAD/ HLD: Aspirin 325mg PO Daily, Lipitor 20mg PO QHS, Toprol XL 25mg PO Daily, Nitrostat Q5M PRN. Please continue to monitor for bleeding/bruising, platelets (226 on 08/20), lipid panel annually (last completed 12/2022), BP (last 116/48), pulse (last 78). 4. Metastatic Prostate cancer: Xtandi 160mg PO daily. Also gets Eliguard injections every 3 months as outpatient. PSA >250 per review, urology is consulted to assist in next treatment steps. Please continue to monitor for back pain, diarrhea, fatigue, hot flashes, and hyponatremia while on Xtandi. 5. COPD: Incruse Inhalation daily. Please continue to monitor for S/S COPD exacerbations, cough, pharyngitis, nausea, dyspepsia. 6. Seasonal Allergies: Claritin 10mg PO daily PRN. Please continue to monitor for medication effectiveness, sedation. 7. General Wellness: Vitamin D 50mcg PO Daily, Vitamin B6 50mg PO Daily, MVI 1 tab PO daily. 8. Skin Integrity: Calmoseptine 1 application topically BID. Please continue to monitor for skin irritation, redness, ulcer formation. 9. Bowel: Senna/Docusate 1 tab PO BID, Magnesium Citrate 300mL PO Daily PRN. Please continue to monitor for increased/decreased constipation and/or diarrhea. -Note: The patient had a documented bowel movement on 08/20/23. Assessment/Plan for indications treated with psychotropic medications: -The patient is not currently being maintained on any psychotropic medications at time of medication list review. Medical chart and medication regimen reviewed. The following medication irregularities or issues were identified: 1. CAD: On Metoprolol XL 25mg PO Daily. Patient's Blood pressures have been consistently low (range 100-116/48-49). Please continue to monitor closely and consider decreasing dose of Toprol XL if patient is symptomatic or continues to run low, thank you. 2. CAD: Patient on aspirin 325mg PO Daily. Please evaluate if full strength aspirin is clinically indicated. If not, please consider changing aspirin from 325mg to 81mg PO daily, thank you. 3. Hyperlipidemia: Patient taking Lipitor for CAD. last lipid panel per EMR review was 12/2022. Please consider obtaining an updated lipid panel if clinically indicated, thank you. Date Date of Note:: 08/22/23
[2023-08-22 15:28] VITALS: BP 152/66; PULSE 78; RESP 16; TEMP 37.1; O2SAT 95
[2023-08-22 16:14] LABS: Urine Sodium 47 mmol/L (Not Establ.)
[2023-08-22] MEDS: ENZALUTAMIDE 40 MG TABLET 160 MG PO (16:14)
[2023-08-22] MEDS: Magnesium Citrate 300 ML PO (17:07)
[2023-08-22 20:19] LABS: Osmolality, Urine 550 mOsm/KG
[2023-08-22] MEDS: Atorvastatin Calcium 20 MG Tablet PO (21:10)
[2023-08-23] MEDS: levoFLOXacin 750 MG Tablet PO (05:42)
[2023-08-23 08:23] VITALS: BP 114/48; PULSE 80; RESP 16; TEMP 36.6; O2SAT 96
[2023-08-23 08:28] VITALS: PULSE 80
[2023-08-23] MEDS: Metoprolol(XL)Succ 25 MG Tablet PO (08:28)
[2023-08-23] MEDS: Senna/Docusate Sodium 1 Tablet PO (08:28)
[2023-08-23] MEDS: Aspirin 325 MG Tablet PO (08:29)
[2023-08-23] MEDS: Umeclidinium Bromide Inhaler 1 PUFF INHALATION (08:29)
[2023-08-23] MEDS: Multivitamins,Therapeutic Tablet 1 TABLET PO (08:29)
[2023-08-23] MEDS: Menthol/Lanolin/Calamine/Znox 113 GM Tube 1 APPLIC TOPICAL ×2 (08:29→20:12)
[2023-08-23] MEDS: Cholecalciferol (VIT D3) 25 MCG TABLET (1,000 UNITS) 50 MCG PO (08:29)
[2023-08-23] MEDS: Pyridoxine HCl 50 MG Tablet PO (08:32)
--- NOTE | 2023-08-23 08:37 | NURSING ---
Addendum entered by Lynn Oliva 08/23/23 14:12: dr trejo updated, xray of abdomen and pelvis done, reviewed by Dr Trejo. new order for SSE x1. pt aware and agreeable. Original Note: pt c/o dry heaves, attempted to drink OJ and some came back up, did not observe per pt report. will continue to monitor. stated I did yesterday day morning too
[2023-08-23] MEDS: Acetaminophen 500 MG Tablet 1000 MG PO (11:59)
--- NOTE | 2023-08-23 12:59 | NURSING ---
Updated that a patient on the unit tested covid positive. He did not wish for his family to be notified.
--- NOTE | 2023-08-23 13:29 | RAD_ITS ---
STUDY: X-RAY - PELVIS REASON FOR EXAM: Male, 88 years old. Pelvic pain, Hx metastatic prostate cancer. TECHNIQUE: One view of the pelvis was obtained. COMPARISON: None. FINDINGS: There is a non-specific bowel gas pattern. Normal visualized soft tissue structures. Diffuse sclerotic metastasis is involving the pelvic bones. Sclerotic metastasis involving the superior-inferior pubic rami bilaterally. Sclerotic metastasis involving both visualized portions of the femurs. There is also evidence of a metastatic deposits in the visualized lumbar vertebra. Surgical clips are seen in the pelvis and compared with prior prostatectomy. 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 Electronically Signed: Edawrd Rudolph MD at 14:00 EDT ,
--- NOTE | 2023-08-23 13:36 | RAD_ITS ---
STUDY: X-RAY - ABDOMEN/PELVIS REASON FOR EXAM: Male, 88 years old. Pelvic pain. Hx metastatic prostate cancer. TECHNIQUE: Single AP view of the abdomen / pelvis. COMPARISON: None. FINDINGS: Calcific plaques at the left lung base. There is a moderate amount of colonic fecal material. Findings suggestive of a calcified gallstones in the right upper quadrant. Normal soft tissue structures. Diffuse osteoblastic metastasis. RAD/Abdomen Single View IMPRESSION: Gallstones. Marked amount of fecal material is seen in the colon. Diffuse osteoblastic metastasis. Electronically Signed: Edward Rudolph MD at 14:01 EDT ,
--- NOTE | 2023-08-23 14:44 | CHAPLAIN ---
Type of Pastoral Visit ___ Initial Visit ___ Follow-up Visit ___ On-call Visit ___ General Patient Visit ___ Spiritual Assessment ___ Family Conference ___ Bereavement ___ Rapid Response ___ Code Blue ___ Other (describe below) Pastoral Care Referral From ___ Patient ___ Family ___ Nurse ___ Physician ___ Chlorine Cell Tender ___ Billiard Table Assembler ___ Other (describe below) Sacrament/Intervention ___ Active listening ___ Anointing ___ Orthodox ___ Bereavement ___ Communion ___ Denisse exploration ___ ___ Life review ___ Prayer ___ Reconciliation ___ Sacrament of Sick ___ Supportive presence ___ Wedding ___ Other (describe below) Pastoral Comments patient is resting in bed with eyes closed but awake; pt states that he would like to rest at this time for a possible nap; offer to return another time and pt agrees with this plan
[2023-08-23] MEDS: ENZALUTAMIDE 40 MG TABLET 160 MG PO (15:52)
--- NOTE | 2023-08-23 17:13 | CASEMGMT ---
Social Work SW met with patient, , Marybeth, and sonJulio at bedside to complete initial intake assessment. SW introduced self and role. Patient confirmed demographics; family confirmed contact information. Patient confirmed code status as full code. Patient informed SW that prior to hospitalization, he was residing in home with his ; independent to complete personal care, meal prep,and some organ assembler, and transportation. Patient's assisted with financial accounting manager, medication management. Patient informed SW that he did not have an advanced directive. Upon review of medical chart, the patient has an advanced directive with sonJulio as primary. SW educated patient of [employer] insurance coverage benefits and coverage; next review date 08/26. Patient's goal is to return to prior level of functioning to care for self. SW will continue to follow to support discharge planning. KULDIP Jay
[2023-08-23] MEDS: Atorvastatin Calcium 20 MG Tablet PO (20:10)
[2023-08-23 20:27] VITALS: PULSE 85; RESP 18; O2SAT 97
[2023-08-24] MEDS: levoFLOXacin 750 MG Tablet PO (05:31)
[2023-08-24 07:23] LABS: Anion Gap 7 (5-15); BUN 13 mg/dL (7-18); BUN/Creat Ratio 18.4 RATIO (10-20); Calcium,Total 8.2 mg/dL (8.5-10.1); Chloride 95 mmol/L (98-107); Creatinine, Serum 0.71 mg/dL (0.70-1.30); EST Glomerular Filtration Rate 112 mL/min (>60); Est Glom Filt Rate - Afr Amer 136 mL/min (>60); Glucose 126 mg/dL (74-106); Potassium 4.1 mmol/L (3.5-5.1); Sodium Level 125 mmol/L (136-145)
[2023-08-24] MEDS: Aspirin 325 MG Tablet PO (08:52)
[2023-08-24] MEDS: Umeclidinium Bromide Inhaler 1 PUFF INHALATION (08:53)
[2023-08-24] MEDS: Senna/Docusate Sodium 1 Tablet PO ×2 (08:53→21:26)
[2023-08-24] MEDS: Multivitamins,Therapeutic Tablet 1 TABLET PO (08:53)
[2023-08-24 08:54] VITALS: BP 100/47; PULSE 94
[2023-08-24] MEDS: Metoprolol(XL)Succ 25 MG Tablet PO (08:54)
[2023-08-24] MEDS: Pyridoxine HCl 50 MG Tablet PO (08:54)
[2023-08-24] MEDS: Cholecalciferol (VIT D3) 25 MCG TABLET (1,000 UNITS) 50 MCG PO (08:55)
[2023-08-24] MEDS: Menthol/Lanolin/Calamine/Znox 113 GM Tube 1 APPLIC TOPICAL ×2 (08:58→21:26)
[2023-08-24 16:00] VITALS: BP 100/47; PULSE 94; RESP 16; TEMP 37.3; O2SAT 94
[2023-08-24] MEDS: ENZALUTAMIDE 40 MG TABLET 160 MG PO (16:04)
[2023-08-24 17:32] VITALS: PULSE 84; RESP 16; O2SAT 98
[2023-08-24] MEDS: Atorvastatin Calcium 20 MG Tablet PO (21:26)
[2023-08-24] MEDS: Acetaminophen 500 MG Tablet 1000 MG PO (22:12)
[2023-08-25 05:45] VITALS: PULSE 72; O2SAT 95
[2023-08-25] MEDS: levoFLOXacin 750 MG Tablet PO (05:46)
[2023-08-25 06:57] LABS: Anion Gap 7 (5-15); BUN 22 mg/dL (7-18); BUN/Creat Ratio 22.5 RATIO (10-20); Calcium,Total 7.9 mg/dL (8.5-10.1); Chloride 94 mmol/L (98-107); Creatinine, Serum 0.98 mg/dL (0.70-1.30); EST Glomerular Filtration Rate 77 mL/min (>60); Est Glom Filt Rate - Afr Amer 94 mL/min (>60); Estimated Creatinine Clearance 63.18 ml/min; Glucose 110 mg/dL (74-106); Potassium 3.8 mmol/L (3.5-5.1); Sodium Level 124 mmol/L (136-145)
--- NOTE | 2023-08-25 08:00 | NURSING ---
Spouse calls reporting concerns that resident will be discharged at the beginning of next week after receiving a letter from [facility] that coverage will stop. She thinks resident is too weak and is concerned that she will not be able to assist him resulting in both of them falling. She also notes resident's appetite is poor and does not think family is allowed to bring in food d/t the order for the fluid restriction. Informed spouse family may bring in food as that will not interfere w/ the fluid restriction but they cannot give him any fluids without speaking to nursing. Encouraged to speak w/ SW Saturday and call at 9am or later. She verbalizes understanding and expresses appreciation.
[2023-08-25] MEDS: Aspirin 325 MG Tablet PO (08:03)
[2023-08-25] MEDS: Multivitamins,Therapeutic Tablet 1 TABLET PO (08:03)
[2023-08-25 09:48] VITALS: BP 110/47; PULSE 75
[2023-08-25] MEDS: Umeclidinium Bromide Inhaler 1 PUFF INHALATION (09:48)
[2023-08-25] MEDS: Metoprolol(XL)Succ 25 MG Tablet PO (09:48)
[2023-08-25] MEDS: Cholecalciferol (VIT D3) 25 MCG TABLET (1,000 UNITS) 50 MCG PO (09:48)
[2023-08-25] MEDS: Senna/Docusate Sodium 1 Tablet PO ×2 (09:48→20:59)
[2023-08-25] MEDS: Pyridoxine HCl 50 MG Tablet PO (09:48)
[2023-08-25] MEDS: Menthol/Lanolin/Calamine/Znox 113 GM Tube 1 APPLIC TOPICAL ×2 (10:53→21:03)
[2023-08-25] MEDS: 0.9% Normal Saline (1000mL) 1,000 ML 60 ML IV (12:52)
--- NOTE | 2023-08-25 13:36 | NURSING ---
New order received for IV fluids. SL placed in right wrist, patient tolerated well. 0.9% Sodium Chloride running at 60mL/hour. Will continue to monitor.
[2023-08-25 15:08] VITALS: BP 110/47; PULSE 75; RESP 16; TEMP 36.6; O2SAT 97
[2023-08-25] MEDS: ENZALUTAMIDE 40 MG TABLET 160 MG PO (17:53)
--- NOTE | 2023-08-25 20:23 | NURSING ---
Assisted resident to the bathroom using wheeled walker. Gait unsteady near the doorway of the bathroom and assistance of this nurse provided to promote stability. Will continue to monitor.
--- NOTE | 2023-08-25 20:32 | NURSING ---
Left vm for SW after phone conversation w/ spouse last night re: concerns of insurance and length of stay.
[2023-08-25] MEDS: Atorvastatin Calcium 20 MG Tablet PO (20:59)
[2023-08-25] MEDS: Acetaminophen 500 MG Tablet 1000 MG PO (20:59)
--- NOTE | 2023-08-25 21:45 | NURSING ---
Daughter, Monica, calls questioning if family or TCU staff will take resident down for his appointment w/ Dr. Grove tomorrow. Informed Monica family can take resident to appointment via w/c and notify staff when they will be leaving and upon return to the unit. She verbalizes understanding.
[2023-08-26] MEDS: 0.9% Normal Saline (1000mL) 1,000 ML 60 ML IV (05:26)
[2023-08-26] MEDS: levoFLOXacin 750 MG Tablet PO (05:27)
[2023-08-26 06:48] LABS: Anion Gap 6 (5-15); BUN 22 mg/dL (7-18); BUN/Creat Ratio 28.1 RATIO (10-20); Calcium,Total 8.2 mg/dL (8.5-10.1); Chloride 97 mmol/L (98-107); Creatinine, Serum 0.78 mg/dL (0.70-1.30); EST Glomerular Filtration Rate 100 mL/min (>60); Est Glom Filt Rate - Afr Amer 121 mL/min (>60); Glucose 104 mg/dL (74-106); Potassium 3.8 mmol/L (3.5-5.1); Sodium Level 126 mmol/L (136-145)
[2023-08-26 08:49] VITALS: BP 132/53; PULSE 86; RESP 16; TEMP 37.2
[2023-08-26 08:51] VITALS: PULSE 86
[2023-08-26] MEDS: Senna/Docusate Sodium 1 Tablet PO ×2 (08:51→21:32)
[2023-08-26] MEDS: Aspirin 325 MG Tablet PO (08:51)
[2023-08-26] MEDS: Metoprolol(XL)Succ 25 MG Tablet PO (08:51)
[2023-08-26] MEDS: Multivitamins,Therapeutic Tablet 1 TABLET PO (08:51)
[2023-08-26] MEDS: Pyridoxine HCl 50 MG Tablet PO (08:52)
[2023-08-26] MEDS: Cholecalciferol (VIT D3) 25 MCG TABLET (1,000 UNITS) 50 MCG PO (08:52)
[2023-08-26] MEDS: Menthol/Lanolin/Calamine/Znox 113 GM Tube 1 APPLIC TOPICAL ×2 (08:52→21:33)
[2023-08-26] MEDS: Umeclidinium Bromide Inhaler 1 PUFF INHALATION (08:52)
--- NOTE | 2023-08-26 09:05 | CASEMGMT ---
Social Work MARTINA received a call from patient's , Marybeth inquiring about insurance coverage. MARTINA reviewed [employer] coverage services with patient's . Marybeth informed MARTINA that she is concerned about appointments scheduled for patient. Marybeth inquired about who to speak with in regards to appointments arranged for patient follow up. MARTINA informed Marybeth to contact Physician's office. Marybeth expressed concerns for patient discharge home due to decline in medical condition. Marybeth informed MARTINA that she will need assistance to care for patient in home. MARTINA discussed home health care with . Marybeth requested update once insurance coverage is clinical review is completed. KULDIP Jay
--- NOTE | 2023-08-26 10:25 | NURSING ---
pt off unit for appt with Dr Grove, family at side
--- NOTE | 2023-08-26 11:04 | NURSING ---
pt returned from appt with orders to DC Xtandi, refer to medical oncology, Dr Henderson for opinion regarding prostate CA. follow up appt w/[place] on 10/28/23. Xtandi bottle returned to & daughter at this time.
--- NOTE | 2023-08-26 11:32 | NURSING ---
Offered covid vaccine, VIS provided. Patient refuses at this time.
--- NOTE | 2023-08-26 12:33 | NURSING ---
Addendum entered by Katherine Hugo 08/27/23 15:31: Received callback from Dr. Henderson's office, appointment set for September 01 @0830. Appt chart updated and informed pt, who states he will update his . Original Note: spoke with Dr Henderson office regarding referral by Dr Grove for prostate CA options, faxed H&P along with Dr Grove written orders per oncology request before they will set up appt. awaiting return call.
[2023-08-26 15:34] VITALS: PULSE 72; RESP 16; O2SAT 98
[2023-08-26] MEDS: Acetaminophen 500 MG Tablet 1000 MG PO (21:32)
[2023-08-26] MEDS: Atorvastatin Calcium 20 MG Tablet PO (21:32)
[2023-08-27] MEDS: levoFLOXacin 750 MG Tablet PO (05:59)
[2023-08-27 06:37] LABS: Anion Gap 5 (5-15); BUN 18 mg/dL (7-18); BUN/Creat Ratio 23.7 RATIO (10-20); Chloride 98 mmol/L (98-107); Creatinine, Serum 0.76 mg/dL (0.70-1.30); EST Glomerular Filtration Rate 103 mL/min (>60); Est Glom Filt Rate - Afr Amer 125 mL/min (>60); Glucose 102 mg/dL (74-106); Potassium 3.9 mmol/L (3.5-5.1); Sodium Level 128 mmol/L (136-145)
[2023-08-27] MEDS: Aspirin 325 MG Tablet PO (08:38)
[2023-08-27 08:39] VITALS: BP 113/47; PULSE 82
[2023-08-27] MEDS: Cholecalciferol (VIT D3) 25 MCG TABLET (1,000 UNITS) 50 MCG PO (08:39)
[2023-08-27] MEDS: Umeclidinium Bromide Inhaler 1 PUFF INHALATION (08:39)
[2023-08-27] MEDS: Multivitamins,Therapeutic Tablet 1 TABLET PO (08:39)
[2023-08-27] MEDS: Metoprolol(XL)Succ 25 MG Tablet PO (08:39)
[2023-08-27] MEDS: Senna/Docusate Sodium 1 Tablet PO ×2 (08:40→20:14)
[2023-08-27] MEDS: Pyridoxine HCl 50 MG Tablet PO (08:40)
[2023-08-27] MEDS: Menthol/Lanolin/Calamine/Znox 113 GM Tube 1 APPLIC TOPICAL ×2 (08:42→20:15)
--- NOTE | 2023-08-27 10:48 | NURSING ---
Last documented BM 08/23/23. BS normoactive x 4, some tenderness when palpated. Agreeable to taking Mag Citrate after therapy sessions.
[2023-08-27 11:41] VITALS: BMI 27.9
[2023-08-27 14:00] VITALS: BP 113/47; PULSE 82; RESP 16; TEMP 36.3; O2SAT 97
[2023-08-27] MEDS: Magnesium Citrate 300 ML PO (14:46)
--- NOTE | 2023-08-27 15:09 | CASEMGMT ---
Social Work SW met with patient at bedside to complete MDS. Patient's BIM () and PhQ-2 (00) SW informed patient of [employer] insurance coverage and next review date 09/06/2023. SW attempted to contact patient's , Remi; no answer or voicemail. SW contacted patient's son, Julio Augustine to notify of insurance next review date. Julio Augustine. informed SW that he will provide update to patient's , Marybeth. SW will continue to follow to support discharge planning. KULDIP Jay
--- NOTE | 2023-08-27 15:27 | CHAPLAIN ---
Type of Pastoral Visit _x__ Initial Visit ___ Follow-up Visit ___ On-call Visit ___ General Patient Visit ___ Spiritual Assessment ___ Family Conference ___ Bereavement ___ Rapid Response ___ Code Blue ___ Other (describe below) Pastoral Care Referral From _x__ Patient ___ Family ___ Nurse ___ Physician ___ Forensic Manager ___ Group Manager ___ Other (describe below) Sacrament/Intervention _x__ Active listening ___ Anointing ___ Mandaeism ___ Bereavement ___ Communion _x__ Denisse exploration ___ _x__ Life review _x__ Prayer ___ Reconciliation ___ Sacrament of Sick _x__ Supportive presence ___ Wedding ___ Other (describe below) Pastoral Comments patient is sitting in chair after some therapy; pt admits to being tired but will have the water quality analyst come in and sit with him for a brief time is accepted; pt talks about his frustration of being here instead of at home; pt admits to feelings of being overwhelmed; pt is asked about his coping skills and other ways to bring down his anxiety levels; pt is a member of local [employer] but is also encouraged to develop his denisse life at this time; pt is open to prayer and to visits in the future if kept brief
[2023-08-27 18:22] VITALS: RESP 16; O2SAT 97
[2023-08-27] MEDS: Atorvastatin Calcium 20 MG Tablet PO (20:14)
[2023-08-27] MEDS: Acetaminophen 500 MG Tablet 1000 MG PO (20:49)
[2023-08-28 05:39] LABS: Hematocrit 28.8 % (40-54); Hemoglobin 9.1 g/dL (13.0-16.5); Mean Corp Hgb Conc 31.6 g/dL (32-36); Mean Corpuscular Volume 91.7 fL (80-94); Mean Platelet Vol. 8.2 fl (6.2-12.0); POSITIVE COUNT YES; POSITIVE MORPHOLOGY YES; Platelet Count 191 K/mm3 (150-450); RBC Distribution Width SD 56.1 fl (35.1-43.9); Red Blood Count 3.14 M/mm3 (4.6-6.2); White Blood Count 10.5 K/mm3 (4.4-11.0)
[2023-08-28 05:57] LABS: Differential Indicated MANUAL DIFF
[2023-08-28 06:05] LABS: Anion Gap 5 (5-15); BUN 16 mg/dL (7-18); BUN/Creat Ratio 22.1 RATIO (10-20); Calcium,Total 8.1 mg/dL (8.5-10.1); Chloride 98 mmol/L (98-107); Creatinine, Serum 0.72 mg/dL (0.70-1.30); EST Glomerular Filtration Rate 109 mL/min (>60); Est Glom Filt Rate - Afr Amer 132 mL/min (>60); Estimated Creatinine Clearance 77.25 ml/min; Glucose 107 mg/dL (74-106); Potassium 4.3 mmol/L (3.5-5.1); Sodium Level 127 mmol/L (136-145)
[2023-08-28 07:14] LABS: Basophil 1 % (0-1); Lymphocyte 28 % (19-41); Monocyte 9 % (0-10); Neutrophil-Band 3 % (0-5); Neutrophil-Segmented 59 % (47-70); Platelet Estimate ADEQUATE (ADEQ); Total Cells Counted 100 (MANUAL DIFF)
[2023-08-28 07:16] LABS: Absolute Neutrophil Count 6.5 X10^3/uL (2.0-7.7)
--- NOTE | 2023-08-28 08:09 | NURSING ---
Systems Lead Note; MDS for 08/27/2023 Complete
[2023-08-28] MEDS: Aspirin 325 MG Tablet PO (08:20)
[2023-08-28] MEDS: Umeclidinium Bromide Inhaler 1 PUFF INHALATION (08:20)
[2023-08-28] MEDS: Multivitamins,Therapeutic Tablet 1 TABLET PO (08:20)
[2023-08-28] MEDS: Senna/Docusate Sodium 1 Tablet PO ×2 (08:21→20:00)
[2023-08-28 08:22] VITALS: BP 125/46; PULSE 83
[2023-08-28] MEDS: Pyridoxine HCl 50 MG Tablet PO (08:22)
[2023-08-28] MEDS: Metoprolol(XL)Succ 25 MG Tablet PO (08:22)
[2023-08-28] MEDS: Cholecalciferol (VIT D3) 25 MCG TABLET (1,000 UNITS) 50 MCG PO (08:22)
[2023-08-28] MEDS: Menthol/Lanolin/Calamine/Znox 113 GM Tube 1 APPLIC TOPICAL ×2 (08:31→20:01)
--- NOTE | 2023-08-28 09:24 | CASEMGMT ---
Social Work- Care Planning IDT met with patient, daughter, Monica, and , Remi at bedside to complete care planning. Discussed patient progress with therapy (PT/OT), dietary, and activities. Patient is on a regular diet. Patient declines any ensures or protein supplements. Patient is progressing with therapy contact guard/SBA. Patient has dizziness with therapy. Therapy would like to continue rehabilitation to assist with endurance. Patient went up 5 steps contact guard. Patient is able to do upper body dressing and lower extremity patient requires 1 person assist. Therapy assisting with identifying adaptable equipment to assist with dressing, toileting, bathing. Therapy is recommending in home care and family assistance to are for patient at this time. Family training is being recommended. MARTINA educated patient and family on [employer] insurance coverage and next review date: 09/06/2023. MARTINA discussed home health care services with patient and . Family is agreeable to home health care at discharge, if recommended Social will continue to follow to support discharge planning. KULDIP Jay
[2023-08-28] MEDS: Tuberculin,Purif.prot.deriv. 50 TU/ML Vial 0.1 ML ID (09:37)
[2023-08-28] MEDS: Lactulose 20 GM/30 ML UDC PO (13:37)
--- NOTE | 2023-08-28 14:16 | NURSING ---
Addendum entered by Faiza Lucero 08/28/23 19:30: Yovani had several BMs this evening and reports feeling much better. No further complaints at this time. Original Note: When asking how patient feels today, he reports that he wishes someone would just pull the plug on me. When asked why he says this, he reports his stomach is cramping and painful and that he's miserable. This nurse assesses if he is feeling like harming self or not wanting to live and he reports no, I'm just so miserable and want this feeling to go away. Reassurance that we are trying something different to help his bowels move and he reports Dr. Trejo had been in to talk to him about different options for his bowels. Bowel sounds hyperactive in all quadrants and PRN lactulose administered.
[2023-08-28 14:19] VITALS: BP 137/51; PULSE 79; RESP 16; TEMP 37.1; O2SAT 96
[2023-08-28] MEDS: Atorvastatin Calcium 20 MG Tablet PO (20:00)
[2023-08-29] MEDS: Umeclidinium Bromide Inhaler 1 PUFF INHALATION (08:16)
[2023-08-29] MEDS: Aspirin 325 MG Tablet PO (08:17)
[2023-08-29] MEDS: Senna/Docusate Sodium 1 Tablet PO ×2 (08:17→20:52)
[2023-08-29] MEDS: Pyridoxine HCl 50 MG Tablet PO (08:17)
[2023-08-29] MEDS: Multivitamins,Therapeutic Tablet 1 TABLET PO (08:17)
[2023-08-29] MEDS: Menthol/Lanolin/Calamine/Znox 113 GM Tube 1 APPLIC TOPICAL ×2 (08:17→20:52)
[2023-08-29] MEDS: Cholecalciferol (VIT D3) 25 MCG TABLET (1,000 UNITS) 50 MCG PO (08:17)
[2023-08-29 08:30] VITALS: BP 117/48; PULSE 80; RESP 16; TEMP 36.4; O2SAT 93
[2023-08-29 09:57] VITALS: PULSE 80
[2023-08-29] MEDS: Metoprolol(XL)Succ 25 MG Tablet PO (09:57)
[2023-08-29] MEDS: Atorvastatin Calcium 20 MG Tablet PO (20:52)
[2023-08-29 20:54] VITALS: PULSE 82; RESP 16; O2SAT 95
[2023-08-30 05:51] VITALS: PULSE 82; RESP 16; O2SAT 95
[2023-08-30 08:42] VITALS: BP 117/46; PULSE 84
[2023-08-30] MEDS: Umeclidinium Bromide Inhaler 1 PUFF INHALATION (08:42)
[2023-08-30] MEDS: Metoprolol(XL)Succ 25 MG Tablet PO (08:42)
[2023-08-30] MEDS: Senna/Docusate Sodium 1 Tablet PO (08:42)
[2023-08-30] MEDS: Aspirin 325 MG Tablet PO (08:42)
[2023-08-30] MEDS: Multivitamins,Therapeutic Tablet 1 TABLET PO (08:42)
[2023-08-30] MEDS: Pyridoxine HCl 50 MG Tablet PO (08:43)
[2023-08-30] MEDS: Cholecalciferol (VIT D3) 25 MCG TABLET (1,000 UNITS) 50 MCG PO (08:43)
[2023-08-30] MEDS: Menthol/Lanolin/Calamine/Znox 113 GM Tube 1 APPLIC TOPICAL ×2 (08:43→21:26)
[2023-08-30] MEDS: Acetaminophen 500 MG Tablet 1000 MG PO ×2 (10:21→21:23)
[2023-08-30] MEDS: Ondansetron ODT 4 MG Tablet 8 MG PO (12:56)
--- NOTE | 2023-08-30 13:20 | RAD_ITS ---
STUDY: X-RAY - ABDOMEN/PELVIS REASON FOR EXAM: Male, 88 years old. Constipation TECHNIQUE: Single AP view of the abdomen / pelvis. COMPARISON: Comparison is made with prior study dated August 23, 2023. FINDINGS: Stable calcific linear plaques at the left lung base. Moderate amount of fecal material is seen in the colon. Rounded calcifications are seen in the right upper quadrant most likely representing either gallstones or calculi in the upper pole of the right kidney. Surgical clips are seen in the pelvis most likely secondary to prior prostatectomy. Diffuse bony metastasis. RAD/Abdomen Single View IMPRESSION: Moderate amount of fecal material is seen in the colon. Diffuse osteoblastic metastasis. Electronically Signed: Edward Rudolph MD at 13:43 EDT ,
[2023-08-30 13:26] VITALS: BP 114/51; PULSE 82; RESP 18; TEMP 36.8; O2SAT 95
[2023-08-30] MEDS: Lactulose 20 GM/30 ML UDC 200 GM RC (15:52)
[2023-08-30] MEDS: Polyethylene Glycol 3350 17 GM PACKET PO (16:22)
[2023-08-30] MEDS: Magnesium Citrate 300 ML PO (16:22)
[2023-08-30] MEDS: Atorvastatin Calcium 20 MG Tablet PO (21:23)
[2023-08-30] MEDS: Senna/Docusate Sodium 1 Tablet 2 TABLET PO (21:23)
[2023-08-31 08:53] VITALS: BP 121/50; PULSE 87; RESP 18; TEMP 36.6; O2SAT 95
[2023-08-31] MEDS: Aspirin 325 MG Tablet PO (08:55)
[2023-08-31] MEDS: Multivitamins,Therapeutic Tablet 1 TABLET PO (08:55)
[2023-08-31 08:56] VITALS: PULSE 87
[2023-08-31] MEDS: Senna/Docusate Sodium 1 Tablet 2 TABLET PO ×2 (08:56→22:36)
[2023-08-31] MEDS: Cholecalciferol (VIT D3) 25 MCG TABLET (1,000 UNITS) 50 MCG PO (08:56)
[2023-08-31] MEDS: Polyethylene Glycol 3350 17 GM PACKET PO (08:56)
[2023-08-31] MEDS: Metoprolol(XL)Succ 25 MG Tablet PO (08:56)
[2023-08-31] MEDS: Umeclidinium Bromide Inhaler 1 PUFF INHALATION (08:57)
[2023-08-31] MEDS: Pyridoxine HCl 50 MG Tablet PO (08:57)
[2023-08-31] MEDS: Menthol/Lanolin/Calamine/Znox 113 GM Tube 1 APPLIC TOPICAL ×2 (08:58→22:37)
[2023-08-31 13:20] VITALS: RESP 16; O2SAT 95
--- NOTE | 2023-08-31 14:35 | NURSING ---
, Marybeth very concerned regarding cancer, what their options are if he is unable to go home, she is unable to care for him. Message left with washhouse worker to call at home per request. does not want to speak about this stuff in front of at this time.
[2023-08-31] MEDS: Atorvastatin Calcium 20 MG Tablet PO (22:37)
--- NOTE | 2023-09-01 05:05 | NURSING ---
Patient refusing RTN tylenol, states no longer needs routinely. Written communication left for Dr. Trejo requesting med be changed to PRN per pt. preference
[2023-09-01] MEDS: Aspirin 325 MG Tablet PO (08:00)
[2023-09-01] MEDS: Multivitamins,Therapeutic Tablet 1 TABLET PO (08:01)
[2023-09-01] MEDS: Menthol/Lanolin/Calamine/Znox 113 GM Tube 1 APPLIC TOPICAL ×2 (08:01→20:40)
[2023-09-01] MEDS: Umeclidinium Bromide Inhaler 1 PUFF INHALATION (08:02)
[2023-09-01] MEDS: Polyethylene Glycol 3350 17 GM PACKET PO ×2 (08:03→20:27)
[2023-09-01] MEDS: Senna/Docusate Sodium 1 Tablet 2 TABLET PO ×2 (08:03→20:28)
[2023-09-01 08:04] VITALS: BP 123/46; PULSE 85
[2023-09-01] MEDS: Cholecalciferol (VIT D3) 25 MCG TABLET (1,000 UNITS) 50 MCG PO (08:04)
[2023-09-01] MEDS: Metoprolol(XL)Succ 25 MG Tablet PO (08:04)
[2023-09-01] MEDS: Pyridoxine HCl 50 MG Tablet PO (08:05)
[2023-09-01 08:13] VITALS: BP 123/46; PULSE 85
[2023-09-01 15:21] VITALS: BP 116/47; PULSE 76; RESP 16; TEMP 35.9; O2SAT 97
[2023-09-01] MEDS: Atorvastatin Calcium 20 MG Tablet PO (20:27)
[2023-09-01] MEDS: Lactulose 20 GM/30 ML UDC PO (20:27)
[2023-09-01 21:00] VITALS: PULSE 76; RESP 18; O2SAT 96
--- NOTE | 2023-09-02 05:11 | NURSING ---
patient fatigues easily, gait unsteady with ambulation. Dx: primary malignant neoplasm of prostate with mets to bone. Written communication left for Dr. Trejo requesting if palliative care appropriate at this time.
[2023-09-02] MEDS: Umeclidinium Bromide Inhaler 1 PUFF INHALATION (08:10)
[2023-09-02] MEDS: Menthol/Lanolin/Calamine/Znox 113 GM Tube 1 APPLIC TOPICAL ×2 (08:13→20:43)
[2023-09-02] MEDS: Multivitamins,Therapeutic Tablet 1 TABLET PO (08:13)
[2023-09-02] MEDS: Aspirin 325 MG Tablet PO (08:13)
[2023-09-02] MEDS: Cholecalciferol (VIT D3) 25 MCG TABLET (1,000 UNITS) 50 MCG PO (08:14)
[2023-09-02] MEDS: Pyridoxine HCl 50 MG Tablet PO (08:15)
[2023-09-02 08:20] VITALS: BP 98/42; PULSE 93
--- NOTE | 2023-09-02 08:31 | NURSING ---
Transported patient to appt with Dr. Henderson via . Daughter and met him for appt.
--- NOTE | 2023-09-02 08:56 | NURSING ---
PT LEFT FLOOR BY WHEEL CHAIR AT 0825 FOR APPOINTMENT WITH . FAMILY TO MEET PT THERE.
[2023-09-02 10:24] VITALS: BP 110/50; PULSE 91
[2023-09-02] MEDS: Metoprolol(XL)Succ 25 MG Tablet PO (10:24)
[2023-09-02 10:26] VITALS: BP 110/50; PULSE 91
--- NOTE | 2023-09-02 10:38 | NURSING ---
PT RETURNED TO FLOOR AT [address] WEINER. SEE NEW ORDERS.
--- NOTE | 2023-09-02 12:23 | MDS.RN ---
Information for the MDS was obtained from review of the clinical record, interview of resident, staff, and direct observation of resident?s care.
[2023-09-02] MEDS: Citalopram 10 MG Tablet PO (14:43)
[2023-09-02 14:58] VITALS: BP 116/49; PULSE 74; RESP 18; TEMP 36.2; O2SAT 95
[2023-09-02 20:30] VITALS: PULSE 86; O2SAT 95
[2023-09-02] MEDS: Atorvastatin Calcium 20 MG Tablet PO (20:44)
[2023-09-02] MEDS: Senna/Docusate Sodium 1 Tablet 2 TABLET PO (20:44)
[2023-09-03] MEDS: Iron Polysaccharide Complex 150 MG CAPSULE PO (08:23)
[2023-09-03] MEDS: Pyridoxine HCl 50 MG Tablet PO (08:23)
[2023-09-03] MEDS: Citalopram 10 MG Tablet PO (08:24)
[2023-09-03] MEDS: Multivitamins,Therapeutic Tablet 1 TABLET PO (08:24)
[2023-09-03] MEDS: dexAMETHasone 4 MG Tablet PO (08:24)
[2023-09-03] MEDS: Polyethylene Glycol 3350 17 GM PACKET PO (08:24)
[2023-09-03] MEDS: Aspirin 325 MG Tablet PO (08:24)
[2023-09-03 08:25] VITALS: BP 110/47; PULSE 73
[2023-09-03] MEDS: Cholecalciferol (VIT D3) 25 MCG TABLET (1,000 UNITS) 50 MCG PO (08:25)
[2023-09-03] MEDS: Senna/Docusate Sodium 1 Tablet 2 TABLET PO ×2 (08:25→21:35)
[2023-09-03] MEDS: Metoprolol(XL)Succ 25 MG Tablet PO (08:25)
[2023-09-03] MEDS: Umeclidinium Bromide Inhaler 1 PUFF INHALATION (08:27)
[2023-09-03] MEDS: Menthol/Lanolin/Calamine/Znox 113 GM Tube 1 APPLIC TOPICAL ×2 (08:29→21:36)
--- NOTE | 2023-09-03 09:42 | NURSING ---
Call from cancer center to have patient come down for lab draw for Dr. Henderson. [facility] .
[2023-09-03 10:41] VITALS: BP 110/47; PULSE 73; RESP 16; TEMP 36.5; O2SAT 93
[2023-09-03 11:27] VITALS: BMI 28.1
[2023-09-03] MEDS: Ondansetron ODT 4 MG Tablet 8 MG PO (17:26)
[2023-09-03 20:18] VITALS: PULSE 73; RESP 16; O2SAT 97
[2023-09-03] MEDS: Atorvastatin Calcium 20 MG Tablet PO (21:35)
[2023-09-03] MEDS: Acetaminophen 500 MG Tablet 1000 MG PO (21:39)
[2023-09-04 05:56] LABS: Hematocrit 25.6 % (40-54); Hemoglobin 8.1 g/dL (13.0-16.5); Mean Corp Hgb Conc 31.6 g/dL (32-36); Mean Corpuscular Hgb 28.8 pg (27.0-32.0); Mean Corpuscular Volume 91.1 fL (80-94); POSITIVE COUNT YES; POSITIVE DIFFERENTIAL YES; POSITIVE MORPHOLOGY YES; Platelet Count 196 K/mm3 (150-450); RBC Distribution Width SD 56.4 fl (35.1-43.9); Red Blood Count 2.81 M/mm3 (4.6-6.2); White Blood Count 14.9 K/mm3 (4.4-11.0)
[2023-09-04 06:00] LABS: Differential Indicated MANUAL DIFF
[2023-09-04 06:10] LABS: Anion Gap 7 (5-15); BUN 17 mg/dL (7-18); BUN/Creat Ratio 23.9 RATIO (10-20); Calcium,Total 7.7 mg/dL (8.5-10.1); Chloride 92 mmol/L (98-107); Creatinine, Serum 0.71 mg/dL (0.70-1.30); EST Glomerular Filtration Rate 111 mL/min (>60); Est Glom Filt Rate - Afr Amer 135 mL/min (>60); Estimated Creatinine Clearance 77.53 ml/min; Glucose 108 mg/dL (74-106); Potassium 4.7 mmol/L (3.5-5.1); Sodium Level 124 mmol/L (136-145)
[2023-09-04 07:51] LABS: Lymphocyte 34 % (19-41); Metamyelocyte 6 % (0-1); Monocyte 5 % (0-10); Myelocyte 5 % (0-0); Neutrophil-Band 3 % (0-5); Neutrophil-Segmented 46 % (47-70); Promyelocyte 1 % (0-0); Total Cells Counted 100 (MANUAL DIFF)
[2023-09-04 07:55] LABS: Platelet Estimate ADEQUATE (ADEQ)
[2023-09-04 07:57] LABS: Red Cell Morphology NORM C+C NORMAL (NORM C&C)
[2023-09-04 08:01] LABS: Absolute Neutrophil Count 9.3 X10^3/uL (2.0-7.7)
[2023-09-04] MEDS: Citalopram 10 MG Tablet PO (09:35)
[2023-09-04] MEDS: Cholecalciferol (VIT D3) 25 MCG TABLET (1,000 UNITS) 50 MCG PO (09:35)
[2023-09-04] MEDS: Iron Polysaccharide Complex 150 MG CAPSULE PO (09:36)
[2023-09-04] MEDS: Aspirin 325 MG Tablet PO (09:36)
[2023-09-04] MEDS: Multivitamins,Therapeutic Tablet 1 TABLET PO (09:36)
[2023-09-04] MEDS: dexAMETHasone 4 MG Tablet PO (09:36)
[2023-09-04] MEDS: Menthol/Lanolin/Calamine/Znox 113 GM Tube 1 APPLIC TOPICAL ×2 (09:37→20:01)
[2023-09-04] MEDS: Senna/Docusate Sodium 1 Tablet 2 TABLET PO ×2 (09:37→20:02)
[2023-09-04] MEDS: Pyridoxine HCl 50 MG Tablet PO (09:38)
[2023-09-04] MEDS: Polyethylene Glycol 3350 17 GM PACKET PO ×2 (09:40→20:00)
[2023-09-04 09:45] VITALS: BP 111/49; PULSE 92
[2023-09-04] MEDS: Metoprolol(XL)Succ 25 MG Tablet PO (09:45)
[2023-09-04 09:57] VITALS: BP 111/49; PULSE 90; RESP 16; TEMP 36.6; O2SAT 92
[2023-09-04 09:59] VITALS: PULSE 90; RESP 16; O2SAT 92
[2023-09-04 13:53] VITALS: BP 124/49; PULSE 79; RESP 16; TEMP 36.3; O2SAT 93
[2023-09-04] MEDS: Umeclidinium Bromide Inhaler 1 PUFF INHALATION (13:59)
--- NOTE | 2023-09-04 16:11 | CASEMGMT ---
Social Work Multiple conversations with pt , daughter and pt today. Pt's expressing concerns that she cannot care for pt at home. Pt will need to be completely independent if he were to return home and it is uncertain if pt will be able to regain this level of independence. SW offered for and dgt to attend family training to see how pt is functioning. Family training set with therapy for at 1000. Pt's disclosed financial concerns with SW. Phone call to pt insurance. [employer] insurance SNF benefit covers days 1-20 at 100%, days 21-45 have a $120/day copay, days 46-100 covered at 100%. SW informed pt's and dgt to this. does not feel she can afford the copays. Medicaid discussed and pt's is agreeable to apply for Medicaid. SW explained that TCU does not accept Medicaid and therefore pt would need to be moved to a Medicaid accepting facility for continued skilled stay. Pt would like to meet with Shoshana from [facility] to discuss Medicaid application. Shoshana notified and appointment set for at 1045. aware and agreeable. Family educated that next review date with insurance is 09/05 and continue stay is not guaranteed. A list of SNF providers including quality and resource use data and consistent with the patient?s preferred geographic region, medical needs, and insurance network were provided from the [employer] Guide. Per , preferred provider is [facility]. Referral made to [facility]. [facility] can accept pt pending assessment for Medicaid. MARTINA spoke with pt and spouse regarding physician request for Palliative Medicine referral. Pt and jointly denied need or desire for Palliative medicine. No referral made. Phone call to pt and updated on this, stating she did not mean [facility] but really wants [facility]. Referral sent to [facility]. SW will await determination of acceptance. Plan[facility] Family Training , [facility] . Pt's copay will start on day 21 which is 09/08. MARTINA will reassess discharge plan after these meetings. CHRISTOPHER Gilbert
[2023-09-04] MEDS: Lactulose 20 GM/30 ML UDC PO (20:00)
[2023-09-04] MEDS: Acetaminophen 500 MG Tablet 1000 MG PO (20:01)
[2023-09-04] MEDS: Atorvastatin Calcium 20 MG Tablet PO (20:01)
[2023-09-05] MEDS: Acetaminophen 500 MG Tablet 1000 MG PO (04:05)
[2023-09-05] MEDS: Umeclidinium Bromide Inhaler 1 PUFF INHALATION (09:19)
[2023-09-05 09:21] VITALS: PULSE 86
[2023-09-05] MEDS: Multivitamins,Therapeutic Tablet 1 TABLET PO (09:21)
[2023-09-05] MEDS: Pyridoxine HCl 50 MG Tablet PO (09:21)
[2023-09-05] MEDS: Iron Polysaccharide Complex 150 MG CAPSULE PO (09:21)
[2023-09-05] MEDS: Cholecalciferol (VIT D3) 25 MCG TABLET (1,000 UNITS) 50 MCG PO (09:21)
[2023-09-05] MEDS: Aspirin 325 MG Tablet PO (09:21)
[2023-09-05] MEDS: Metoprolol(XL)Succ 25 MG Tablet PO (09:21)
[2023-09-05] MEDS: dexAMETHasone 4 MG Tablet PO (09:22)
[2023-09-05] MEDS: Citalopram 10 MG Tablet PO (09:22)
[2023-09-05] MEDS: Menthol/Lanolin/Calamine/Znox 113 GM Tube 1 APPLIC TOPICAL ×2 (09:22→20:34)
[2023-09-05 10:00] VITALS: BP 101/51; PULSE 86; RESP 16; TEMP 36.5; O2SAT 94
[2023-09-05 15:31] LABS: Pathologist Review Reviewed
[2023-09-05] MEDS: Ondansetron ODT 4 MG Tablet 8 MG PO (15:39)
--- NOTE | 2023-09-05 16:32 | CASEMGMT ---
Social Work SW met with pt's and daughter and discussed discharge plan. Pt's does not feel pt can return home at this time. Pt's is concerned with financial burden of copay and has spoken with Shoshana at [facility] and applied for Medicaid. Pt's would like pt to transfer to F on Saturday (when copay days begin). First choice is [facility] and they are unable to accept as they have no beds. SW assisted in reviewing list. Second choice is [facility]. Referral made and they are able to accept. NRD with insurance is tomorrow. Desirae in admissions with speak with [employer] regarding more skilled time for pt and transferring precert from TCU to [facility] on Saturday. SW will continue to follow. Plan: [facility], skilled level of care (pending insurance approval) on Saturday CHRISTOPHER Gilbert
--- NOTE | 2023-09-05 19:26 | DS.PCM_ITS ---
Providers Date of Admission: 08/20/23 Primary Care Physician: ABHILASH Wood Consultations 08/20/23 16:55 Consult: Urology Routine Consulting Provider: Nhan Grove Reason for Consult: Metastatic prostate cancer. EMERGENT Consult: No MD Notified: Yes Date Notified: 08/20/23 Time Notified: 16:55 Method of Notification: Answering Service Reason For Visit: FALL, PNA Diagnosis Discharge Diagnosis (1) Debility: Status: Acute Code(s): R53.81 - Other malaise (2) Fall: Status: Acute Code(s): W19.XXXA - Unspecified fall, initial encounter (3) Closed head injury: Status: Acute Code(s): S09.90XA - Unspecified injury of head, initial encounter (4) Left lower lobe pneumonia: Status: Acute Code(s): J18.9 - Pneumonia, unspecified organism (5) Hyponatremia: Status: Acute Code(s): E87.1 - Hypo-osmolality and hyponatremia (6) Primary malignant neoplasm of prostate metastatic to bone: Status: Acute Code(s): C61 - Malignant neoplasm of prostate; C79.51 - Secondary malignant neoplasm of bone (7) Coronary artery disease: Status: Acute Code(s): I25.10 - Atherosclerotic heart disease of [place] coronary artery without angina pectoris (8) Essential (primary) hypertension: Status: Acute Code(s): I10 - Essential (primary) hypertension (9) Hyperlipidemia: Status: Chronic Code(s): E78.5 - Hyperlipidemia, unspecified (10) Allergic rhinitis: Status: Acute Code(s): J30.9 - Allergic rhinitis, unspecified (11) COPD (chronic obstructive pulmonary disease): Status: Chronic Code(s): J44.9 - Chronic obstructive pulmonary disease, unspecified Plan 88 year old male with below past medical history significant for metastatic prostate cancer, hospitalized for weakness 2/2 left lower lobe pneumonia, admitted to TCU with debility, here for rehabilitation, strengthening, prior to discharge home with . * Debility - PT/OT. * Pain - Tylenol 1000mg q6 prn pain (1-10). * Bowel - senna/colace 1 tablet bid, Magnesium citrate 300ml daily prn. * Adult immunization - Administer pneumonia vaccine, covid vaccine, flu vaccine as appropriate. * DVT prophylaxis - Lovenox 40mg sc daily. * Hyponatremia - bmp tomorrow. * Metastatic prostate cancer - Xtandi 160mg daily, Eligard 22.5mg im q3m, PSA > 250, consult Dr. Grove to see what is next step in treatment. * Coronary artery disease - Metoprolol succinate 25mg daily, Aspirin 325mg daily, NTG 0.4mg sl q5m prn. * Hyperlipidemia - Atorvastatin 20mg qhs. * Vitamin D deficiency - D3 50mcg daily. * LLL pneumonia - Levaquin 750mg po daily thru 08/27/2023. * Allergic rhinitis - Loratadine 10mg daily prn. * Skin irritation - Calmoseptine topical bid. * Nutrition - MVI 1 tablet daily * Vitamin B-6 deficiency - B-6 50mg daily. * COPD - Incruse 1 puff daily. Medications at Discharge Home Medications aspirin 325 mg tablet 325 mg PO QDAY blood thinner 02/19/17 multivitamin (Daily Multi-Vitamin tablet) 1 tab PO QAM supplement 02/19/17 pyridoxine (vitamin B6) 50 mg capsule 50 mg PO DAILY supplement 09/30/18 nitroglycerin 0.4 mg sublingual tablet 0.4 mg sublingual Q5-15M PRN Pain #25 tabs 05/24/20 cholecalciferol (vitamin D3) 50 mcg (2,000 unit) capsule 50 mcg PO DAILY supplement 06/08/22 leuprolide (3 month) 22.5 mg (3 month) subcutaneous syringe (Eligard) 22.5 mg subcut [id number] 05/06/23 metoprolol succinate 25 mg tablet,extended release 24 hr 25 mg PO DAILY BP/pulse #90 tabs 05/06/23 simvastatin 40 mg tablet 40 mg PO DAILY cholesterol #90 tabs 05/06/23 tiotropium bromide 18 mcg capsule with inhalation device (Spiriva with HandiHaler) 1 cap inhalation DAILY COPD 06/11/23 acetaminophen 500 mg tablet 1,000 mg (2 x 500 mg) PO Q8H PRN Pain 1-10 Or Fever #0 tabs 09/05/23 citalopram 10 mg tablet 10 mg PO DAILY #0 tabs 09/05/23 dexamethasone 4 mg tablet 4 mg PO DAILYCM #0 tabs 09/05/23 lactulose 20 gram/30 mL oral solution 20 g (30 mL) PO BID #0 mL 09/05/23 magnesium citrate 300 ml PO DAILY PRN Constipation #0 mL 09/05/23 menthol 0.44 %-zinc oxide 20.6 % topical ointment (Calmoseptine) 1 applic topical BID #0 grams 09/05/23 ondansetron 4 mg disintegrating tablet 8 mg (2 x 4 mg) PO Q6H PRN PRN Nausea/Vomiting #0 tabs 09/05/23 polysaccharide iron complex 150 mg iron capsule (Ferrex) 150 mg PO DAILY #0 caps 09/05/23 sennosides 8.6 mg-docusate sodium 50 mg tablet (Stool Softener-Stimulant Laxative) 2 tab PO BID #0 tabs 09/05/23 Hospital Course Operations None Procedures None Summary of Care Provided Minutes Spent on Discharge: 35 Hospital Course: 88 year old male with below past medical history significant for metastatic prostate cancer, hospitalized for weakness 2/2 left lower lobe pneumonia, admitted to TCU with debility, here for rehabilitation, strengthening, prior to discharge home with . 09/02/2023 Dr. Henderson recommended PET/CT restaging of metastatic prostate cancer, iron for iron deficiency anemia, decadron 4mg daily for weakness. 09/04/2023 Hemoglobin 8.1, decreasing progressively. 09/05/2023 Hemoccult +, Friend consult pending. Discharge to [facility] 09/09/2023, Skilled. Physical Exam Const alert General Appearance: cooperative HEENT normocephalic Eyes PERRL and EOMs intact bilaterally Neck supple, no JVD and no carotid bruits Resp normal respiratory effort, normal air movement and clear to auscultation bilaterally Cardio regular rate and regular rhythm GI normal to inspection, nondistended, normoactive bowel sounds, non-tender and non-distended Extremity normal capillary refill General Extremity: Negative for edema Skin no rashes or lesions noted General Skin Exam: no breakdown Psych affect normal Appearance: appropriate Weight / BMI Weight Weight: 94.256 kg Body Mass Index (BMI) 28.1 ABG / Lab / Microbiology Data 09/04/23 05:28 09/04/23 05:28 Laboratory: Laboratory Results - last 24 hr 09/04/23 05:28: Diff Path Review Reviewed Microbiology: Microbiology 09/05/23 08:15 Stool Stool Occult Blood (NELL) - Final Occult Blood Positive 08/30/23 05:50 Nasal Secretion SARS-CoV-2 Antigen (Rapid) - Final 08/23/23 10:45 Nasal Secretion SARS-CoV-2 Antigen (Rapid) - Final D/C Instructions Discharge Diet: No restrictions Discharge Activity: Return to Normal Activity, May Shower and Use Walker Weight Bearing Status: Weight bearing as tolerated Call your doctor if you observe: Fever of 101 or Higher, Inability to urinate, Inability to have a bowel movement, Shortness of breath, Dizziness, Fainting spells, Swelling in the ankles, Chest pain and Uncontrolled pain Additional Instructions: Discharge to [facility] 09/09/2023, Skilled. Please Follow Up With: Nhan Grove MD When: As scheduled. Meaningful Use Info Meaningful Use Meaningful Use Diagnoses (Choose all that apply): None applicable Ischemic Stroke Statin Dosing Therapy Reference: STATIN DOSE THERAPY REFERENCE: * Patients > 75 years receive moderate or high dose statin therapy. * Patients 75 years or YOUNGER should receive HIGH intensity statin dose unless contraindicated. You will be required to document reason for non-treatment if statin daily dose does not meet guidelines. HIGH DOSE STATIN THERAPY DAILY Atorvastatin > than or = to 40 mg Rosuvastatin > than or = to 20 mg Amlodipine + Atorvastatin > than or = to 2.5/40 mg Ezetimibe + Simvastatin 10/80 mg Simvastatin 80mg Discharge Plan Admission Admit Date/Time: 08/20/23 14:40 Primary Reason for Your Visit: Debility. Attending Provider: Sam Trejo Chi Primary Care Provider: Chapito Das Consulting Providers: Nhan Grove Instructions Additional Instructions / Restrictions: Discharge to [facility] 09/09/2023, Skilled. Discharge Orders/Prescriptions Prescriptions: New acetaminophen 500 mg Tablet 1,000 mg PO Q8H PRN (Reason: Pain 1-10 Or Fever) Qty: 0 0RF citalopram 10 mg Tablet 10 mg PO DAILY Qty: 0 0RF polysaccharide iron complex [Ferrex 150] 150 mg iron Capsule 150 mg PO DAILY Qty: 0 0RF dexamethasone 4 mg Tablet 4 mg PO DAILYCM Qty: 0 0RF magnesium citrate Solution 300 ml PO DAILY PRN (Reason: Constipation) Qty: 0 0RF lactulose 20 gram/30 mL Solution 20 g PO BID Qty: 0 0RF menthol-zinc oxide [Calmoseptine] 0.44-20.6 % Ointment 1 applic topical BID Qty: 0 0RF Protocol: *Topical Application Instructions APPLICATION INSTRUCTIONS: coccyx sennosides-docusate sodium [Stool Softener-Stimulant Laxat] 8.6-50 mg Tablet 2 tab PO BID Qty: 0 0RF ondansetron 4 mg Tablet,Disintegrating 8 mg PO Q6H PRN PRN (Reason: Nausea/Vomiting) Qty: 0 0RF Continued aspirin 325 mg tablet 325 mg PO QDAY multivitamin [Daily Multi-Vitamin] tablet 1 tab PO QAM pyridoxine (vitamin B6) 50 mg capsule 50 mg PO DAILY tiotropium bromide [Spiriva with HandiHaler] 18 mcg capsule, w/inhalation device 1 cap inhalation DAILY Rx Instructions: puncture 1 cap using device; one dose = 2 inhalations nitroglycerin 0.4 mg tablet, sublingual 0.4 mg SUBLINGUAL Q5-15M PRN (Reason: Pain) Qty: 25 3RF cholecalciferol (vitamin D3) 50 mcg (2,000 unit) capsule 50 mcg PO DAILY metoprolol succinate 25 mg tablet extended release 24 hr 25 mg PO DAILY Qty: 90 3RF simvastatin 40 mg tablet 40 mg PO DAILY Qty: 90 3RF Eligard (3 month) 22.5 mg syringe 22.5 mg subcut [id number] Patient Comments: Not due until October 2023 Discontinued cetirizine 10 MG tablet 10 mg PO DAILY PRN (Reason: Allergies) levofloxacin 750 mg Tablet 750 mg PO DAILY@0600 6 Days Qty: 0 0RF Referrals / Follow Up: [facility], [facility] [Other] (Call and Schedule once we know Discharge date. [facility] PET, CT needs done for restaging ) Rigoberto Hendesron MD [Med Staff - Active Staff] - (2 week follow-up from 09.03.23) Nhan Grove MD [Med Staff - Active Staff] - (October 27 @ 1030 ) Chapito Das PA [Primary Care Provider] - Disposition Disposition (needs filled in before D/C Order can be placed): Custodial Facility
--- NOTE | 2023-09-05 19:33 | TREXTCAR_ITS ---
Diet Diet Order/Speech Therapy: 08/21/23 15:22 Diet: Regular - General Is pt able to select menu?: Yes Routine Orders/Code Status Code Status: Full Code Wound(s) bilateral hands, arms: Wound Type: Abrasion Therapies Weight Bearing: Weight bearing as tolerated Extremity Affected:: Bilateral Lower Physical Therapy: Eval and Treat Occupational Therapy: Eval and Treat Problem/Diagnosis (1) Debility: Status: Acute Code(s): R53.81 - Other malaise (2) Fall: Status: Acute Code(s): W19.XXXA - Unspecified fall, initial encounter (3) Closed head injury: Status: Acute Code(s): S09.90XA - Unspecified injury of head, initial encounter (4) Left lower lobe pneumonia: Status: Acute Code(s): J18.9 - Pneumonia, unspecified organism (5) Hyponatremia: Status: Acute Code(s): E87.1 - Hypo-osmolality and hyponatremia (6) Primary malignant neoplasm of prostate metastatic to bone: Status: Acute Code(s): C61 - Malignant neoplasm of prostate; C79.51 - Secondary malignant neoplasm of bone (7) Coronary artery disease: Status: Acute Code(s): I25.10 - Atherosclerotic heart disease of [place] coronary artery without angina pectoris (8) Essential (primary) hypertension: Status: Acute Code(s): I10 - Essential (primary) hypertension (9) Hyperlipidemia: Status: Chronic Code(s): E78.5 - Hyperlipidemia, unspecified (10) Allergic rhinitis: Status: Acute Code(s): J30.9 - Allergic rhinitis, unspecified (11) COPD (chronic obstructive pulmonary disease): Status: Chronic Code(s): J44.9 - Chronic obstructive pulmonary disease, unspecified Plan 88 year old male with below past medical history significant for metastatic prostate cancer, hospitalized for weakness 2/2 left lower lobe pneumonia, admitted to TCU with debility, here for rehabilitation, strengthening, prior to discharge home with . * Debility - PT/OT. * Pain - Tylenol 1000mg q6 prn pain (1-10). * Bowel - senna/colace 1 tablet bid, Magnesium citrate 300ml daily prn. * Adult immunization - Administer pneumonia vaccine, covid vaccine, flu vaccine as appropriate. * DVT prophylaxis - Lovenox 40mg sc daily. * Hyponatremia - bmp tomorrow. * Metastatic prostate cancer - Xtandi 160mg daily, Eligard 22.5mg im q3m, PSA > 250, consult Dr. Grove to see what is next step in treatment. * Coronary artery disease - Metoprolol succinate 25mg daily, Aspirin 325mg daily, NTG 0.4mg sl q5m prn. * Hyperlipidemia - Atorvastatin 20mg qhs. * Vitamin D deficiency - D3 50mcg daily. * LLL pneumonia - Levaquin 750mg po daily thru 08/27/2023. * Allergic rhinitis - Loratadine 10mg daily prn. * Skin irritation - Calmoseptine topical bid. * Nutrition - MVI 1 tablet daily * Vitamin B-6 deficiency - B-6 50mg daily. * COPD - Incruse 1 puff daily. Allergies/Procedures Done in Hospital Allergies Penicillins Allergy (Verified 09/02/23 08:37) Hives Sulfa (Sulfonamide Antibiotics) Allergy (Verified 09/02/23 08:37) Hives erythromycin base Adverse Reaction (Intermediate, Verified 09/02/23 08:37) Rash minocycline Adverse Reaction (Verified 09/02/23 08:37) Nausea Procedures: None Type of Care/Length of Stay Estimated LOS: Convalescent Care Less Than 30 days Type of Care Needed: Skilled Rehab Potential: Fair Prognosis: Poor Additional Orders/Day of Discharge Day of Discharge: 09/09/23 Dietary and Speech Recommendations Dietitian Recommendations/Changes: Continue Regular diet d/t decreased po intake and 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 Follow Up Care Please Follow Up With: Nhan Grove MD Please Follow Up With: Rigoberto Henderson MD Discharge Plan Admission Admit Date/Time: 08/20/23 14:40 Primary Reason for Your Visit: Debility. Attending Provider: Sam Trejo Chi Primary Care Provider: Chapito Das Consulting Providers: Nhan Grove Instructions Additional Instructions / Restrictions: Discharge to [facility] 09/09/2023, Skilled. Discharge Orders/Prescriptions Prescriptions: New acetaminophen 500 mg Tablet 1,000 mg PO Q8H PRN (Reason: Pain 1-10 Or Fever) Qty: 0 0RF citalopram 10 mg Tablet 10 mg PO DAILY Qty: 0 0RF polysaccharide iron complex [Ferrex 150] 150 mg iron Capsule 150 mg PO DAILY Qty: 0 0RF dexamethasone 4 mg Tablet 4 mg PO DAILYCM Qty: 0 0RF magnesium citrate Solution 300 ml PO DAILY PRN (Reason: Constipation) Qty: 0 0RF lactulose 20 gram/30 mL Solution 20 g PO BID Qty: 0 0RF menthol-zinc oxide [Calmoseptine] 0.44-20.6 % Ointment 1 applic topical BID Qty: 0 0RF Protocol: *Topical Application Instructions APPLICATION INSTRUCTIONS: coccyx sennosides-docusate sodium [Stool Softener-Stimulant Laxat] 8.6-50 mg Tablet 2 tab PO BID Qty: 0 0RF ondansetron 4 mg Tablet,Disintegrating 8 mg PO Q6H PRN PRN (Reason: Nausea/Vomiting) Qty: 0 0RF Continued aspirin 325 mg tablet 325 mg PO QDAY multivitamin [Daily Multi-Vitamin] tablet 1 tab PO QAM pyridoxine (vitamin B6) 50 mg capsule 50 mg PO DAILY tiotropium bromide [Spiriva with HandiHaler] 18 mcg capsule, w/inhalation device 1 cap inhalation DAILY Rx Instructions: puncture 1 cap using device; one dose = 2 inhalations nitroglycerin 0.4 mg tablet, sublingual 0.4 mg SUBLINGUAL Q5-15M PRN (Reason: Pain) Qty: 25 3RF cholecalciferol (vitamin D3) 50 mcg (2,000 unit) capsule 50 mcg PO DAILY metoprolol succinate 25 mg tablet extended release 24 hr 25 mg PO DAILY Qty: 90 3RF simvastatin 40 mg tablet 40 mg PO DAILY Qty: 90 3RF Eligard (3 month) 22.5 mg syringe 22.5 mg subcut [id number] Patient Comments: Not due until October 2023 Discontinued cetirizine 10 MG tablet 10 mg PO DAILY PRN (Reason: Allergies) levofloxacin 750 mg Tablet 750 mg PO DAILY@0600 6 Days Qty: 0 0RF Referrals / Follow Up: [facility], [facility] [Other] (Call and Schedule once we know Discharge date. [facility] PET, CT needs done for restaging ) Rigoberto Henderson MD [Med Staff - Active Staff] - (2 week follow-up from 09.03.23) Nhan Grove MD [Med Staff - Active Staff] - (October 27 @ 1030 ) Chapito Das PA [Primary Care Provider] - Disposition Disposition (needs filled in before D/C Order can be placed): Nursing Home Facility
[2023-09-05] MEDS: Atorvastatin Calcium 20 MG Tablet PO (20:33)
[2023-09-05] MEDS: Lactulose 20 GM/30 ML UDC PO (20:33)
[2023-09-05] MEDS: Senna/Docusate Sodium 1 Tablet 2 TABLET PO (20:33)
[2023-09-05] MEDS: Polyethylene Glycol 3350 17 GM PACKET PO (20:33)
--- NOTE | 2023-09-05 20:41 | NURSING ---
BUSINESS OPERATIONS ANALYST reports patient skin tear, patient immediatly assessed. Skin tear RUE proximal to wrist 1cmL x 2cm W x 0.1cm D, scant red drainage, skin flap intact. Patient A&Ox3, reports bumping it on the way to the bathroom. No c/o pain. No distress observed or reported. Dressing applied per order. Call light in reach.
[2023-09-05 23:00] VITALS: PULSE 70; RESP 18; O2SAT 97
[2023-09-06 06:04] LABS: Hematocrit 24.9 % (40-54); Hemoglobin 7.6 g/dL (13.0-16.5)
[2023-09-06] MEDS: Umeclidinium Bromide Inhaler 1 PUFF INHALATION (10:07)
[2023-09-06] MEDS: Iron Polysaccharide Complex 150 MG CAPSULE PO (10:08)
[2023-09-06] MEDS: Citalopram 10 MG Tablet PO (10:09)
[2023-09-06] MEDS: dexAMETHasone 4 MG Tablet PO (10:09)
[2023-09-06] MEDS: Multivitamins,Therapeutic Tablet 1 TABLET PO (10:09)
[2023-09-06 10:10] VITALS: BP 103/48; PULSE 91
[2023-09-06] MEDS: Metoprolol(XL)Succ 25 MG Tablet PO (10:10)
[2023-09-06] MEDS: Lactulose 20 GM/30 ML UDC PO (10:10)
[2023-09-06] MEDS: Polyethylene Glycol 3350 17 GM PACKET PO (10:10)
[2023-09-06] MEDS: Senna/Docusate Sodium 1 Tablet 2 TABLET PO ×2 (10:10→22:07)
[2023-09-06] MEDS: Pyridoxine HCl 50 MG Tablet PO (10:11)
[2023-09-06] MEDS: Cholecalciferol (VIT D3) 25 MCG TABLET (1,000 UNITS) 50 MCG PO (10:11)
[2023-09-06 13:06] VITALS: BP 103/48; PULSE 91; RESP 16; TEMP 36.7; O2SAT 97
--- NOTE | 2023-09-06 14:07 | CASEMGMT ---
Social Work SW met with pt's and daughter. Due to new medical concerns, pt requesting discharge to [facility] be put on hold for the moment and is understanding of copay to start on Saturday. Team notified. CC notified. Pt's insurance did offer continued stay with [facility] of 09/12 and insurance approved pt to transfer to [facility]. SW to reassess pt's readiness to transfer to another facility on Saturday. CHRISTOPHER Gilbert
[2023-09-06 16:46] VITALS: RESP 16; O2SAT 97
--- NOTE | 2023-09-06 16:56 | NURSING ---
Patient's Hgb 7.6 this morning, T&C, blood transfusion ordered per Dr. Trejo. T&C completed. Patient to have transfusion tomorrow.
[2023-09-06] MEDS: Menthol/Lanolin/Calamine/Znox 113 GM Tube 1 APPLIC TOPICAL ×2 (17:02→22:07)
--- NOTE | 2023-09-06 17:27 | CON.PCM.GI_ITS ---
HPI Consult Data Date of Consult: 09/06/23 HPI Narrative Reason for Consultation: Anemia HPI Narrative: SONJA HOPE, is a88 y/o M w/ PMHx: Former tobacco use, Metastatic Prostate CA following with Dr. Grove and Dr. Henderson, HTN, HLD, CAD s/p PCI and CABG, Chronic anemia, COPD, Hypothyroidism. He presented to the [facility] ED on 08/17/23 with history of increasing fatigue and malaise over the last 72 hours with onset of productive cough of griffith yellow- white sputum with persistent cough and mild dyspnea with exertion with unfortunately mechanical fall noted to have hit his head with EMS call at that time however he refused any transport for evaluation and on day of presentation continued to worsen with onset then nausea and a bout of emesis with poor appetite prompting family to bring him in eventually for evaluation given his significant debility. Patient reports that over the last 3 days he has had lightheadedness some send dizziness especially the activity attempts as well. He again reports poor oral intake including food and water. Workup in the ED included T98.4, heart rate 85, BP 108/51, respiratory rate 18, 95% on room air, CBC with WC 13.4, human 10.4, MCV 90.9, platelet 257 with left shift, CMP with sodium 125, chloride 92, glucose 123, hepatic profile with alk phos 1412, lactic acid 1.2, urinalysis not marked appearing, CT brain with chronic volume loss with white matter changes, no acute intracranial findings, chest x-ray with left lower lobe airspace disease with possible atelectasis versus pneumonia's and minimal opacity noted in the right lower lobe as well, EKG with sinus rhythm with no acute evidence of ischemia. Hospital course was complicated by a mechanical fall failure to thrive secondary to metastatic prostate cancer and community-acquired pneumonia due to stenotrophomonas? He has been significantly weak and is currently dealing with metastatic prostate cancer to his bones. He did have a recheck of his PSA which was in the 250 range he does have an elevation in alk phos as well which is related to his bone metastasis. On CT he was found to have community-acquired pneumonia and culture demonstrates stenotrophomonas sensitive to Levaquin which she has been on since admission. Will continue for another 6 days at 750 mg p.o. daily. I discussed with him the plan for discharge today he expressed understanding the risk benefits of going to SNF and would like to go to SNF today. He was also diagnosed with acute on chronic anemia in the hospital . His iron studies demonstrate a chronic disease pattern he does not have any bright red blood or dark stools. I was called because his hemoglobin continues to drop. Of note his hemoglobin did go up to 8.9. [facility] Medical History COVID-19 virus detected (04/2020) Old inferior wall myocardial infarction Obesity Atherosclerosis of coronary artery bypass graft without angina pectoris Atherosclerosis of coronary artery of [place] heart without angina pectoris Essential (primary) hypertension Hyperlipidemia History of bronchitis History of prostate cancer Hypothyroidism COPD (chronic obstructive pulmonary disease) Home Medications ?Medication ?Instructions ?Recorded ?Last Taken ?Type aspirin 325 mg tablet 325 mg PO QDAY blood thinner 02/19/17 Unknown History multivitamin (Daily Multi-Vitamin 1 tab PO QAM supplement 02/19/17 Unknown History tablet) pyridoxine (vitamin B6) 50 mg 50 mg PO DAILY supplement 09/30/18 Unknown History capsule nitroglycerin 0.4 mg sublingual 0.4 mg sublingual Q5-15M PRN Pain 05/24/20 Unknown Rx tablet #25 tabs cholecalciferol (vitamin D3) 50 50 mcg PO DAILY supplement 06/08/22 Unknown History mcg (2,000 unit) capsule leuprolide (3 month) 22.5 mg (3 22.5 mg subcut [id number] hormone 05/06/23 Unknown History month) subcutaneous syringe (gokit) metoprolol succinate 25 mg 25 mg PO DAILY BP/pulse #90 tabs 05/06/23 Unknown Rx tablet,extended release 24 hr simvastatin 40 mg tablet 40 mg PO DAILY cholesterol #90 tabs 05/06/23 Unknown Rx tiotropium bromide 18 mcg capsule 1 cap inhalation DAILY COPD 06/11/23 Unknown History with inhalation device (Spiriva with HandiHaler) acetaminophen 500 mg tablet 1,000 mg (2 x 500 mg) PO Q8H PRN 09/05/23 Unknown Rx Pain 1-10 Or Fever #0 tabs citalopram 10 mg tablet 10 mg PO DAILY #0 tabs 09/05/23 Unknown Rx dexamethasone 4 mg tablet 4 mg PO DAILYCM #0 tabs 09/05/23 Unknown Rx lactulose 20 gram/30 mL oral 20 g (30 mL) PO BID #0 mL 09/05/23 Unknown Rx solution magnesium citrate 300 ml PO DAILY PRN Constipation 09/05/23 Unknown Rx #0 mL menthol 0.44 %-zinc oxide 20.6 % 1 applic topical BID #0 grams 09/05/23 Unknown Rx topical ointment (Calmoseptine) ondansetron 4 mg disintegrating 8 mg (2 x 4 mg) PO Q6H PRN PRN 09/05/23 Unknown Rx tablet Nausea/Vomiting #0 tabs polysaccharide iron complex 150 mg 150 mg PO DAILY #0 caps 09/05/23 Unknown Rx iron capsule (Ferrex) sennosides 8.6 mg-docusate sodium 2 tab PO BID #0 tabs 09/05/23 Unknown Rx 50 mg tablet (Stool Softener-Stimulant Laxative) Allergy/AdvReac Type Severity Reaction Status Date / Time Penicillins Allergy Hives Verified 09/02/23 08:37 Sulfa (Sulfonamide Allergy Hives Verified 09/02/23 08:37 Antibiotics) erythromycin base AdvReac Intermediate Rash Verified 09/02/23 08:37 minocycline AdvReac Nausea Verified 09/02/23 08:37 Family History Brother CAD (coronary artery disease) Myocardial infarction Sudden cardiac Diabetes Sister Breast cancer Mother Diabetes Surgical History History of colonoscopy History of left heart catheterization (07/25/07) History of coronary artery stent placement (07/16/07) H/O coronary artery bypass surgery (2004) H/O basal cell carcinoma excision History of thoracentesis left elbow bursitis History of hernia repair spermatolectomy History of radical prostatectomy Social History household members: spouse Smoking Status: Former smoker how long ago did patient quit smokin second hand exposure: No alcohol intake: former year quit: 2003 substance use type: does not use what type of physical activity do you participate in: walking and additional details: pulmonary rehab frequency: 1-2 times per week duration: 45-60 minutes/day seatbelt use: always do you feel safe at home: Yes ROS Constitutional Constitutional: Reports systems reviewed and no addt'l complaints, except as documented, fatigue and weakness Eyes Eyes: Reports systems reviewed and no addt'l complaints, except as documented ENT HEENT: Reports systems reviewed and no addt'l complaints, except as documented Cardiovascular Cardiovascular: Reports systems reviewed and no addt'l complaints, except as documented Respiratory/Chest Respiratory/Chest: Reports systems reviewed and no addt'l complaints, except as documented Gastrointestinal Gastrointestinal: Reports systems reviewed and no addt'l complaints, except as documented Genitourinary Genitourinary: Reports systems reviewed and no addt'l complaints, except as documented Musculoskeletal Musculoskeletal: Reports systems reviewed and no addt'l complaints, except as documented Integumentary Integumentary: Reports systems reviewed and no addt'l complaints, except as documented Neurologic Neurologic: Reports systems reviewed and no addt'l complaints, except as documented Psychiatric Psychiatric: Reports systems reviewed and no addt'l complaints, except as documented Endocrine Endocrinology: Reports systems reviewed and no addt'l complaints, except as documented Hematologic/Lymphatic Hematologic/Lymphatic: Reports systems reviewed and no addt'l complaints, except as documented Allergic/Immunologic Allergic/Immunologic: Reports systems reviewed and no addt'l complaints, except as documented Physical Exam Const alert General Appearance: cooperative HEENT normocephalic Eyes PERRL and EOMs intact bilaterally Neck supple, no JVD and no carotid bruits Resp normal respiratory effort, normal air movement and clear to auscultation bilaterally Cardio regular rate and regular rhythm GI normal to inspection, nondistended, normoactive bowel sounds, non-tender and non-distended Extremity normal capillary refill General Extremity: Negative for edema Skin no rashes or lesions noted General Skin Exam: no breakdown Psych affect normal Appearance: appropriate Lab / Micro Data 09/06/23 05:30 09/04/23 05:28 Labs: Laboratory Results - last 24 hr 09/06/23 05:30: Hgb 7.6 L, Hct 24.9 L 09/06/23 07:50: Blood Type O POSITIVE, Antibody Screen NEGATIVE, Crossmatch See Detail Micro: Microbiology 09/06/23 06:00 Nasal Secretion SARS-CoV-2 Antigen (Rapid) - Final Assessment & Plan Assessment/Plan (1) Left lower lobe pulmonary infiltrate: (2) Anemia: PLAN: Plan 88-year-old gentleman with metastatic prostate cancer status post mechanical fall and failure to thrive secondary to metastatic prostate cancer and community-acquired pneumonia ? He is currently on chemotherapy for metastatic prostate cancer, he was initially diagnosed in 1994 and currently in his bones ? He should undergo an upper and lower endoscopy to evaluate his upper or lower GI tract for his worsening anemia. -He was explained alternatives, risk, benefits include not withstanding bleeding, infection, sepsis, perforation, need for charge and . Have an ASA of 3. Charges/Coding Visit Charges Inpatient E&M: 69802 SNF Init L2
[2023-09-06] MEDS: Atorvastatin Calcium 20 MG Tablet PO (22:07)
[2023-09-07] MEDS: Aspirin 325 MG Tablet PO (08:09)
[2023-09-07] MEDS: dexAMETHasone 4 MG Tablet PO (08:09)
[2023-09-07] MEDS: Multivitamins,Therapeutic Tablet 1 TABLET PO (08:09)
[2023-09-07] MEDS: Citalopram 10 MG Tablet PO (10:41)
[2023-09-07] MEDS: Iron Polysaccharide Complex 150 MG CAPSULE PO (10:42)
[2023-09-07 10:43] VITALS: PULSE 72
[2023-09-07] MEDS: Metoprolol(XL)Succ 25 MG Tablet PO (10:43)
[2023-09-07] MEDS: Senna/Docusate Sodium 1 Tablet 2 TABLET PO ×2 (10:43→21:12)
[2023-09-07] MEDS: Pyridoxine HCl 50 MG Tablet PO (10:44)
[2023-09-07] MEDS: Cholecalciferol (VIT D3) 25 MCG TABLET (1,000 UNITS) 50 MCG PO (10:44)
[2023-09-07] MEDS: Umeclidinium Bromide Inhaler 1 PUFF INHALATION (10:46)
[2023-09-07] MEDS: Menthol/Lanolin/Calamine/Znox 113 GM Tube 1 APPLIC TOPICAL ×2 (10:47→21:12)
[2023-09-07] MEDS: Lactulose 20 GM/30 ML UDC PO (21:11)
[2023-09-07] MEDS: Atorvastatin Calcium 20 MG Tablet PO (21:11)
[2023-09-07] MEDS: Polyethylene Glycol 3350 17 GM PACKET PO (21:11)
[2023-09-08] MEDS: Acetaminophen 500 MG Tablet 1000 MG PO (00:47)
[2023-09-08 06:49] LABS: Hematocrit 27.8 % (40-54); Hemoglobin 8.7 g/dL (13.0-16.5)
[2023-09-08] MEDS: Aspirin 325 MG Tablet PO (09:51)
[2023-09-08] MEDS: dexAMETHasone 4 MG Tablet PO (09:51)
[2023-09-08] MEDS: Multivitamins,Therapeutic Tablet 1 TABLET PO (09:51)
[2023-09-08] MEDS: Citalopram 10 MG Tablet PO (09:52)
[2023-09-08] MEDS: Iron Polysaccharide Complex 150 MG CAPSULE PO (09:52)
[2023-09-08] MEDS: Umeclidinium Bromide Inhaler 1 PUFF INHALATION (09:52)
[2023-09-08 09:53] VITALS: PULSE 76
[2023-09-08] MEDS: Senna/Docusate Sodium 1 Tablet 2 TABLET PO ×2 (09:53→20:20)
[2023-09-08] MEDS: Cholecalciferol (VIT D3) 25 MCG TABLET (1,000 UNITS) 50 MCG PO (09:53)
[2023-09-08] MEDS: Metoprolol(XL)Succ 25 MG Tablet PO (09:53)
[2023-09-08] MEDS: Menthol/Lanolin/Calamine/Znox 113 GM Tube 1 APPLIC TOPICAL ×2 (09:54→20:21)
[2023-09-08] MEDS: Pyridoxine HCl 50 MG Tablet PO (09:54)
[2023-09-08 13:41] VITALS: BP 117/51; PULSE 66; RESP 14; TEMP 36.4; O2SAT 95
[2023-09-08 17:19] LABS: Hematocrit 28.5 % (40-54)
[2023-09-08] MEDS: Atorvastatin Calcium 20 MG Tablet PO (20:20)
[2023-09-08 20:23] VITALS: PULSE 84; RESP 16; O2SAT 97
--- NOTE | 2023-09-09 07:38 | NURSING ---
Addendum entered by Ashley Henriquez 09/09/23 08:41: Scope planned for tomorrow, patient aware. updated via phone. Addendum entered by Ashley Henriquez 09/09/23 07:49: Updated via phone. Let her know nursing would update her as soon as they know if patient on schedule for today. She provided cell number #[phone]. Original Note: Called endo to see if patient on schedule for today. They reported they have a few add ons planned for today but unsure what patients. They requested to keep patient NPO and they will call as soon as they know if patient will be taken down for scope today. Updated patient. He states why does no one ever tell me this stuff? Explained that endo staff was unsure if patient would be fit on schedule today and apologized for having to wait to find out.
[2023-09-09 07:51] VITALS: BP 121/49; PULSE 75; RESP 16; TEMP 36.2; O2SAT 96
--- NOTE | 2023-09-09 08:27 | CASEMGMT ---
Addendum entered by Karen Myrick 09/09/23 08:36: Social Work Phone call to pt's [employer] (Bijal, ) and updated that pt will not be changing facilities today due to medical issues. Bijal agreeable for pt to stay in TCU. NRD is 09/12. CHRISTOPHER Gilbert Original Note: Social Work Pt required medical procedures and nursing attempting to get these scheduled. Phone call pt pts Marybeth who confirms that planned discharge to [facility] for today has been cancelled. No discharge date set as discharge is dependent on resolution of medical issues. Pt's is aware that insurance co pay starts today and she is agreeable for pt to remain at this facility and absorb the copay cost. also inquiring if [facility] has a bed available as this was first choice of SNF. Message sent to [facility] requesting review of pt referral to see if they would be able to accept later this week. Message sent to [facility] informing that dc is on hold due to medical issues. Message sent to [facility] inquiring about Medicaid pending number. Team updated that pt is remaining in TCU at this time. CHRISTOPHER Gilbert
--- NOTE | 2023-09-09 09:19 | CASEMGMT ---
Social Work Pt has been assigned a pending case number with Medicaid. #[id number] CHRISTOPHER Gilbert
[2023-09-09] MEDS: dexAMETHasone 4 MG Tablet PO (09:33)
[2023-09-09] MEDS: Citalopram 10 MG Tablet PO (09:33)
[2023-09-09] MEDS: Multivitamins,Therapeutic Tablet 1 TABLET PO (09:33)
[2023-09-09] MEDS: Iron Polysaccharide Complex 150 MG CAPSULE PO (09:33)
[2023-09-09] MEDS: Senna/Docusate Sodium 1 Tablet 2 TABLET PO ×2 (09:34→21:14)
[2023-09-09 09:35] VITALS: PULSE 75
[2023-09-09] MEDS: Polyethylene Glycol 3350 17 GM PACKET PO ×2 (09:35→21:15)
[2023-09-09] MEDS: Pyridoxine HCl 50 MG Tablet PO (09:35)
[2023-09-09] MEDS: Cholecalciferol (VIT D3) 25 MCG TABLET (1,000 UNITS) 50 MCG PO (09:35)
[2023-09-09] MEDS: Metoprolol(XL)Succ 25 MG Tablet PO (09:35)
[2023-09-09] MEDS: Umeclidinium Bromide Inhaler 1 PUFF INHALATION (09:39)
[2023-09-09] MEDS: Menthol/Lanolin/Calamine/Znox 113 GM Tube 1 APPLIC TOPICAL ×2 (09:39→21:17)
--- NOTE | 2023-09-09 09:42 | NURSING ---
Addendum entered by Lynn Oliva 09/09/23 09:51: dr Friend wants aspirin held today. pt updated. Original Note: pt on aspirin 325mg, held at this time until Dr friend ok with giving or wants held d/t possible GI bleed. suppose to have EGD tomorrow.
[2023-09-09] MEDS: 0.9% Saline Lock 10 ML Syringe IV (13:20)
--- NOTE | 2023-09-09 19:43 | EX.PCM.PN.GI ---
Subjective Subjective Patient does not have any complaints. He did receive blood transfusion and his hemoglobin is improving. His appetite is poor. He complains of generalized weakness. He denies any chest pain or shortness of breath Objective Data Objective Data Vital Signs: Vital Signs Temp Pulse Resp BP Pulse Ox O2 Del Method 97.2 F L 75 16 121/49 H 96 Room Air 09/09/23 07:51 09/09/23 09:35 09/09/23 07:51 09/09/23 07:51 09/09/23 07:51 09/09/23 07:51 Oxygen Delivery Method Room Air Weight: 207 lb 12.8 oz Body Mass Index (BMI) 28.1 Intake & Output: Intake and Output for Last 24 Hours 09/07/23 09/08/23 09/09/23 23:59 23:59 23:59 Intake Total 120 / 120 480 / 480 560 / 560 Balance 120 / 120 480 / 480 560 / 560 Lab / Micro Data 09/08/23 17:13 09/04/23 05:28 Micro: Microbiology 09/06/23 06:00 Nasal Secretion SARS-CoV-2 Antigen (Rapid) - Final 09/05/23 08:15 Stool Stool Occult Blood (NELL) - Final Occult Blood Positive 08/30/23 05:50 Nasal Secretion SARS-CoV-2 Antigen (Rapid) - Final 08/23/23 10:45 Nasal Secretion SARS-CoV-2 Antigen (Rapid) - Final Physical Exam Const alert General Appearance: cooperative HEENT normocephalic Eyes PERRL and EOMs intact bilaterally Neck supple, no JVD and no carotid bruits Resp normal respiratory effort, normal air movement and clear to auscultation bilaterally Cardio regular rate and regular rhythm GI normal to inspection, nondistended, normoactive bowel sounds, non-tender and non-distended Extremity normal capillary refill General Extremity: Negative for edema Skin no rashes or lesions noted General Skin Exam: no breakdown Psych affect normal Appearance: appropriate Assessment & Plan Assessment/Plan (1) Left lower lobe pulmonary infiltrate: (2) Anemia: PLAN: Plan 88-year-old gentleman with metastatic prostate cancer status post mechanical fall and failure to thrive secondary to metastatic prostate cancer and community-acquired pneumonia ? He is currently on chemotherapy for metastatic prostate cancer, he was initially diagnosed in 1994 and currently in his bones ? He should undergo an upper and lower endoscopy to evaluate his upper or lower GI tract for his worsening anemia. -He was explained alternatives, risk, benefits include not withstanding bleeding, infection, sepsis, perforation, need for charge and . Have an ASA of 3. 09/09/2023-plan is for him to undergo upper endoscopy to evaluate his upper GI tract. Please keep him n.p.o. past midnight. Charges/Coding Visit Charges Inpatient E&M: 87553 Subs Hosp L3
[2023-09-09] MEDS: Atorvastatin Calcium 20 MG Tablet PO (21:15)
[2023-09-10 07:24] VITALS: BP 115/53; PULSE 74; RESP 16; TEMP 36.2; O2SAT 95
[2023-09-10] MEDS: Umeclidinium Bromide Inhaler 1 PUFF INHALATION (07:25)
[2023-09-10 07:26] VITALS: PULSE 74
[2023-09-10] MEDS: Menthol/Lanolin/Calamine/Znox 113 GM Tube 1 APPLIC TOPICAL ×2 (07:26→22:12)
[2023-09-10] MEDS: Metoprolol(XL)Succ 25 MG Tablet PO (07:26)
[2023-09-10] MEDS: Iron Polysaccharide Complex 150 MG CAPSULE PO (07:26)
[2023-09-10] MEDS: Citalopram 10 MG Tablet PO (07:26)
[2023-09-10] MEDS: dexAMETHasone 4 MG Tablet PO (07:26)
[2023-09-10] MEDS: 0.9% Saline Lock 10 ML Syringe IV (09:31)
[2023-09-10 09:35] VITALS: BP 115/53; PULSE 72; RESP 16; TEMP 36.2; O2SAT 98; BMI 28.1
--- NOTE | 2023-09-10 10:20 | NURSING ---
pt off unit to endo
[2023-09-10 10:25] VITALS: BMI 27.4
--- NOTE | 2023-09-10 13:15 | NURSING ---
pt returned from EGD, new order to stop aspirin and no NSAIDS x12 wks start prilosec and carafate x4 wks
[2023-09-10] MEDS: Polyethylene Glycol 3350 17 GM PACKET PO ×2 (14:47→22:06)
[2023-09-10] MEDS: Pyridoxine HCl 50 MG Tablet PO (14:47)
[2023-09-10] MEDS: Cholecalciferol (VIT D3) 25 MCG TABLET (1,000 UNITS) 50 MCG PO (14:47)
[2023-09-10] MEDS: Senna/Docusate Sodium 1 Tablet 2 TABLET PO ×2 (14:47→22:06)
--- NOTE | 2023-09-10 14:50 | NURSING ---
with many questions today since speaking to Dr Causey, reporting that Dr Causey stating that decadron has caused pt erosive esophagus. And feels that Dr Henderson never told them he was going to start pt on this medication. Dr Grove discussed continue to treat pt with Eligard injections but not the Chemo medication he was taking. seems very confused about decisions for discharge and would like to speak to social security benefits interviewer. CHRISTOPHER Galicia notified.
--- NOTE | 2023-09-10 15:00 | CASEMGMT ---
Social Work MARTINA met with patient's , Marybeth to discuss concerns regarding discharge planning and care plans. Marybeth informed SW that the patient completed EGD and was found to have erosive esophagus due to medications. Marybeth expressed concerns for the patient's quality of life due to patient being notified by Oncology that patient is not a candidate for chemotherapy. Marybeth informed SW that she was notified that the patient has no treatment option for current diagnosis. Marybeth informed MARTINA that Dr. Causey provided patient with new Rx for esophageal erosion. Marybeth informed MARTINA that Dr. Causey is supposed to follow up with recommendations for care. Patient has been declining to eat due to esophageal concerns. Marybeth informed SW that she was concerned about the patient's medical stability. MARTINA informed Marybeth that Dr. Trejo will be contacted to review medical condition. Marybeth informed SW that she previously wanted the patient to discharge to [facility], but due to changes in medical status patient was unable to transition to facility. Marybeth requested that MARTINA follow up with first choice facility, [facility] to determine if any beds became available to accept patient for placement. Marybeth informed SW that [facility] is preferred due to proximity from home. MARTINA discussed Palliative Care services with Marybeth due to concerns for patient's quality of life and prognosis. Marybeth informed SW that Palliative Care has been discussed with the patient and family, but Marybeth stated that she don't understand what it is. MARTINA informed patient of Palliative Care services and benefits. Marybeth informed SW that they previously declined Palliative Care due to concerns regarding finances. Marybeth informed SW that she is agreeable to Palliative Care services. Marybeth informed MARTINA that she will discuss Palliative Care services with her family. MARTINA notified Physician and obtained order for Palliative Care services. SW submitted referral for Palliative Care services. Patient has Medicaid application currently pending; #[id number]. MARTINA spoke with patient, Julio Garcia at bedside to discuss discharge plans. Patient informed SW that he wants to continue to obtain rehab. Patient's choice for placement is 1. [facility] and 2. [facility]. MARTINA contacted [facility] and spoke with Sylvia to discuss bed availability. Sylvia informed SW that she only has one private male bed available, but it is for private pay. SW provided update regarding placement and rehab needs. Sylvia informed SW that she cannot guarantee bed availability, but encouraged SW to follow up, if the patient is not discharged to different facility. SW will continue to follow. Discharge plan: continue rehabilitation at SNF with Palliative Care. KULDIP Jay
[2023-09-10] MEDS: Sucralfate 1 GM Tablet PO ×2 (16:30→22:06)
[2023-09-10] MEDS: Lactulose 20 GM/30 ML UDC PO (22:06)
[2023-09-10] MEDS: Pantoprazole Sodium 40 MG Tablet PO (22:06)
[2023-09-10] MEDS: Atorvastatin Calcium 20 MG Tablet PO (22:07)
[2023-09-11 05:35] LABS: Hematocrit 27.8 % (40-54); Hemoglobin 8.7 g/dL (13.0-16.5); Mean Corp Hgb Conc 31.3 g/dL (32-36); Mean Corpuscular Hgb 28.1 pg (27.0-32.0); Mean Corpuscular Volume 89.7 fL (80-94); Mean Platelet Vol. 8.9 fl (6.2-12.0); POSITIVE COUNT YES; POSITIVE DIFFERENTIAL YES; POSITIVE MORPHOLOGY YES; Platelet Count 150 K/mm3 (150-450); RBC Distribution Width CV 17.1 % (11.6-14.6); RBC Distribution Width SD 55.5 fl (35.1-43.9); White Blood Count 17.7 K/mm3 (4.4-11.0)
[2023-09-11 05:50] LABS: Differential Indicated MANUAL DIFF
[2023-09-11 05:53] LABS: Anion Gap 8 (5-15); BUN 18 mg/dL (7-18); BUN/Creat Ratio 24.6 RATIO (10-20); Calcium,Total 7.6 mg/dL (8.5-10.1); Chloride 95 mmol/L (98-107); Creatinine, Serum 0.73 mg/dL (0.70-1.30); EST Glomerular Filtration Rate 108 mL/min (>60); Est Glom Filt Rate - Afr Amer 130 mL/min (>60); Glucose 113 mg/dL (74-106); Potassium 4.1 mmol/L (3.5-5.1); Sodium Level 126 mmol/L (136-145)
[2023-09-11 06:20] LABS: Lymphocyte 27 % (19-41); Metamyelocyte 1 % (0-1); Monocyte 8 % (0-10); Myelocyte 1 % (0-0); Neutrophil-Band 6 % (0-5); Neutrophil-Segmented 54 % (47-70); Nucleated Red Bld Cells,Manual 1 % (0-5); Other WBC Type 3 %; Total Cells Counted 100 (MANUAL DIFF)
[2023-09-11 06:22] LABS: Platelet Estimate ADEQUATE (ADEQ)
[2023-09-11 06:23] LABS: Absolute Lymphocyte Count 4.78 X10^3/uL (0.83-4.51); Absolute Neutrophil Count 10.6 X10^3/uL (2.0-7.7)
[2023-09-11] MEDS: Sucralfate 1 GM Tablet PO ×4 (06:36→23:14)
[2023-09-11 07:51] VITALS: BP 107/53; PULSE 83
[2023-09-11] MEDS: Pantoprazole Sodium 40 MG Tablet PO ×2 (07:51→23:14)
[2023-09-11] MEDS: Metoprolol(XL)Succ 25 MG Tablet PO (07:51)
[2023-09-11] MEDS: Citalopram 10 MG Tablet PO (07:52)
[2023-09-11] MEDS: Pyridoxine HCl 50 MG Tablet PO (07:52)
[2023-09-11] MEDS: Iron Polysaccharide Complex 150 MG CAPSULE PO (07:52)
[2023-09-11] MEDS: Senna/Docusate Sodium 1 Tablet 2 TABLET PO ×2 (07:52→23:14)
[2023-09-11] MEDS: Multivitamins,Therapeutic Tablet 1 TABLET PO (07:52)
[2023-09-11] MEDS: Cholecalciferol (VIT D3) 25 MCG TABLET (1,000 UNITS) 50 MCG PO (07:52)
[2023-09-11] MEDS: Umeclidinium Bromide Inhaler 1 PUFF INHALATION (07:53)
[2023-09-11] MEDS: Menthol/Lanolin/Calamine/Znox 113 GM Tube 1 APPLIC TOPICAL ×2 (07:54→23:14)
[2023-09-11 07:58] VITALS: BP 107/53; PULSE 83; RESP 16; TEMP 36.7; O2SAT 97
[2023-09-11] MEDS: Atorvastatin Calcium 20 MG Tablet PO (23:14)
[2023-09-11 23:30] VITALS: O2SAT 94
[2023-09-12] MEDS: Sucralfate 1 GM Tablet PO ×4 (06:41→21:03)
[2023-09-12] MEDS: Umeclidinium Bromide Inhaler 1 PUFF INHALATION (09:01)
[2023-09-12] MEDS: Citalopram 10 MG Tablet PO (09:02)
[2023-09-12] MEDS: Multivitamins,Therapeutic Tablet 1 TABLET PO (09:02)
[2023-09-12] MEDS: Pantoprazole Sodium 40 MG Tablet PO ×2 (09:02→21:03)
[2023-09-12] MEDS: Senna/Docusate Sodium 1 Tablet 2 TABLET PO ×2 (09:02→21:03)
[2023-09-12 09:03] VITALS: BP 113/44; PULSE 80
[2023-09-12] MEDS: Cholecalciferol (VIT D3) 25 MCG TABLET (1,000 UNITS) 50 MCG PO (09:03)
[2023-09-12] MEDS: Metoprolol(XL)Succ 25 MG Tablet PO (09:03)
[2023-09-12] MEDS: Pyridoxine HCl 50 MG Tablet PO (09:03)
[2023-09-12] MEDS: Iron Polysaccharide Complex 150 MG CAPSULE PO (09:03)
[2023-09-12] MEDS: Menthol/Lanolin/Calamine/Znox 113 GM Tube 1 APPLIC TOPICAL ×2 (09:06→21:04)
[2023-09-12 10:16] LABS: Pathologist Review Reviewed
[2023-09-12 11:13] VITALS: BP 113/44; PULSE 80; RESP 16; TEMP 36.5; O2SAT 97
--- NOTE | 2023-09-12 14:17 | CASEMGMT ---
Addendum entered by Grayson Sandoval 09/12/23 17:41: SW notified patient's , Marybeth that [facility] a bed available. [facility] for placement. [facility] met with Marybeth to obtain financial information and submitted verification for Medicaid. Original Note: Social Work SW received notification from [facility] that they have a TCC bed available. Sylvia requested updated clinicals for review. SW submitted additional clinical documentation via careport. Patient's is at bedside with financial information for Medicaid. SW contacted Shoshana from [facility] to notify that patient's is requesting follow up. KULDIP Jay
[2023-09-12 19:36] VITALS: PULSE 80; RESP 16; O2SAT 98
[2023-09-12] MEDS: Atorvastatin Calcium 20 MG Tablet PO (21:03)
[2023-09-13] MEDS: Sucralfate 1 GM Tablet PO ×4 (06:08→19:53)
--- NOTE | 2023-09-13 08:14 | PCM.TCUNOT ---
Subjective Subjective Resident seen, examined for regulatory visit. He is resting comfortably in bed, arouses easily, alert. He has no new problems, concerns, issues, complaints. He is planning on discharging to [facility], discharge date not set. 09/10/2023 Dr. Marium CONSTANTINO. Impressions : - Severe erosive esophagitis with bleeding. Biopsied. - Non-bleeding gastric ulcers with no stigmata of bleeding. Biopsied. - Non-bleeding duodenal diverticulum. - Non-bleeding duodenal ulcers with pigmented material. Biopsied. Recommendations : - Return patient to referring hospital for ongoing care. - Resume previous diet. - No aspirin, ibuprofen, naproxen, or other non-steroidal anti-inflammatory drugs for 12 weeks. - Use Prilosec (omeprazole) 40 mg PO BID. - Stop Decadron Objective Data Objective Data Vital Signs: Vital Signs Temp Pulse Resp BP Pulse Ox O2 Del Method 97.7 F L 80 16 113/44 L 98 Room Air 09/12/23 11:13 09/12/23 19:36 09/12/23 19:36 09/12/23 11:13 09/12/23 19:36 09/13/23 06:50 Oxygen Delivery Method Room Air Weight: 91.762 kg Body Mass Index (BMI) 27.4 Intake & Output: Intake and Output for Last 24 Hours 09/11/23 09/12/23 09/13/23 23:59 23:59 23:59 Intake Total 680 / 680 360 / 360 Balance 680 / 680 360 / 360 Lab / Micro Data Attestation: I reviewed the patient's lab results. 09/11/23 05:15 09/11/23 05:15 Labs: Laboratory Results - last 24 hr 09/11/23 05:15: Diff Path Review Reviewed Micro: Microbiology 09/13/23 05:30 Nasal Secretion SARS-CoV-2 Antigen (Rapid) - Final 09/06/23 06:00 Nasal Secretion SARS-CoV-2 Antigen (Rapid) - Final 09/05/23 08:15 Stool Stool Occult Blood (NELL) - Final Occult Blood Positive 08/30/23 05:50 Nasal Secretion SARS-CoV-2 Antigen (Rapid) - Final 08/23/23 10:45 Nasal Secretion SARS-CoV-2 Antigen (Rapid) - Final Physical Exam Const alert General Appearance: cooperative HEENT normocephalic Eyes PERRL and EOMs intact bilaterally Neck supple, no JVD and no carotid bruits Resp normal respiratory effort, normal air movement and clear to auscultation bilaterally Cardio regular rate and regular rhythm GI normal to inspection, nondistended, normoactive bowel sounds, non-tender and non-distended Extremity normal capillary refill General Extremity: Negative for edema Skin no rashes or lesions noted General Skin Exam: no breakdown Psych affect normal Appearance: appropriate Assessment & Plan Assessment/Plan (1) Debility: (2) Fall: (3) Closed head injury: (4) Left lower lobe pneumonia: (5) Hyponatremia: (6) Primary malignant neoplasm of prostate metastatic to bone: (7) Coronary artery disease: (8) Essential (primary) hypertension: (9) Hyperlipidemia: (10) Allergic rhinitis: (11) COPD (chronic obstructive pulmonary disease): PLAN: Plan 88 year old male with below past medical history significant for metastatic prostate cancer, hospitalized for weakness 2/2 left lower lobe pneumonia, admitted to TCU with debility, here for rehabilitation, strengthening, prior to discharge home with . Debility - PT/OT. Pain - Tylenol 1000mg q8 prn, Oxycodone 5mg q4 prn. Bowel - senna/colace 2 tablet bid, Lactulose 20gm po bid, Magnesium citrate 300ml daily prn. Adult immunization - Administer pneumonia vaccine, covid vaccine, flu vaccine as appropriate. DVT prophylaxis - Hold, anemia, UGIB. Hyponatremia - chronic. Metastatic prostate cancer - Dr. Henderson. Coronary artery disease - Metoprolol succinate 25mg daily, NTG 0.4mg sl q5m prn. Hyperlipidemia - Atorvastatin 20mg qhs. Vitamin D deficiency - D3 50mcg daily. Allergic rhinitis - Loratadine 10mg daily prn. Skin irritation - Calmoseptine topical bid. Nutrition - MVI 1 tablet daily Vitamin B-6 deficiency - B-6 50mg daily. COPD - Incruse 1 puff daily. Depression - Citalopram 10mg daily, stable chronic use, GDR not recommended. Iron deficiency anemia - Ferrex 150mg daily. Nausea - Froy 8mg q6 prn. Gastric ulcer - Pantoprazole 40mg bid, Sucralfate 1gm qachs.
[2023-09-13] MEDS: Citalopram 10 MG Tablet PO (08:33)
[2023-09-13] MEDS: Multivitamins,Therapeutic Tablet 1 TABLET PO (08:33)
[2023-09-13] MEDS: Menthol/Lanolin/Calamine/Znox 113 GM Tube 1 APPLIC TOPICAL ×2 (08:33→19:49)
[2023-09-13 08:34] VITALS: BP 115/49; PULSE 77
[2023-09-13] MEDS: Senna/Docusate Sodium 1 Tablet 2 TABLET PO ×2 (08:34→19:53)
[2023-09-13] MEDS: Umeclidinium Bromide Inhaler 1 PUFF INHALATION (08:34)
[2023-09-13] MEDS: Pantoprazole Sodium 40 MG Tablet PO ×2 (08:34→19:53)
[2023-09-13] MEDS: Pyridoxine HCl 50 MG Tablet PO (08:34)
[2023-09-13] MEDS: Iron Polysaccharide Complex 150 MG CAPSULE PO (08:34)
[2023-09-13] MEDS: Metoprolol(XL)Succ 25 MG Tablet PO (08:34)
[2023-09-13] MEDS: Cholecalciferol (VIT D3) 25 MCG TABLET (1,000 UNITS) 50 MCG PO (08:34)
[2023-09-13 10:46] VITALS: BP 115/49; PULSE 77; RESP 16; TEMP 36.5; O2SAT 96
--- NOTE | 2023-09-13 10:51 | CASEMGMT ---
Addendum entered by Grayson Sandoval 09/13/23 14:45: MARTINA completed PASSR. A copy placed in patient's medical chart. Addendum entered by Grayson Sandoval 09/13/23 14:12: MARTINA met with patient and son, Julio Nunn at bedside to discuss transportation. Julio Nunn informed SW that he will be out of town on Saturday, 09/14. Patient will require transportation to be arranged via wheelchair. MARTINA contacted [facility] [phone] to complete referral for wheelchair transportation to [facility] on 09/15/2023 at [address] Addendum entered by Grayson Sandoval 09/13/23 11:48: [facility] to provide update regarding placement. Bijal informed SW that the patient has received update for continued coverage rehabilitation through 09/21; next review 09/19. MARTINA contacted [facility] they are able to accept anytime. SW arranged for discharge for Saturday, 09/14. Patient would like to discuss transportation with his son, Julio upon arrival to [facility]. SW will follow up with patient at [facility] to determine transportation. Original Note: Social Work SW received a call from Shoshana Louis informing SW that the patient has received approval for Medicaid. The patient has been approved Medicaid billing #[id number] effective 08/17/2023; liability $0. [facility] is able to accept patient for TCC bed. [facility] currently does not have a male LTC bed available. [facility] is willing to work with family to identify LTC placement when a male bed becomes available. ? MARTINA contacted patient's , Marybeth via phone and met with patient at bedside to inform of Medicaid approval. The patient and , Marybeth is agreeable to placement at [facility]. SW informed Marybeth that a [facility] care bed is not guaranteed at this time. Marybeth provided verbal understanding. Marybeth is requesting that the RN discuss follow up appointments with her. Marybeth expressed concerns for transportation from facility to appointments. SW discussed transportation options from facility. Patient will need transportation assistance from [facility] to [facility]. Palliative Care was consulted to follow patient SW will contact [facility] and work with [facility] to arrange discharge. KULDIP Jay
--- NOTE | 2023-09-13 16:25 | CASEMGMT ---
Social Work SW met with patient at bedside to complete discharge MDS. Patient BIM () and PhQ2 (1). Patient informed SW that he has lost interest in doing things once. Patient informed SW that he was having suicidal thoughts over the past two weeks because he was over it. SW inquired about clarification. Patient informed SW that he was over doing everything due to his prognosis. SW inquired about patient's interest in hospice. Patient informed SW that he does not want to pursue hospice yet. Patient stated They change your medications and let you . Patient informed SW that he was not interested in hospice at this time. SW inquired about the patient being depressed. The patient denies being depressed. Patient stated maybe I wasn't really suicidal. Patient stated I want to keep going. I want to get rehab to keep going. OT came in to work with patient, patient declined services. Patient anticipates discharge on 09/15/2023 to [facility] with Physician w/c providing transportation at [address] KULDIP Jay
[2023-09-13] MEDS: Lactulose 20 GM/30 ML UDC PO (19:53)
[2023-09-13] MEDS: Atorvastatin Calcium 20 MG Tablet PO (19:53)
[2023-09-13] MEDS: Polyethylene Glycol 3350 17 GM PACKET PO (19:53)
[2023-09-14] MEDS: Sucralfate 1 GM Tablet PO ×4 (06:09→22:41)
[2023-09-14 08:52] VITALS: PULSE 80
[2023-09-14] MEDS: Pantoprazole Sodium 40 MG Tablet PO ×2 (08:52→22:41)
[2023-09-14] MEDS: Iron Polysaccharide Complex 150 MG CAPSULE PO (08:52)
[2023-09-14] MEDS: Cholecalciferol (VIT D3) 25 MCG TABLET (1,000 UNITS) 50 MCG PO (08:52)
[2023-09-14] MEDS: Umeclidinium Bromide Inhaler 1 PUFF INHALATION (08:52)
[2023-09-14] MEDS: Multivitamins,Therapeutic Tablet 1 TABLET PO (08:52)
[2023-09-14] MEDS: Pyridoxine HCl 50 MG Tablet PO (08:52)
[2023-09-14] MEDS: Senna/Docusate Sodium 1 Tablet 2 TABLET PO (08:52)
[2023-09-14] MEDS: Citalopram 10 MG Tablet PO (08:52)
[2023-09-14] MEDS: Metoprolol(XL)Succ 25 MG Tablet PO (08:52)
[2023-09-14] MEDS: Menthol/Lanolin/Calamine/Znox 113 GM Tube 1 APPLIC TOPICAL ×2 (08:53→22:42)
[2023-09-14 10:27] VITALS: BP 121/48; PULSE 80; RESP 14; TEMP 36.5; O2SAT 99
[2023-09-14] MEDS: Atorvastatin Calcium 20 MG Tablet PO (22:42)
[2023-09-15] MEDS: Sucralfate 1 GM Tablet PO ×2 (06:02→10:21)
[2023-09-15] MEDS: Menthol/Lanolin/Calamine/Znox 113 GM Tube 1 APPLIC TOPICAL (08:18)
[2023-09-15] MEDS: Iron Polysaccharide Complex 150 MG CAPSULE PO (08:19)
[2023-09-15] MEDS: Citalopram 10 MG Tablet PO (08:19)
[2023-09-15] MEDS: Multivitamins,Therapeutic Tablet 1 TABLET PO (08:19)
[2023-09-15] MEDS: Pantoprazole Sodium 40 MG Tablet PO (08:20)
[2023-09-15] MEDS: Pyridoxine HCl 50 MG Tablet PO (08:21)
[2023-09-15] MEDS: Cholecalciferol (VIT D3) 25 MCG TABLET (1,000 UNITS) 50 MCG PO (08:21)
[2023-09-15] MEDS: Umeclidinium Bromide Inhaler 1 PUFF INHALATION (08:22)
[2023-09-15 10:21] VITALS: PULSE 82
[2023-09-15] MEDS: Metoprolol(XL)Succ 25 MG Tablet PO (10:21)
[2023-09-15 10:50] VITALS: BP 118/50; PULSE 82; RESP 16; TEMP 36.5; O2SAT 96
== END 2023-09-15 11:30 | disposition skilled nursing facility (03) | DRG 193 ==
PROVIDERS: Admitting Provider Family Medicine Geriatric Medicine; PCP Physician Assistant; Visit Provider Family Medicine Geriatric Medicine
DX: J18.9 Pneumonia, unspecified organism (principal); K20.81 Other esophagitis with bleeding; C79.51 Secondary malignant neoplasm of bone; J44.0 Chronic obstructive pulmonary disease with (acute) lower respiratory infection; E87.1 Hypo-osmolality and hyponatremia; C61 Malignant neoplasm of prostate; I10 Essential (primary) hypertension; F32.A Depression, unspecified; D50.9 Iron deficiency anemia, unspecified; J30.9 Allergic rhinitis, unspecified; I25.10 Atherosclerotic heart disease of native coronary artery without angina pectoris; E55.9 Vitamin D deficiency, unspecified; E78.5 Hyperlipidemia, unspecified; W19.XXXD Unspecified fall, subsequent encounter; K57.10 Diverticulosis of small intestine without perforation or abscess without bleeding; K26.9 Duodenal ulcer, unspecified as acute or chronic, without hemorrhage or perforation; S09.90XD Unspecified injury of head, subsequent encounter; Z95.5 Presence of coronary angioplasty implant and graft; Z87.891 Personal history of nicotine dependence; Z79.899 Other long term (current) drug therapy; Z79.82 Long term (current) use of aspirin; Z95.1 Presence of aortocoronary bypass graft; Z86.16 Personal history of COVID-19; K25.9 Gastric ulcer, unspecified as acute or chronic, without hemorrhage or perforation; R62.7 Adult failure to thrive
CPT/HCPCS: 36415; 72170; 74018; 80048; 82274; 83930; 83935; 84153; 84300; 85014; 85018; 85025; 86850; 86900; 86901; 86920; 86922; 87811; 97110; 97116; 97162; 97166; 97530; 97535; 97802; J7030; A4216

== ENCOUNTER 2023-09-07 11:05 | Outpatient (CLI) | payer MEDICARE, SELFPAY ==
[2023-09-07] VITALS (8 sets, daily range): BP systolic 118–141; BP diastolic 48–57; PULSE 71–78; RESP 15–18; TEMP 36.4–36.8; O2SAT 95–98
== END 2023-09-07 17:57 | disposition home or self-care (01) ==
LOC: MEDOUTP 11:08 → PCU 11:09
PROVIDERS: PCP Physician Assistant; Referring Provider Family Medicine Geriatric Medicine; Visit Provider Family Medicine Geriatric Medicine
DX: D62 Acute posthemorrhagic anemia (principal)
CPT/HCPCS: 36430; 86850; 86900; 86901; 86920; 86922; P9016

== ENCOUNTER 2023-09-10 10:30 | Day surgery (SDC) | payer MEDICARE, SELFPAY ==
[2023-09-10] VITALS (8 sets, daily range): BP systolic 96–144; BP diastolic 47–65; PULSE 72–83; RESP 16–18; TEMP 36.1–37.4; O2SAT 96–99
[2023-09-10] MEDS: Lactated Ringers 1,000 ML 15 ML IV (11:00)
--- NOTE | 2023-09-10 11:11 | PCM.PRE.AN2 ---
ASA Classification* ASA Classification ASA Classification: 3 Assessment & Plan Anesthesia* Anesthesia Assessment Anesthesia Assessment: Discussed sedation and/or anesthesia options, risks, benefits, and alternatives with patient/parents/legal guardian/POA. Questions invited. The patient/parents/legal guardian/POA seems to understand and agrees to proceed with anesthesia plan. Reviewed the physical assessment, medical history, allergy history and patient home medications list prior to surgery/procedure/anesthetic and documented any changes. Performed airway and anesthesia risk assessments. Procedural Plan Procedural Plan:: Proceed w/ Anesthesia plan Anesthesia Type Anesthesia Type: MAC History Source History Obtained from:: Patient and Chart Anesthesia Focused Assessment* Temperature: 99.3 F Pulse Rate: 74 Blood Pressure: 144/65 Respiratory Rate: 16 Pulse Ox: 96 Oxygen Delivery Method: Room Air Airway Assessment Mouth opens: >3 cm Mallampati Score: III Teeth Condition: Dentures, Full (On top. Out) and Partial (Lower. Out) Neck Range of motion (ROM): Limited ROM Pertinent Findings EKG Pertinent Findings:: August 17, 2023 sinus rhythm with sinus arrhythmia. nonspecific ST wave ECHO Pertinent Findings:: March 01, 2021 ejection fraction 60% Focused Labs Anesthesia Preop lab: CBC WBC 14.9 K/mm3 (4.4-11.0) H 09/04/23 05:28 RBC 2.81 M/mm3 (4.6-6.2) L 09/04/23 05:28 Hgb 9.0 g/dL (13.0-16.5) L 09/08/23 17:13 Hct 28.5 % (40-54) L 09/08/23 17:13 Plt Count 196 K/mm3 (150-450) 09/04/23 05:28 CHEMISTRY Potassium 4.7 mmol/L (3.5-5.1) 09/04/23 05:28 Sodium 124 mmol/L (136-145) L 09/04/23 05:28 Magnesium 2.2 mg/dL (1.6-2.6) 08/17/23 21:57 Phosphorus 2.6 mg/dL (2.5-4.9) 08/17/23 21:57 BUN 17 mg/dL (7-18) 09/04/23 05:28 Creatinine 0.71 mg/dL (0.70-1.30) 09/04/23 05:28 Glucose 108 mg/dL (74-106) H 09/04/23 05:28 TSH 1.64 uIU/mL (0.358-3.74) 08/18/23 04:40 COAG Pre-Assessment Diagnosis/Proposed Procedure Planned Operative Procedure(s): esophagogastroduodenoscopy Anesthesia History Anesthesia History - property underwriter: Anesthesia History - property underwriter Hx Hospitalization Yes 09/10/23 10:36 Any Problems With Anesthesia No 09/10/23 10:36 Cholinesterase deficiency No 09/10/23 10:36 You/Your Family Experience No 09/10/23 10:36 fever (hyperthermia) with Relationship Recent Exposure to Contagious No 09/10/23 10:36 Disease Does patient have nerve No 09/10/23 10:36 stimulator Patient instructed to have device shut off --Does patient have Pacemaker No 09/10/23 10:36 or ICD? When Was Last Pacemaker Check QUESTION #4 FULL TEXT: You/Your Family Experience fever (hyperthermia) with Anesthesia Last Oral Intake Last Oral intake: Last Oral Intake NPO since 00:00 09/10/23 10:36 Meds taken in AM with sips of Yes 09/10/23 10:36 water? Meds patient instructed to take am of surgery PONV PONV - property underwriter: PONV - property underwriter Female No 09/10/23 10:36 HX of Motion Sickness No 09/10/23 10:36 HX of N/V After Surgery No 09/10/23 10:36 Non-Smoker Yes 09/10/23 10:36 Duration of Surgery greater No 09/10/23 10:36 than 60 minutes Number of Risk Factors 1 09/10/23 10:36 PONV Score Low Risk 09/10/23 10:36 Height & Weight Height & Weight: Anesthesia: Height & Weight Height 6 ft 09/10/23 10:36 Respiratory Assessment Respiratory Assessment - property underwriter: Respiratory Tract Infection Hx - property underwriter Hx Respiratory Tract Infection No 09/10/23 10:36 STOP Sleep Apnea STOP Sleep Apnea - property underwriter: STOP Sleep Apnea - property underwriter Hx Hypertension Yes 09/10/23 10:36 Hx Sleep Apnea No 09/10/23 10:36 CPAP BIPAP Do you snore loudly (louder No 09/10/23 10:36 than talking or can be heard Do you often feel tired/ No 09/10/23 10:36 fatigued/ sleepy during daytime? Has anyone observed you stop No 09/10/23 10:36 breathing during sleep? STOP Results Negative 09/10/23 10:36 QUESTION #5 FULL TEXT : Do you snore loudly (louder than talking or can be heard through closed doors)? Tobacco Use History Tobacco Use History - property underwriter: Tobacco Use History - property underwriter Tobacco Use Smoking Status Former smoker 09/10/23 10:36 Hx Tobacco Use No 09/10/23 10:36 Years Smoking Packs Smoked per Day Smoking Cessation Date was Yes - quit smoking within 15 09/10/23 10:36 within the last 15 years years Hx Smoking Cessation Date Hx Smoking Cessation Counseling Hematologic Medial History Hematologic Hx - property underwriter: Hematologic Medical Hx - general manager Hx of Blood Transfusion Yes 09/10/23 10:36 Hx of Transfusion in last 3 Yes 09/10/23 10:36 Months Date of Last Transfusion (if 09/07/23 09/10/23 10:36 within last 3 months) Ever experience any problems No 09/10/23 10:36 with transfusion(s)? Specify any problems Hx of Preganancy in last 3 N/A 09/10/23 10:36 Months Nurse Filling Out Transfusion CPARSONS 09/10/23 10:36 & Questions: Date: 09/10/23 09/10/23 10:36 Time: 10:52 09/10/23 10:36 Patient unable to answer at this time (ie. confused, unrespo /Reproduction History /Reproductive History - property underwriter: /Reproductive Hx- property underwriter Hx Now No 09/10/23 10:36 Gestational Age (in weeks): EDC: Hx Hx Para Hx Section SAB Active Medications Active Medications: Current Medications Generic Name Dose Route Start Last Admin Trade Name Freq PRN Reason Stop Dose Admin Lactated Ringer's 1,000 mls @ 15 mls/hr 09/10/23 10:30 09/10/23 11:00 IV 15 mls/hr .Q48H FLAVIO Administration PFSH Medical History COVID-19 virus detected (04/2020) Old inferior wall myocardial infarction Obesity Atherosclerosis of coronary artery bypass graft without angina pectoris Atherosclerosis of coronary artery of [place] heart without angina pectoris Essential (primary) hypertension Hyperlipidemia History of bronchitis History of prostate cancer Hypothyroidism COPD (chronic obstructive pulmonary disease) Home Medications ?Medication ?Instructions ?Recorded ?Last Taken ?Type aspirin 325 mg tablet 325 mg PO QDAY blood thinner 02/19/17 Unknown History multivitamin (Daily Multi-Vitamin 1 tab PO QAM supplement 02/19/17 Unknown History tablet) pyridoxine (vitamin B6) 50 mg 50 mg PO DAILY supplement 09/30/18 Unknown History capsule nitroglycerin 0.4 mg sublingual 0.4 mg sublingual Q5-15M PRN Pain 05/24/20 Unknown Rx tablet #25 tabs cholecalciferol (vitamin D3) 50 50 mcg PO DAILY supplement 06/08/22 Unknown History mcg (2,000 unit) capsule leuprolide (3 month) 22.5 mg (3 22.5 mg subcut [id number] hormone 05/06/23 Unknown History month) subcutaneous syringe (ColonaryConcepts) metoprolol succinate 25 mg 25 mg PO DAILY BP/pulse #90 tabs 05/06/23 09/10/23 Rx tablet,extended release 24 hr simvastatin 40 mg tablet 40 mg PO DAILY cholesterol #90 tabs 05/06/23 Unknown Rx tiotropium bromide 18 mcg capsule 1 cap inhalation DAILY COPD 06/11/23 Unknown History with inhalation device (Spiriva with HandiHaler) acetaminophen 500 mg tablet 1,000 mg (2 x 500 mg) PO Q8H PRN 09/05/23 Unknown Rx Pain 1-10 Or Fever #0 tabs citalopram 10 mg tablet 10 mg PO DAILY #0 tabs 09/05/23 09/10/23 Rx dexamethasone 4 mg tablet 4 mg PO DAILYCM #0 tabs 09/05/23 09/10/23 Rx lactulose 20 gram/30 mL oral 20 g (30 mL) PO BID #0 mL 09/05/23 Unknown Rx solution magnesium citrate 300 ml PO DAILY PRN Constipation 09/05/23 Unknown Rx #0 mL menthol 0.44 %-zinc oxide 20.6 % 1 applic topical BID #0 grams 09/05/23 Unknown Rx topical ointment (Calmoseptine) ondansetron 4 mg disintegrating 8 mg (2 x 4 mg) PO Q6H PRN PRN 09/05/23 Unknown Rx tablet Nausea/Vomiting #0 tabs polysaccharide iron complex 150 mg 150 mg PO DAILY #0 caps 09/05/23 Unknown Rx iron capsule (Ferrex) sennosides 8.6 mg-docusate sodium 2 tab PO BID #0 tabs 09/05/23 Unknown Rx 50 mg tablet (Stool Softener-Stimulant Laxative) Allergy/AdvReac Type Severity Reaction Status Date / Time Penicillins Allergy Hives Verified 09/02/23 08:37 Sulfa (Sulfonamide Allergy Hives Verified 09/02/23 08:37 Antibiotics) erythromycin base AdvReac Intermediate Rash Verified 09/02/23 08:37 minocycline AdvReac Nausea Verified 09/02/23 08:37 Family History Brother CAD (coronary artery disease) Myocardial infarction Sudden cardiac Diabetes Sister Breast cancer Mother Diabetes Surgical History History of colonoscopy History of left heart catheterization (07/25/07) History of coronary artery stent placement (07/16/07) H/O coronary artery bypass surgery (2004) H/O basal cell carcinoma excision History of thoracentesis left elbow bursitis History of hernia repair spermatolectomy History of radical prostatectomy Social History household members: spouse Smoking Status: Former smoker how long ago did patient quit smokin second hand exposure: No alcohol intake: former year quit: 2003 substance use type: does not use what type of physical activity do you participate in: walking and additional details: pulmonary rehab frequency: 1-2 times per week duration: 45-60 minutes/day seatbelt use: always do you feel safe at home: Yes Review of Systems (Anesthesia) ROS Narrative System reviewed and no additional complaints, except as documented.
--- NOTE | 2023-09-10 11:30 | IMM_PTH ---
PATIENT: SONJA HOPE LOC: EN U#:[id number] AGE/SX: 88/M ROOM: RE09/10/[address]: Dr. Joey Causey DO : 1935 BED: DIS: 09/10/2023 SPEC #: [id number] RECD: 09/10/23 14:13 STATUS: SELMA REQ #: [id number] SUSANNE: 09/10/23 11:[address]: Joey Causey DEPT: IMMUNOHISTOCHEMISTRY RECD BY: Maikel Mcgregor ENTERED: 09/10/23 14:14 SP TYPE: IMMUNO OTHR DR: ABHILASH Wood Tissues: B - Gastric mucous membrane Procedures: H Pylori (initial) PHYSICIAN & INSTITUTION [place] [id number] SPECIMEN INFORMATION: Tissue Source: B- Antrum Clinical Info: Anemia Specimen Number: [id number] CPT code: 11012 METHODOLOGY: Deparaffinized sections of prefer/formalin-fixed tissue or PAP/DQ stained slides are incubated with monoclonal/polyclonal antibodies/oligonucleotide probes. Localization is made via biotin free immunoperoxidase method. Appropriate controls are performed and reacted as expected. Results on target cell population are indicated in the following table: RESULTS: ANTIBODY / CLONE RESULT Block B H Pylori (polyclonal) negative These tests were developed and their performance characteristics determined by [facility]. They may not have been cleared or approved by the U.S. Food and Drug Administration. The FDA has determined that such clearance or approval is not necessary. The above immunohistochemical/dualISH markers are ordered and reviewed by the Pathologist. INTERPRETATION: B. Gastric antrum, biopsy: Negative for Helicobacter pylori organisms. HONEY/ 09/11/2023
--- NOTE | 2023-09-10 11:30 | EGD_PTH ---
PATIENT: SONJA HOPE LOC: EN U#:[id number] AGE/SX: 88/M ROOM: RE09/10/[address]: Dr. Joey Causey DO : 1935 BED: DIS: 09/10/2023 SPEC #: [id number] RECD: 09/10/23 12:48 STATUS: SELMA LORI #: [id number] SUSANNE: 09/10/23 11:[address]: Joey Causey DEPT: SURGICAL PATHOLOGY RECD BY: Didi Hogue ENTERED: 09/10/23 13:18 SP TYPE: EGD BIOPSY OT DR: ABHILASH Wood Tissues: A - Duodenum, NOS B - Gastric mucous membrane C - Esophagus, NOS Procedures: Surgery Specimen Level IV HEADER OPERATION: EGD with biopsy PRE-OP DIAGNOSIS: Anemia TISSUE SUBMITTED: A. Duodenal ulcer, B. Antrum, C. Random esophagus MICROSCOPIC DIAGNOSIS A. Duodenal ulcer, biopsy: Fragments of duodenal mucosa with congestion, hemorrhage, focal gastric metaplasia and mild acute and chronic inflammation. B. Antrum, biopsy: Mild gastritis. See microscopic description and comment. C. Esophagus, random biopsy: Fragments of squamous epithelium with acute and chronic inflammation. See comment. HONEY/ 09/11/2023 COMMENT B. The results of immunohistochemistry for Helicobacter pylori will be reported separately ([id number]). C. A few fragments of squamous epithelium with infarction and adherent food particles are also noted. Correlation with clinical, endoscopic findings and appropriate follow up are necessary. MICROSCOPIC DESCRIPTION Slides are reviewed. B. The specimen shows fragments of gastric mucosa with chronic inflammatory cell infiltrates in the lamina propria consisting of lymphocytes and plasma cells, consistent with mild chronic gastritis. GROSS DESCRIPTION A. Received in fixative is one container labeled with the patient's name and designated Duodenal ulcer. The specimen consists of two irregular fragments of light griffith soft tissue that in aggregate measure 0.6 x 0.3 x 0.1 cm. The specimen is totally submitted in one cassette. B. Received in fixative is one container labeled with the patient's name and designated Antrum biopsy. The specimen consists of two irregular fragments of light griffith soft tissue that in aggregate measure 0.6 x 0.3 x 0.1 cm. The specimen is totally submitted in one cassette. C. Received in fixative is one container labeled with the patient's name and designated Random esophagus biopsy. The specimen consists of multiple irregular fragments of light griffith soft tissue that in aggregate measure 1.5 x 0.3 x 0.1 cm. The specimen is totally submitted in one cassette. Asuncion 09/10/2023 TC:2 CPT:07850m7
--- NOTE | 2023-09-10 12:00 | PCM.HP.BLA ---
History and Physical Date of Admission: 09/10/23 SONJA HOPE, is a88 y/o M w/ PMHx: Former tobacco use, Metastatic Prostate CA following with Dr. Grove and Dr. Henderson, HTN, HLD, CAD s/p PCI and CABG, Chronic anemia, COPD, Hypothyroidism. He presented to the [facility] ED on 08/17/23 with history of increasing fatigue and malaise over the last 72 hours with onset of productive cough of griffith yellow-white sputum with persistent cough and mild dyspnea with exertion with unfortunately mechanical fall noted to have hit his head with EMS call at that time however he refused any transport for evaluation and on day of presentation continued to worsen with onset then nausea and a bout of emesis with poor appetite prompting family to bring him in eventually for evaluation given his significant debility. Patient reports that over the last 3 days he has had lightheadedness some send dizziness especially the activity attempts as well. He again reports poor oral intake including food and water. Workup in the ED included T98.4, heart rate 85, BP 108/51, respiratory rate 18, 95% on room air, CBC with WC 13.4, human 10.4, MCV 90.9, platelet 257 with left shift, CMP with sodium 125, chloride 92, glucose 123, hepatic profile with alk phos 1412, lactic acid 1.2, urinalysis not marked appearing, CT brain with chronic volume loss with white matter changes, no acute intracranial findings, chest x-ray with left lower lobe airspace disease with possible atelectasis versus pneumonia's and minimal opacity noted in the right lower lobe as well, EKG with sinus rhythm with no acute evidence of ischemia. Hospital course was complicated by a mechanical fall failure to thrive secondary to metastatic prostate cancer and community-acquired pneumonia due to stenotrophomonas? He has been significantly weak and is currently dealing with metastatic prostate cancer to his bones. He did have a recheck of his PSA which was in the 250 range he does have an elevation in alk phos as well which is related to his bone metastasis. On CT he was found to have community-acquired pneumonia and culture demonstrates stenotrophomonas sensitive to Levaquin which she has been on since admission. Will continue for another 6 days at 750 mg p.o. daily. I discussed with him the plan for discharge today he expressed understanding the risk benefits of going to SNF and would like to go to SNF today. He was also diagnosed with acute on chronic anemia in the hospital . His iron studies demonstrate a chronic disease pattern he does not have any bright red blood or dark stools. I was called because his hemoglobin continues to drop. Of note his hemoglobin did go up to 8.9. ON LICENSE OF [facility] Medical History COVID-19 virus detected (04/2020) Old inferior wall myocardial infarction Obesity Atherosclerosis of coronary artery bypass graft without angina pectoris Atherosclerosis of coronary artery of [place] heart without angina pectoris Essential (primary) hypertension Hyperlipidemia History of bronchitis History of prostate cancer Hypothyroidism COPD (chronic obstructive pulmonary disease) Home Medications ?Medication ?Instructions ?Recorded ?Last Taken ?Type aspirin 325 mg tablet 325 mg PO QDAY blood thinner 02/19/17 Unknown History multivitamin (Daily Multi-Vitamin 1 tab PO QAM supplement 02/19/17 Unknown History tablet) pyridoxine (vitamin B6) 50 mg 50 mg PO DAILY supplement 09/30/18 Unknown History capsule nitroglycerin 0.4 mg sublingual 0.4 mg sublingual Q5-15M PRN Pain 05/24/20 Unknown Rx tablet #25 tabs cholecalciferol (vitamin D3) 50 50 mcg PO DAILY supplement 06/08/22 Unknown History mcg (2,000 unit) capsule leuprolide (3 month) 22.5 mg (3 22.5 mg subcut [id number] hormone 05/06/23 Unknown History month) subcutaneous syringe (Videum) metoprolol succinate 25 mg 25 mg PO DAILY BP/pulse #90 tabs 05/06/23 Unknown Rx tablet,extended release 24 hr simvastatin 40 mg tablet 40 mg PO DAILY cholesterol #90 tabs 05/06/23 Unknown Rx tiotropium bromide 18 mcg capsule 1 cap inhalation DAILY COPD 06/11/23 Unknown History with inhalation device (Spiriva with HandiHaler) acetaminophen 500 mg tablet 1,000 mg (2 x 500 mg) PO Q8H PRN 09/05/23 Unknown Rx Pain 1-10 Or Fever #0 tabs citalopram 10 mg tablet 10 mg PO DAILY #0 tabs 09/05/23 Unknown Rx dexamethasone 4 mg tablet 4 mg PO DAILYCM #0 tabs 09/05/23 Unknown Rx lactulose 20 gram/30 mL oral 20 g (30 mL) PO BID #0 mL 09/05/23 Unknown Rx solution magnesium citrate 300 ml PO DAILY PRN Constipation 09/05/23 Unknown Rx #0 mL menthol 0.44 %-zinc oxide 20.6 % 1 applic topical BID #0 grams 09/05/23 Unknown Rx topical ointment (Calmoseptine) ondansetron 4 mg disintegrating 8 mg (2 x 4 mg) PO Q6H PRN PRN 09/05/23 Unknown Rx tablet Nausea/Vomiting #0 tabs polysaccharide iron complex 150 mg 150 mg PO DAILY #0 caps 09/05/23 Unknown Rx iron capsule (Ferrex) sennosides 8.6 mg-docusate sodium 2 tab PO BID #0 tabs 09/05/23 Unknown Rx 50 mg tablet (Stool Softener-Stimulant Laxative) Allergy/AdvReac Type Severity Reaction Status Date / Time Penicillins Allergy Hives Verified 09/02/23 08:37 Sulfa (Sulfonamide Allergy Hives Verified 09/02/23 08:37 Antibiotics) erythromycin base AdvReac Intermediate Rash Verified 09/02/23 08:37 minocycline AdvReac Nausea Verified 09/02/23 08:37 Family History Brother CAD (coronary artery disease) Myocardial infarction Sudden cardiac DiabetesSister Breast cancerMother Diabetes Surgical History History of colonoscopy History of left heart catheterization (07/25/07) History of coronary artery stent placement (07/16/07) H/O coronary artery bypass surgery (2004) H/O basal cell carcinoma excision History of thoracentesis left elbow bursitis History of hernia repair spermatolectomy History of radical prostatectomy Social History household members: spouse Smoking Status: Former smoker how long ago did patient quit smokin second hand exposure: No alcohol intake: former year quit: 2003 substance use type: does not use what type of physical activity do you participate in: walking and additional details: pulmonary rehab frequency: 1-2 times per week duration: 45-60 minutes/day seatbelt use: always do you feel safe at home: Yes ROS Constitutional Constitutional: Reports systems reviewed and no addt'l complaints, except as documented, fatigue and weakness Eyes Eyes: Reports systems reviewed and no addt'l complaints, except as documented ENT HEENT: Reports systems reviewed and no addt'l complaints, except as documented Cardiovascular Cardiovascular: Reports systems reviewed and no addt'l complaints, except as documented Respiratory/Chest Respiratory/Chest: Reports systems reviewed and no addt'l complaints, except as documented Gastrointestinal Gastrointestinal: Reports systems reviewed and no addt'l complaints, except as documented Genitourinary Genitourinary: Reports systems reviewed and no addt'l complaints, except as documented Musculoskeletal Musculoskeletal: Reports systems reviewed and no addt'l complaints, except as documented Integumentary Integumentary: Reports systems reviewed and no addt'l complaints, except as documented Neurologic Neurologic: Reports systems reviewed and no addt'l complaints, except as documented Psychiatric Psychiatric: Reports systems reviewed and no addt'l complaints, except as documented Endocrine Endocrinology: Reports systems reviewed and no addt'l complaints, except as documented Hematologic/Lymphatic Hematologic/Lymphatic: Reports systems reviewed and no addt'l complaints, except as documented Allergic/Immunologic Allergic/Immunologic: Reports systems reviewed and no addt'l complaints, except as documented Physical Exam Const alert General Appearance: cooperative HEENT normocephalic Eyes PERRL and EOMs intact bilaterally Neck supple, no JVD and no carotid bruits Resp normal respiratory effort, normal air movement and clear to auscultation bilaterally Cardio regular rate and regular rhythm GI normal to inspection, nondistended, normoactive bowel sounds, non-tender and non-distended Extremity normal capillary refill General Extremity: Negative for edema Skin no rashes or lesions noted General Skin Exam: no breakdown Psych affect normal Appearance: appropriate Lab / Micro Data 09/06/23 05:30 09/04/23 05:28 Labs: Laboratory Results - last 24 hr 09/06/23 05:30: Hgb 7.6 L, Hct 24.9 L 09/06/23 07:50: Blood Type O POSITIVE, Antibody Screen NEGATIVE, Crossmatch See Detail Micro: Microbiology 09/06/23 06:00 Nasal Secretion SARS-CoV-2 Antigen (Rapid) - Final Assessment & Plan Assessment/Plan (1) Left lower lobe pulmonary infiltrate: (2) Anemia: PLAN: Plan 88-year-old gentleman with metastatic prostate cancer status post mechanical fall and failure to thrive secondary to metastatic prostate cancer and community-acquired pneumonia ? He is currently on chemotherapy for metastatic prostate cancer, he was initially diagnosed in 1994 and currently in his bones ? He should undergo an upper and lower endoscopy to evaluate his upper or lower GI tract for his worsening anemia. -He was explained alternatives, risk, benefits include not withstanding bleeding, infection, sepsis, perforation, need for charge and . Have an ASA of 3.
--- NOTE | 2023-09-10 12:11 | OP.CCLET_ITS ---
09/10/2023 Chapito Das Re : Upper GI endoscopy procedure for Julio Garcia Dear Thiago This procedure was performed on Sunday, September 10, 2023. My impressions and recommendations are as follows: Impressions : - Severe erosive esophagitis with bleeding. Biopsied. - Non-bleeding gastric ulcers with no stigmata of bleeding. Biopsied. - Non-bleeding duodenal diverticulum. - Non-bleeding duodenal ulcers with pigmented material. Biopsied. Recommendations : - Return patient to referring hospital for ongoing care. - Resume previous diet. - No aspirin, ibuprofen, naproxen, or other non-steroidal anti-inflammatory drugs for 12 weeks. - Use Prilosec (omeprazole) 40 mg PO BID. - Stop Decadron My findings are described in the full procedure note, which is enclosed. If I can be of further assistance, please feel free to contact me at . Sincerely, Joey Causey, 09/10/2023 12:10:57 PM This report has been signed electronically.
--- NOTE | 2023-09-10 12:11 | OP.EGD_ITS ---
Patient Name: Julio Garcia Procedure Date: 09/10/2023 11:15 AM Date of : 1935 Age: 88 Procedure: Upper GI endoscopy Indications: Epigastric abdominal pain Providers: Joey Causey DO Medicines: Monitored Anesthesia Care Patient Profile: This is an 88 year old male. Refer to note in patient chart for documentation of history and physical. Patient has symptoms of acute nausea and acute vomiting. Complications: No immediate complications. Procedure: Pre-Anesthesia Assessment: - Prior to the procedure, a History and Physical was performed, and patient medications and allergies were reviewed. The patient is competent. The risks and benefits of the procedure and the sedation options and risks were discussed with the patient. All questions were answered and informed consent was obtained. Patient identification and proposed procedure were verified by the physician in the pre-procedure area. Mental Status Examination: alert and oriented. Airway Examination: normal oropharyngeal airway and neck mobility. Respiratory Examination: clear to auscultation. CV Examination: normal. Prophylactic Antibiotics: The patient does not require prophylactic antibiotics. Prior Anticoagulants: The patient has taken no anticoagulant or antiplatelet agents except for aspirin. ASA Grade Assessment: IV - A patient with severe systemic disease that is a constant threat to life. After reviewing the risks and benefits, the patient was deemed in satisfactory condition to undergo the procedure. The anesthesia plan was to use monitored anesthesia care (MAC). Immediately prior to administration of medications, the patient was re-assessed for adequacy to receive sedatives. The heart rate, respiratory rate, oxygen saturations, blood pressure, adequacy of pulmonary ventilation, and response to care were monitored throughout the procedure. The physical status of the patient was re-assessed after the procedure. After obtaining informed consent, the endoscope was passed under direct vision. Throughout the procedure, the patient's blood pressure, pulse, and oxygen saturations were monitored continuously. The gastroscope was introduced through the mouth, and advanced to the second part of duodenum. The upper GI endoscopy was accomplished without difficulty. The patient tolerated the procedure well. Scope In: 11:54:46 AM Scope Out: 12:04:07 PM Total Procedure Duration Time 0 hours 9 minutes 21 seconds Findings: Severe esophagitis with bleeding was found 21 to 40 cm from the incisors. Biopsies were taken with a cold forceps for histology. Verification of patient identification for the specimen was done. Estimated blood loss was minimal. Many non-bleeding cratered gastric ulcers with no stigmata of bleeding were found in the gastric antrum. The largest lesion was 10 mm in largest dimension. Biopsies were taken with a cold forceps for histology. Verification of patient identification for the specimen was done. Estimated blood loss was minimal. Biopsies were taken with a cold forceps for Helicobacter pylori testing. Verification of patient identification for the specimen was done. Estimated blood loss was minimal. A 12 mm non-bleeding diverticulum was found in the first portion of the duodenum. Many non-bleeding cratered duodenal ulcers with pigmented material were found in the duodenal bulb, in the first portion of the duodenum and in the second portion of the duodenum. The largest lesion was 20 mm in largest dimension. Biopsies were taken with a cold forceps for histology. Verification of patient identification for the specimen was done. Estimated blood loss was minimal. Impression: - Severe erosive esophagitis with bleeding. Biopsied. - Non-bleeding gastric ulcers with no stigmata of bleeding. Biopsied. - Non-bleeding duodenal diverticulum. - Non-bleeding duodenal ulcers with pigmented material. Biopsied. Recommendation: - Return patient to referring hospital for ongoing care. - Resume previous diet. - No aspirin, ibuprofen, naproxen, or other non-steroidal anti-inflammatory drugs for 12 weeks. - Use Prilosec (omeprazole) 40 mg PO BID. - Stop Decadron Procedure Code(s): --- Professional --- 16157, Esophagogastroduodenoscopy, flexible, transoral; with biopsy, single or multiple CPT copyright 2021 [employer] [place] [employer]. All rights reserved. The codes documented in this report are preliminary and upon operations associate review may be revised to meet current compliance requirements. Joey Causey DO 09/10/2023 12:10:57 PM This report has been signed electronically. Number of Addenda: 0 Note Initiated On: 09/10/2023 11:15 AM
--- NOTE | 2023-09-10 12:12 | PCM.POST.ANE ---
Anesthesia: Postop Eval I Current Vital Signs Temperature: 97.4 F Pulse Rate: 74 Blood Pressure: 96/47 Respiratory Rate: 16 Pulse Ox: 99 Oxygen Delivery Method: Room Air Assessment Airway patent: Yes Spontaneous unlabored respirations: Yes Mental status: Awake and Calm nausea: No Vomiting: No Anesthesia Complication: No Fluid Hydration Crystalloid volume administer (ml): 400 Total IV fluid infused: 400 Progress Note Anesthesia document: Postop Eval 1 completed: Yes
--- NOTE | 2023-09-10 16:51 | PCM.POSTANE2 ---
Anesthesia Postop Eval I Sum Postop Eval Completion status Anesthesia document: Postop Eval 1 completed: Yes Anesthesia Postop Eval I Summary Anesthesia Postop Eval I Summary: Anesthesia Postop Eval I: Assessment Summary Airway patent Yes 09/10/23 12:15 [email or web address] Spontaneous unlabored Yes 09/10/23 12:15 [email or web address] respirations Mental status Awake,Calm 09/10/23 12:15 [email or web address] nausea No 09/10/23 12:15 [email or web address] Vomiting No 09/10/23 12:15 [email or web address] Anesthesia Postop Eval I: Fluid Summary Crystalloid volume administer 400 09/10/23 12:15 [email or web address] (ml) Colloids volume administered ( ml) Blood Product volume administered (ml) Total IV fluid infused 400 09/10/23 12:15 [email or web address] Anesthesia Postop Eval I: Summary Notes Anesthesia Complication No 09/10/23 12:15 [email or web address] Anesthesia Complication Comment: Post-operative progress note Anesthesia: Postop Eval II Evaluation Mental status: Awake and Calm Pain Level: 0 nausea: No Vomiting: No Complications Anesthesia Complication: No
== END 2023-09-10 12:55 | disposition home or self-care (01) ==
LOC: EN 10:33 → AC 10:33
PROVIDERS: PCP Physician Assistant; Referring Provider Physician Assistant; Visit Provider Internal Medicine Gastroenterology
PROC: 0DJ08ZZ Inspection of Upper Intestinal Tract, Via Natural or Artificial Opening Endoscopic (ICD-10-PCS; CPT 43235; principal; 2023-09-10 11:25)
DX: D64.9 Anemia, unspecified (principal); J44.9 Chronic obstructive pulmonary disease, unspecified; K26.9 Duodenal ulcer, unspecified as acute or chronic, without hemorrhage or perforation; I25.10 Atherosclerotic heart disease of native coronary artery without angina pectoris; E78.5 Hyperlipidemia, unspecified; K20.80 Other esophagitis without bleeding; K25.9 Gastric ulcer, unspecified as acute or chronic, without hemorrhage or perforation; K57.10 Diverticulosis of small intestine without perforation or abscess without bleeding; Z87.891 Personal history of nicotine dependence; I10 Essential (primary) hypertension; R91.8 Other nonspecific abnormal finding of lung field; I25.2 Old myocardial infarction; Z85.46 Personal history of malignant neoplasm of prostate; Z79.82 Long term (current) use of aspirin; Z95.5 Presence of coronary angioplasty implant and graft; Z90.79 Acquired absence of other genital organ(s); Z92.21 Personal history of antineoplastic chemotherapy
CPT/HCPCS: 43239; 88305; 88342; J7120; A4216; J2405